=== PATIENT | female | born 1960 | race African-American/Black ===

== ENCOUNTER 2016-12-31 17:38 | Inpatient (IN) | payer MEDICAID ==
[~2016-12-31] VITALS: Ht 157.5 cm; Wt 85.3 kg
[~2016-12-31 17:38] MED LIST: CALC0.253 PO; CARV12.545 PO; CLON0.1T PO; ESTR0.3T3 PO; FERR-43 PO; FURO40TA5 PO; GABA-290 PO; HYDR100T26 PO; INSULIN LISPRO; LEVEMIR; LEVO25TA7 PO; LISI-604 PO; LOSA100T14 PO; NIFE60TA64 PO; OMEP20TA80 PO; SIMV40TA5 PO; [UNRECOGNIZED DRUG - OTHER]
[2016-12-31] MEDS ORDERED: IPRATROPIUM BROMIDE (0.02%) 0.5MG/2.5ML NEB HHN STA (18:18)
[2016-12-31] MEDS ORDERED: ALBUTEROL (0.083%) 2.5MG/3ML NEB HHN STA (18:18)
[2016-12-31] MEDS ORDERED: NITROGLYCERIN OINT 1GM/INCH UDPKT TD ONE (18:30)
[2016-12-31] MEDS ORDERED: ENALAPRIL 2.5MG/2ML VIAL 2ML IV ONE (18:30)
[2016-12-31] MEDS ORDERED: LEVOFLOXACIN 750MG PREMIX 150 ML IV ONE (18:30)
[2016-12-31] MEDS ORDERED: FUROSEMIDE 40MG/4ML VIAL IVP ONE (18:30)
[2016-12-31] MEDS ORDERED: MAGNESIUM/ALUMINUM HYDROXIDE/SIMETHICONE 30ML UDC PO PRN (19:00)
[2016-12-31] MEDS ORDERED: IPRATROPIUM/ALBUTEROL 0.5-3(2.5)MG/3ML NEB INH PRN (19:00)
[2016-12-31 19:07] LABS: PROTHROMBIN TIME 10.8 sec
[2016-12-31] MEDS ORDERED: HYDRALAZINE 20MG/ML VIAL IV ONE (21:00)
[2016-12-31 21:24] LABS: HEMATOCRIT. 31.7 % (36.0-48.0); HEMOGLOBIN. 10.6 g/dL (12.0-16.0); MEAN CORPUSCULAR HEMOGLOBIN 27.4 pg (28.0-32.0); MEAN CORPUSCULAR VOLUME 82.1 fL (81.0-99.0); MEAN PLATELET VOLUME 9.8 fl (7.4-10.4); PLATELET 266 x1000/uL (130-400); RED BLOOD CELL COUNT 3.87 mill/uL (4.2-5.4); RED CELL DISTRIBUTION WIDTH 13.3 % (11.6-14.6)
[2016-12-31 21:38] LABS: CARBON DIOXIDE 22 mEq/L (21-32); CHLORIDE 102 mEq/L (98-107)
[2016-12-31 21:40] LABS: CREATINE KINASE 235 IU/L (26-192); TROPONIN I 0.03 ng/mL (0.00-0.04)
[2016-12-31 21:41] LABS: CREATINE KINASE MB FRACTION 1.2 ng/mL (0.5-3.6)
[2016-12-31 22:01] LABS: ATYPICAL LYMPHOCYTES 1; PLATELET ESTIMATE NORMAL
[2016-12-31] MEDS ORDERED: MAGNESIUM 2 G PREMIX 50 ML IV ONE (22:30)
[2017-01-01] VITALS (9 sets, daily range): BP systolic 130–179; BP diastolic 69–95
[2017-01-01] MEDS: CLONIDINE 0.1MG TABLET PO PRN ×3 (03:48→23:42)
[2017-01-01] MEDS ORDERED: CEFTRIAXONE 1 G PREMIX 50 ML IV SCH (06:00)
[2017-01-01] MEDS ORDERED: DEXTROSE 50% WATER 50ML SYRINGE IV PRN (06:30)
[2017-01-01] MEDS: BLOOD SUGAR DIAGNOSTIC STRIP TEST SCH ×4 (06:40→21:23)
[2017-01-01] MEDS ORDERED: INSULIN LISPRO 100 UNITS/ML SUBCUT SCH (07:40)
[2017-01-01] MEDS ORDERED: IPRATROPIUM/ALBUTEROL 0.5-3(2.5)MG/3ML NEB HHN PRN (08:30)
[2017-01-01 08:47] LABS: HEMATOCRIT. 26.5 % (36.0-48.0); HEMOGLOBIN. 8.9 g/dL (12.0-16.0); MEAN CORPUSCULAR HEMOGLOBIN 27.6 pg (28.0-32.0); MEAN CORPUSCULAR VOLUME 81.9 fL (81.0-99.0); MEAN PLATELET VOLUME 10.3 fl (7.4-10.4); PLATELET 210 x1000/uL (130-400); RED BLOOD CELL COUNT 3.23 mill/uL (4.2-5.4); RED CELL DISTRIBUTION WIDTH 13.1 % (11.6-14.6)
[2017-01-01 08:56] LABS: CARBON DIOXIDE 23 mEq/L (21-32); CHLORIDE 103 mEq/L (98-107)
[2017-01-01] MEDS ORDERED: AZITHROMYCIN 500 MG TABLET PO SCH (09:00)
[2017-01-01] MEDS ORDERED: INSULIN DETEMIR UD 100 UNITS/ML SYR SUBCUT SCH (10:00)
[2017-01-01] MEDS ORDERED: ESTR0.3T3 PO (10:34)
[2017-01-01 10:42] LABS: PLATELET ESTIMATE NORMAL
[2017-01-01] MEDS: NIFEDIPINE XL 30MG TAB PO SCH (10:44)
[2017-01-01] MEDS: INSULIN DETEMIR UD 100 UNITS/ML SYR SUBCUT SCH ×2 (10:45→21:20)
[2017-01-01] MEDS: SODIUM CHLORIDE 0.9% 1,000 ML IV SCH (11:07)
[2017-01-01] MEDS: IPRATROPIUM/ALBUTEROL 0.5-3(2.5)MG/3ML NEB HHN SCH ×2 (11:53→21:07)
[2017-01-01] MEDS: INSULIN LISPRO 100 UNITS/ML SUBCUT SCH ×3 (12:27→21:20)
[2017-01-01] MEDS ORDERED: MAGNESIUM 2 G PREMIX 50 ML IV SCH (15:00)
[2017-01-01] MEDS ORDERED: INSULIN DETEMIR SCH (17:00)
[2017-01-02] VITALS (7 sets, daily range): BP systolic 158–197; BP diastolic 78–98
[2017-01-02] MEDS: SODIUM CHLORIDE 0.9% 1,000 ML IV SCH ×2 (02:13→14:39)
[2017-01-02] MEDS: IPRATROPIUM/ALBUTEROL 0.5-3(2.5)MG/3ML NEB HHN SCH ×4 (02:39→20:48)
[2017-01-02 06:34] LABS: HEMATOCRIT 26.4 % (36.0-48.0); HEMOGLOBIN 8.9 g/dL (12.0-16.0); MEAN CORPUSCULAR HEMOGLOBIN 27.5 pg (28.0-32.0); MEAN CORPUSCULAR VOLUME 81.9 fL (81.0-99.0); PLATELET 201 x1000/uL (130-400); RED BLOOD CELL COUNT 3.22 mill/uL (4.2-5.4); RED CELL DISTRIBUTION WIDTH 12.8 % (11.6-14.6)
[2017-01-02 07:08] LABS: CARBON DIOXIDE 23 mEq/L (21-32); CHLORIDE 109 mEq/L (98-107)
[2017-01-02] MEDS: BLOOD SUGAR DIAGNOSTIC STRIP TEST SCH ×4 (07:11→21:15)
[2017-01-02] MEDS: INSULIN LISPRO 100 UNITS/ML SUBCUT SCH ×4 (07:13→21:14)
[2017-01-02] MEDS: CEFTRIAXONE 1 G PREMIX 50 ML IV SCH (08:06)
[2017-01-02] MEDS: NIFEDIPINE XL 30MG TAB PO SCH (09:21)
[2017-01-02] MEDS: INSULIN DETEMIR UD 100 UNITS/ML SYR SUBCUT SCH ×2 (09:21→21:15)
[2017-01-02] MEDS: CLONIDINE 0.1MG TABLET PO PRN (14:45)
[2017-01-02] MEDS: NIFEDIPINE XL 60MG TAB PO SCH (17:07)
[2017-01-02] MEDS: HYDRALAZINE HCL 100MG TABLET PO SCH (21:13)
[2017-01-02] MEDS: CARVEDILOL 12.5MG TABLET PO SCH (21:14)
[2017-01-03] VITALS: BP_SYST 116; BP_SYST 146; BP_DIAS 64; BP_DIAS 73
[2017-01-03] MEDS: HYDROCODONE/ACETAMINOPHEN 5/325MG TABLET PO PRN ×2 (00:14→10:57)
[2017-01-03] MEDS: IPRATROPIUM/ALBUTEROL 0.5-3(2.5)MG/3ML NEB HHN SCH ×5 (00:41→20:22)
[2017-01-03] MEDS: SODIUM CHLORIDE 0.9% 1,000 ML IV SCH ×2 (03:46→16:28)
[2017-01-03 04:00] VITALS: BP 154/77
[2017-01-03] MEDS: BLOOD SUGAR DIAGNOSTIC STRIP TEST SCH ×4 (06:03→21:28)
[2017-01-03] MEDS: INSULIN LISPRO 100 UNITS/ML SUBCUT SCH ×4 (06:03→21:00)
[2017-01-03 06:16] LABS: BASOPHILS % 0.8 % (0.0-2.0); EOSINOPHILS % 0.7 % (0.0-5.0); HEMATOCRIT. 25.5 % (36.0-48.0); HEMOGLOBIN. 8.6 g/dL (12.0-16.0); LYMPHOCYTES % 14.3 % (20.0-50.0); MEAN CORPUSCULAR HEMOGLOBIN 27.6 pg (28.0-32.0); MEAN CORPUSCULAR VOLUME 82.2 fL (81.0-99.0); MEAN PLATELET VOLUME 9.7 fl (7.4-10.4); MONOCYTES % 13.5 % (2.0-8.0); NEUTROPHILS % 70.7 % (40.0-76.0); PLATELET 197 x1000/uL (130-400); RED BLOOD CELL COUNT 3.11 mill/uL (4.2-5.4); RED CELL DISTRIBUTION WIDTH 13.2 % (11.6-14.6)
[2017-01-03] MEDS: CEFTRIAXONE 1 G PREMIX 50 ML IV SCH (06:26)
[2017-01-03] MEDS: HYDRALAZINE HCL 100MG TABLET PO SCH ×3 (06:27→21:27)
[2017-01-03 07:12] LABS: CARBON DIOXIDE 21 mEq/L (21-32); CHLORIDE 110 mEq/L (98-107)
[2017-01-03 08:00] VITALS: BP 158/77
[2017-01-03] MEDS: NIFEDIPINE XL 60MG TAB PO SCH (08:48)
[2017-01-03] MEDS: CARVEDILOL 12.5MG TABLET PO SCH ×2 (08:48→21:28)
[2017-01-03] MEDS: INSULIN DETEMIR UD 100 UNITS/ML SYR SUBCUT SCH ×2 (10:12→22:05)
[2017-01-03 12:00] VITALS: BP 116/69
[2017-01-03 16:00] VITALS: BP 142/71
[2017-01-03 16:40] LABS: CLARITY URINE CLOUDY (CLEAR); COLOR URINE YELLOW (YELLOW); GLUCOSE URINE 1+ (NEGATIVE); KETONES URINE TRACE (NEGATIVE); LEUKOCYTE ESTERASE URINE NEGATIVE (NEGATIVE); NITRITE URINE NEGATIVE (NEGATIVE); OCCULT BLOOD URINE NEGATIVE (NEGATIVE); PH URINE 5.5 (4.5-8.0); PROTEIN URINE 4+ (NEGATIVE); SPECIFIC GRAVITY URINE 1.023 (1.005-1.030); UROBILINOGEN URINE 0.2 E.U./dL (0.2-1.0)
[2017-01-03 20:00] VITALS: BP 148/80
[2017-01-03] MEDS: ONDANSETRON HCL 4MG/2ML VIAL IV PRN (21:27)
[2017-01-04] VITALS (7 sets, daily range): BP systolic 111–151; BP diastolic 58–74
[2017-01-04] MEDS: IPRATROPIUM/ALBUTEROL 0.5-3(2.5)MG/3ML NEB HHN SCH ×4 (02:02→21:08)
[2017-01-04] MEDS: SODIUM CHLORIDE 0.9% 1,000 ML IV SCH ×2 (04:43→18:15)
[2017-01-04] MEDS: INSULIN LISPRO 100 UNITS/ML SUBCUT SCH ×4 (06:15→21:00)
[2017-01-04] MEDS: BLOOD SUGAR DIAGNOSTIC STRIP TEST SCH ×4 (06:15→21:26)
[2017-01-04] MEDS: CEFTRIAXONE 1 G PREMIX 50 ML IV SCH (06:15)
[2017-01-04] MEDS: HYDRALAZINE HCL 100MG TABLET PO SCH ×3 (06:15→21:28)
[2017-01-04 06:34] LABS: BASOPHILS % 0.5 % (0.0-2.0); EOSINOPHILS % 1.1 % (0.0-5.0); HEMATOCRIT. 24.8 % (36.0-48.0); HEMOGLOBIN. 8.2 g/dL (12.0-16.0); LYMPHOCYTES % 16.6 % (20.0-50.0); MEAN CORPUSCULAR HEMOGLOBIN 27.5 pg (28.0-32.0); MEAN CORPUSCULAR VOLUME 83.6 fL (81.0-99.0); MEAN PLATELET VOLUME 10.1 fl (7.4-10.4); MONOCYTES % 12.3 % (2.0-8.0); NEUTROPHILS % 69.5 % (40.0-76.0); PLATELET 188 x1000/uL (130-400); RED BLOOD CELL COUNT 2.97 mill/uL (4.2-5.4)
[2017-01-04] MEDS: ONDANSETRON HCL 4MG/2ML VIAL IV PRN (07:25)
[2017-01-04] MEDS: NIFEDIPINE XL 60MG TAB PO SCH (08:13)
[2017-01-04] MEDS: CARVEDILOL 12.5MG TABLET PO SCH ×3 (08:14→21:29)
[2017-01-04] MEDS: LEVOTHYROXINE SODIUM 25MCG TABLET PO SCH (10:16)
[2017-01-04] MEDS: CALCITRIOL 0.25MCG CAPSULE PO SCH (10:16)
[2017-01-04] MEDS: FERROUS SULFATE 325MG TABLET PO SCH ×2 (10:16→17:07)
[2017-01-04] MEDS: FOLIC ACID/VITAMIN B COMP W-C TABLET PO SCH (10:17)
[2017-01-04 10:20] LABS: TOTAL IRON BINDING CAPACITY 127 ug/dL (250-450)
[2017-01-04] MEDS: INSULIN DETEMIR UD 100 UNITS/ML SYR SUBCUT SCH ×2 (10:20→21:34)
[2017-01-04] MEDS ORDERED: MANNITOL 12.5G (25%) VIAL 50ML IV NR (11:30)
[2017-01-04 12:50] LABS: FERRITIN 772 ng/mL (10-291)
[2017-01-04 13:01] LABS: HEPATITIS B SURFACE ANTIGEN NEGATIVE
[2017-01-04] MEDS: HYDROCODONE/ACETAMINOPHEN 5/325MG TABLET PO PRN ×2 (16:03→20:03)
[2017-01-04] MEDS: GUAIFENESIN 600MG ER TABLET PO SCH (21:28)
[2017-01-04] MEDS: EPOETIN ALFA 4000UNITS/ML VIAL SUBCUT SCH (21:30)
[2017-01-05] VITALS: BP 139/68
[2017-01-05] MEDS: IPRATROPIUM/ALBUTEROL 0.5-3(2.5)MG/3ML NEB HHN SCH ×4 (02:46→20:21)
[2017-01-05 04:00] VITALS: BP 135/68
[2017-01-05] MEDS: BLOOD SUGAR DIAGNOSTIC STRIP TEST SCH ×4 (06:46→20:27)
[2017-01-05] MEDS: CEFTRIAXONE 1 G PREMIX 50 ML IV SCH (06:46)
[2017-01-05] MEDS: HYDRALAZINE HCL 100MG TABLET PO SCH ×3 (06:46→21:24)
[2017-01-05] MEDS: LEVOTHYROXINE SODIUM 25MCG TABLET PO SCH (06:46)
[2017-01-05 06:49] LABS: PROTHROMBIN TIME 10.5 sec
[2017-01-05] MEDS: INSULIN LISPRO 100 UNITS/ML SUBCUT SCH ×4 (06:52→20:34)
[2017-01-05 07:40] LABS: BASOPHILS % 0.5 % (0.0-2.0); EOSINOPHILS % 1.2 % (0.0-5.0); HEMATOCRIT. 23.6 % (36.0-48.0); HEMOGLOBIN. 7.9 g/dL (12.0-16.0); LYMPHOCYTES % 16.7 % (20.0-50.0); MEAN CORPUSCULAR HEMOGLOBIN 27.7 pg (28.0-32.0); MEAN CORPUSCULAR VOLUME 83.1 fL (81.0-99.0); MEAN PLATELET VOLUME 10.3 fl (7.4-10.4); MONOCYTES % 12.3 % (2.0-8.0); NEUTROPHILS % 69.3 % (40.0-76.0); PLATELET 162 x1000/uL (130-400); RED BLOOD CELL COUNT 2.84 mill/uL (4.2-5.4)
[2017-01-05 08:00] VITALS: BP 149/74
[2017-01-05] MEDS: FOLIC ACID/VITAMIN B COMP W-C TABLET PO SCH (08:39)
[2017-01-05] MEDS: NIFEDIPINE XL 60MG TAB PO SCH (08:39)
[2017-01-05] MEDS: GUAIFENESIN 600MG ER TABLET PO SCH ×2 (08:39→20:24)
[2017-01-05] MEDS: CALCITRIOL 0.25MCG CAPSULE PO SCH (08:39)
[2017-01-05] MEDS: CARVEDILOL 12.5MG TABLET PO SCH ×2 (08:39→20:24)
[2017-01-05] MEDS: DIPHENHYDRAMINE 25MG CAPSULE PO PRN (08:39)
[2017-01-05] MEDS: SODIUM CHLORIDE 0.9% 1,000 ML IV SCH (08:40)
[2017-01-05] MEDS: FERROUS SULFATE 325MG TABLET PO SCH ×2 (08:40→17:19)
[2017-01-05] MEDS: INSULIN DETEMIR UD 100 UNITS/ML SYR SUBCUT SCH ×2 (10:26→21:26)
[2017-01-05] MEDS: ONDANSETRON HCL 4MG/2ML VIAL IV PRN ×2 (10:27→19:46)
[2017-01-05 12:00] VITALS: BP 139/70
[2017-01-05 16:00] VITALS: BP 150/76
[2017-01-05] MEDS: AZITHROMYCIN 500 MG in DEXT 5% WATER 250 ML IV SCH (17:19)
[2017-01-05 20:00] VITALS: BP 149/89
[2017-01-06] VITALS: BP 142/73
[2017-01-06] MEDS: SODIUM CHLORIDE 0.9% 1,000 ML IV SCH (00:17)
[2017-01-06] MEDS: IPRATROPIUM/ALBUTEROL 0.5-3(2.5)MG/3ML NEB HHN SCH ×5 (01:44→20:30)
[2017-01-06 04:00] VITALS: BP 146/70
[2017-01-06] MEDS: HYDRALAZINE HCL 100MG TABLET PO SCH ×3 (05:32→21:48)
[2017-01-06 05:47] LABS: BASOPHILS % 0.7 % (0.0-2.0); EOSINOPHILS % 1.4 % (0.0-5.0); HEMATOCRIT. 25.2 % (36.0-48.0); HEMOGLOBIN. 8.3 g/dL (12.0-16.0); LYMPHOCYTES % 19.3 % (20.0-50.0); MEAN CORPUSCULAR HEMOGLOBIN 27.3 pg (28.0-32.0); MEAN CORPUSCULAR VOLUME 82.9 fL (81.0-99.0); MONOCYTES % 12.3 % (2.0-8.0); NEUTROPHILS % 66.3 % (40.0-76.0); PLATELET 198 x1000/uL (130-400); RED BLOOD CELL COUNT 3.04 mill/uL (4.2-5.4); RED CELL DISTRIBUTION WIDTH 13.1 % (11.6-14.6)
[2017-01-06] MEDS: BLOOD SUGAR DIAGNOSTIC STRIP TEST SCH ×4 (06:23→21:00)
[2017-01-06] MEDS: CEFTRIAXONE 1 G PREMIX 50 ML IV SCH (06:24)
[2017-01-06] MEDS: LEVOTHYROXINE SODIUM 25MCG TABLET PO SCH (06:24)
[2017-01-06] MEDS: INSULIN LISPRO 100 UNITS/ML SUBCUT SCH ×4 (06:27→21:47)
[2017-01-06 08:00] VITALS: BP 141/70
[2017-01-06] MEDS: ONDANSETRON HCL 4MG/2ML VIAL IV PRN (08:17)
[2017-01-06] MEDS: FERROUS SULFATE 325MG TABLET PO SCH (08:17)
[2017-01-06] MEDS: FOLIC ACID/VITAMIN B COMP W-C TABLET PO SCH (09:00)
[2017-01-06] MEDS: GUAIFENESIN 600MG ER TABLET PO SCH ×2 (09:00→21:48)
[2017-01-06] MEDS: NIFEDIPINE XL 60MG TAB PO SCH (09:00)
[2017-01-06] MEDS: CALCITRIOL 0.25MCG CAPSULE PO SCH (09:00)
[2017-01-06] MEDS: CARVEDILOL 12.5MG TABLET PO SCH ×2 (09:00→21:49)
[2017-01-06] MEDS: INSULIN DETEMIR UD 100 UNITS/ML SYR SUBCUT SCH ×2 (09:37→21:47)
[2017-01-06] MEDS: ACETAMINOPHEN 325MG TABLET PO PRN (11:54)
[2017-01-06 12:00] VITALS: BP 146/70
[2017-01-06 16:00] VITALS: BP 193/92
[2017-01-06] MEDS ORDERED: HEPARIN SODIUM 1,000 UNIT/1ML VIAL IV NR (17:30)
[2017-01-06] MEDS: AZITHROMYCIN 500 MG in DEXT 5% WATER 250 ML IV SCH (17:53)
[2017-01-06] MEDS: IRON SUCROSE COMPLEX 100 MG/5 ML ML IV SCH (17:53)
[2017-01-06] MEDS: CLONIDINE 0.1MG TABLET PO PRN (17:54)
[2017-01-06 20:00] VITALS: BP 143/76
[2017-01-06] MEDS: EPOETIN ALFA 4000UNITS/ML VIAL SUBCUT SCH (21:48)
[2017-01-07] VITALS (11 sets, daily range): BP systolic 127–198; BP diastolic 69–96
[2017-01-07] MEDS: SODIUM CHLORIDE 0.9% 1,000 ML IV SCH ×3 (00:22→22:00)
[2017-01-07] MEDS: IPRATROPIUM/ALBUTEROL 0.5-3(2.5)MG/3ML NEB HHN SCH ×4 (00:36→20:43)
[2017-01-07 06:00] LABS: BASOPHILS % 0.6 % (0.0-2.0); EOSINOPHILS % 2.9 % (0.0-5.0); HEMATOCRIT. 22.1 % (36.0-48.0); HEMOGLOBIN. 7.4 g/dL (12.0-16.0); LYMPHOCYTES % 20.3 % (20.0-50.0); MEAN CORPUSCULAR HEMOGLOBIN 27.3 pg (28.0-32.0); MEAN CORPUSCULAR VOLUME 81.1 fL (81.0-99.0); MEAN PLATELET VOLUME 9.6 fl (7.4-10.4); MONOCYTES % 12.8 % (2.0-8.0); NEUTROPHILS % 63.4 % (40.0-76.0); PLATELET 191 x1000/uL (130-400); RED BLOOD CELL COUNT 2.72 mill/uL (4.2-5.4); RED CELL DISTRIBUTION WIDTH 12.7 % (11.6-14.6)
[2017-01-07] MEDS: LEVOTHYROXINE SODIUM 25MCG TABLET PO SCH (06:13)
[2017-01-07] MEDS: CEFTRIAXONE 1 G PREMIX 50 ML IV SCH (06:13)
[2017-01-07] MEDS: HYDRALAZINE HCL 100MG TABLET PO SCH ×3 (06:13→21:09)
[2017-01-07] MEDS: INSULIN LISPRO 100 UNITS/ML SUBCUT SCH ×4 (07:40→21:00)
[2017-01-07] MEDS: BLOOD SUGAR DIAGNOSTIC STRIP TEST SCH ×4 (07:40→21:27)
[2017-01-07] MEDS: IRON SUCROSE COMPLEX 100 MG/5 ML ML IV SCH (09:33)
[2017-01-07] MEDS: GUAIFENESIN 600MG ER TABLET PO SCH ×2 (09:34→21:09)
[2017-01-07] MEDS: CALCITRIOL 0.25MCG CAPSULE PO SCH (09:34)
[2017-01-07] MEDS: FOLIC ACID/VITAMIN B COMP W-C TABLET PO SCH (09:34)
[2017-01-07] MEDS: NIFEDIPINE XL 60MG TAB PO SCH (09:34)
[2017-01-07] MEDS: CARVEDILOL 12.5MG TABLET PO SCH ×2 (09:35→21:09)
[2017-01-07] MEDS: INSULIN DETEMIR UD 100 UNITS/ML SYR SUBCUT SCH ×2 (11:57→21:28)
[2017-01-07] MEDS: ONDANSETRON HCL 4MG/2ML VIAL IV PRN (14:16)
[2017-01-07] MEDS: AZITHROMYCIN 500 MG in DEXT 5% WATER 250 ML IV SCH (15:07)
[2017-01-07] MEDS: CLONIDINE 0.1MG TABLET PO PRN (16:01)
[2017-01-08 00:07] VITALS: BP 159/72
[2017-01-08] MEDS: IPRATROPIUM/ALBUTEROL 0.5-3(2.5)MG/3ML NEB HHN SCH ×6 (00:27→19:58)
[2017-01-08] MEDS: SODIUM CHLORIDE 0.9% 1,000 ML IV SCH ×2 (02:45→17:14)
[2017-01-08 04:00] VITALS: BP 183/84
[2017-01-08] MEDS: ONDANSETRON HCL 4MG/2ML VIAL IV PRN ×3 (04:29→17:32)
[2017-01-08] MEDS: CLONIDINE 0.1MG TABLET PO PRN ×2 (04:48→17:13)
[2017-01-08] MEDS: LEVOTHYROXINE SODIUM 25MCG TABLET PO SCH (06:04)
[2017-01-08] MEDS: CEFTRIAXONE 1 G PREMIX 50 ML IV SCH (06:04)
[2017-01-08] MEDS: HYDRALAZINE HCL 100MG TABLET PO SCH ×3 (06:20→23:17)
[2017-01-08] MEDS: BLOOD SUGAR DIAGNOSTIC STRIP TEST SCH ×4 (06:22→20:58)
[2017-01-08] MEDS: INSULIN LISPRO 100 UNITS/ML SUBCUT SCH ×4 (06:22→21:03)
[2017-01-08 06:42] LABS: BASOPHILS % 0.7 % (0.0-2.0); EOSINOPHILS % 2.9 % (0.0-5.0); HEMATOCRIT. 27.2 % (36.0-48.0); HEMOGLOBIN. 9.1 g/dL (12.0-16.0); LYMPHOCYTES % 16.6 % (20.0-50.0); MEAN CORPUSCULAR HEMOGLOBIN 27.4 pg (28.0-32.0); MEAN CORPUSCULAR VOLUME 81.7 fL (81.0-99.0); MEAN PLATELET VOLUME 9.6 fl (7.4-10.4); NEUTROPHILS % 70.8 % (40.0-76.0); PLATELET 255 x1000/uL (130-400); RED BLOOD CELL COUNT 3.33 mill/uL (4.2-5.4); RED CELL DISTRIBUTION WIDTH 13.1 % (11.6-14.6)
[2017-01-08 08:00] VITALS: BP 198/90
[2017-01-08] MEDS: FOLIC ACID/VITAMIN B COMP W-C TABLET PO SCH (09:17)
[2017-01-08] MEDS: NIFEDIPINE XL 60MG TAB PO SCH (09:17)
[2017-01-08] MEDS: CALCITRIOL 0.25MCG CAPSULE PO SCH (09:18)
[2017-01-08] MEDS: CARVEDILOL 12.5MG TABLET PO SCH (09:18)
[2017-01-08] MEDS: INSULIN DETEMIR UD 100 UNITS/ML SYR SUBCUT SCH ×2 (09:19→23:12)
[2017-01-08] MEDS: GUAIFENESIN 600MG ER TABLET PO SCH ×2 (09:25→21:00)
[2017-01-08] MEDS ORDERED: NIFEDIPINE XL 30MG TAB PO NR (11:45)
[2017-01-08 12:00] VITALS: BP 185/89
[2017-01-08] MEDS ORDERED: KCL 20MEQ/100ML PREMIX 100 ML IV NR (14:00)
[2017-01-08 16:00] VITALS: BP 204/118
[2017-01-08] MEDS: AZITHROMYCIN 500 MG in DEXT 5% WATER 250 ML IV SCH (17:14)
[2017-01-08] MEDS: DIPHENHYDRAMINE 25MG CAPSULE PO PRN (17:32)
[2017-01-08 20:00] VITALS: BP 149/78
[2017-01-08] MEDS ORDERED: CARVEDILOL 12.5MG TABLET PO SCH (21:00)
[2017-01-09] VITALS (17 sets, daily range): BP systolic 138–191; BP diastolic 74–93
[2017-01-09] MEDS: IPRATROPIUM/ALBUTEROL 0.5-3(2.5)MG/3ML NEB HHN SCH ×6 (01:12→21:05)
[2017-01-09] MEDS: HYDRALAZINE HCL 100MG TABLET PO SCH ×4 (06:00→21:26)
[2017-01-09] MEDS: SODIUM CHLORIDE 0.9% 1,000 ML IV SCH (06:20)
[2017-01-09] MEDS: BLOOD SUGAR DIAGNOSTIC STRIP TEST SCH ×4 (06:21→21:28)
[2017-01-09] MEDS: CEFTRIAXONE 1 G PREMIX 50 ML IV SCH (06:21)
[2017-01-09] MEDS: LEVOTHYROXINE SODIUM 25MCG TABLET PO SCH (06:21)
[2017-01-09 07:03] LABS: INR 1.1; PARTIAL THROMBOPLASTIN TIME 29.2 sec (24.0-34.0); PROTHROMBIN TIME 11.2 sec
[2017-01-09 07:13] LABS: BASOPHILS % 0.5 % (0.0-2.0); EOSINOPHILS % 2.5 % (0.0-5.0); HEMATOCRIT. 26.7 % (36.0-48.0); HEMOGLOBIN. 9.1 g/dL (12.0-16.0); LYMPHOCYTES % 17.6 % (20.0-50.0); MEAN CORPUSCULAR HEMOGLOBIN 27.6 pg (28.0-32.0); MEAN CORPUSCULAR VOLUME 81.2 fL (81.0-99.0); MEAN PLATELET VOLUME 9.6 fl (7.4-10.4); MONOCYTES % 9.8 % (2.0-8.0); NEUTROPHILS % 69.6 % (40.0-76.0); PLATELET 279 x1000/uL (130-400); RED BLOOD CELL COUNT 3.29 mill/uL (4.2-5.4); RED CELL DISTRIBUTION WIDTH 12.9 % (11.6-14.6)
[2017-01-09 07:32] LABS: CARBON DIOXIDE 23 mEq/L (21-32); CHLORIDE 109 mEq/L (98-107)
[2017-01-09] MEDS: INSULIN LISPRO 100 UNITS/ML SUBCUT SCH ×4 (07:40→21:00)
[2017-01-09] MEDS ORDERED: CLONIDINE 0.2MG TABLET PO PRN (08:15)
[2017-01-09] MEDS: GUAIFENESIN 600MG ER TABLET PO SCH ×2 (09:00→21:26)
[2017-01-09] MEDS: NIFEDIPINE XL 90MG TAB PO SCH (09:00)
[2017-01-09] MEDS: FOLIC ACID/VITAMIN B COMP W-C TABLET PO SCH (09:00)
[2017-01-09] MEDS: CALCITRIOL 0.25MCG CAPSULE PO SCH (09:00)
[2017-01-09] MEDS: CARVEDILOL 25MG TABLET PO SCH ×2 (09:00→21:25)
[2017-01-09] MEDS ORDERED: SODIUM BICARBONATE 4% (2.4MEQ) 5ML VIAL IV ONE (09:34)
[2017-01-09] MEDS ORDERED: LIDOCAINE HCL 1% 20ML VIAL (Pyxis) INJ ONE (09:34)
[2017-01-09] MEDS: INSULIN DETEMIR UD 100 UNITS/ML SYR SUBCUT SCH ×2 (10:00→21:29)
[2017-01-09] MEDS ORDERED: DEXT 5% WATER 250 ML IV ONE (12:00)
[2017-01-09] MEDS ORDERED: FENTANYL CITRATE/PF 50MCG/ML 2ML VIAL ONE (14:01)
[2017-01-09] MEDS ORDERED: FENTANYL CITRATE/PF 50MCG/ML 2ML VIAL IV ONE (14:15)
[2017-01-09] MEDS ORDERED: FENTANYL CITRATE/PF 50MCG/ML 2ML VIAL IV NR (14:30)
[2017-01-09] MEDS: ACETAMINOPHEN 325MG TABLET PO PRN (15:18)
[2017-01-09] MEDS: AZITHROMYCIN 500 MG in DEXT 5% WATER 250 ML IV SCH (15:18)
[2017-01-09] MEDS: HYDROCODONE/ACETAMINOPHEN 5/325MG TABLET PO PRN ×2 (17:18→21:27)
[2017-01-09] MEDS ORDERED: HEPARIN SODIUM 1,000 UNIT/1ML VIAL IV ONE (22:45)
[2017-01-09] MEDS ORDERED: HYDROCODONE/ACETAMINOPHEN 5/325MG TABLET PO STA (22:55)
[2017-01-09] MEDS ORDERED: HYDROCODONE/APAP 7.5/325MG 1 TAB TABLET PO PRN (23:00)
[2017-01-09] MEDS ORDERED: HEPARIN SODIUM 1,000 UNIT/1ML VIAL IV NR (23:30)
[2017-01-10] MEDS: IPRATROPIUM/ALBUTEROL 0.5-3(2.5)MG/3ML NEB HHN SCH ×4 (01:01→11:58)
[2017-01-10 04:00] VITALS: BP 187/90
[2017-01-10] MEDS: HYDRALAZINE HCL 100MG TABLET PO SCH ×2 (04:28→12:29)
[2017-01-10] MEDS: EPOETIN ALFA 4000UNITS/ML VIAL SUBCUT SCH (04:31)
[2017-01-10] MEDS: BLOOD SUGAR DIAGNOSTIC STRIP TEST SCH ×2 (06:25→11:46)
[2017-01-10] MEDS: INSULIN LISPRO 100 UNITS/ML SUBCUT SCH ×2 (06:28→12:29)
[2017-01-10] MEDS: LEVOTHYROXINE SODIUM 25MCG TABLET PO SCH (06:28)
[2017-01-10 08:00] VITALS: BP 164/95
[2017-01-10] MEDS ORDERED: HYDROCODONE/APAP 7.5/325MG 1 TAB TABLET PO PRN (08:15)
[2017-01-10] MEDS: NIFEDIPINE XL 90MG TAB PO SCH (08:32)
[2017-01-10] MEDS: CARVEDILOL 25MG TABLET PO SCH (08:32)
[2017-01-10] MEDS: GUAIFENESIN 600MG ER TABLET PO SCH (08:32)
[2017-01-10] MEDS: FOLIC ACID/VITAMIN B COMP W-C TABLET PO SCH (08:32)
[2017-01-10] MEDS: INSULIN DETEMIR UD 100 UNITS/ML SYR SUBCUT SCH (08:38)
[2017-01-10] MEDS: CALCITRIOL 0.25MCG CAPSULE PO SCH (08:41)
[2017-01-10] MEDS: SODIUM CHLORIDE 0.9% 1,000 ML IV SCH (08:45)
[2017-01-10 12:00] VITALS: BP 142/77
[2017-01-10] MEDS: AZITHROMYCIN 500 MG in DEXT 5% WATER 250 ML IV SCH (12:30)
[2017-01-10 13:07] VITALS: BP 142/77
== END 2017-01-10 14:32 | disposition home or self-care (01) | DRG 720 ==
LOC: ER 18:04 → 8WST 18:36 → EDBEDREQ 18:39 → ENRESERV 21:32 → 8WST 01-01 03:56
PROVIDERS: ADMIT Internal Medicine; ATTEND Internal Medicine
PROC: 5A1D60Z (ICD-10-PCS; principal; 2017-01-04)
PROC: 02HV33Z Insertion of Infusion Device into Superior Vena Cava, Percutaneous Approach (ICD-10-PCS; 2017-01-04)
PROC: B5181ZA Fluoroscopy of Superior Vena Cava using Low Osmolar Contrast, Guidance (ICD-10-PCS; 2017-01-04)
PROC: B548ZZA Ultrasonography of Superior Vena Cava, Guidance (ICD-10-PCS; 2017-01-04)
PROC: 30233N1 Transfusion of Nonautologous Red Blood Cells into Peripheral Vein, Percutaneous Approach (ICD-10-PCS; 2017-01-07)
PROC: 02PYX3Z Removal of Infusion Device from Great Vessel, External Approach (ICD-10-PCS; 2017-01-09)
PROC: 02HV33Z Insertion of Infusion Device into Superior Vena Cava, Percutaneous Approach (ICD-10-PCS; 2017-01-09)
PROC: B5181ZA Fluoroscopy of Superior Vena Cava using Low Osmolar Contrast, Guidance (ICD-10-PCS; 2017-01-09)
DX: A41.9 Sepsis, unspecified organism (principal); N17.0 Acute kidney failure with tubular necrosis; J96.00 Acute respiratory failure, unspecified whether with hypoxia or hypercapnia; G93.5 Compression of brain; I50.23 Acute on chronic systolic (congestive) heart failure; J18.1 Lobar pneumonia, unspecified organism; N18.6 End stage renal disease; E11.22 Type 2 diabetes mellitus with diabetic chronic kidney disease; I13.2 Hypertensive heart and chronic kidney disease with heart failure and with stage 5 chronic kidney disease, or end stage renal disease; E11.40 Type 2 diabetes mellitus with diabetic neuropathy, unspecified; E44.0 Moderate protein-calorie malnutrition; E03.9 Hypothyroidism, unspecified; E11.319 Type 2 diabetes mellitus with unspecified diabetic retinopathy without macular edema; D63.1 Anemia in chronic kidney disease; D72.821 Monocytosis (symptomatic); E11.65 Type 2 diabetes mellitus with hyperglycemia; D50.9 Iron deficiency anemia, unspecified; E66.9 Obesity, unspecified; E78.00 Pure hypercholesterolemia, unspecified; E83.42 Hypomagnesemia; E87.6 Hypokalemia; J30.2 Other seasonal allergic rhinitis; K76.0 Fatty (change of) liver, not elsewhere classified; R59.0 Localized enlarged lymph nodes; E26.9 Hyperaldosteronism, unspecified; E78.5 Hyperlipidemia, unspecified; Z79.899 Other long term (current) drug therapy; Z82.49 Family history of ischemic heart disease and other diseases of the circulatory system; Z83.3 Family history of diabetes mellitus; Z87.891 Personal history of nicotine dependence; Z99.2 Dependence on renal dialysis; Z91.048 Other nonmedicinal substance allergy status; Z79.4 Long term (current) use of insulin; Z90.49 Acquired absence of other specified parts of digestive tract; Z90.710 Acquired absence of both cervix and uterus; Z84.1 Family history of disorders of kidney and ureter; Z68.34 Body mass index [BMI] 34.0-34.9, adult
CPT/HCPCS: 36415; 36558; 36569; 36589; 71010; 71250; 76700; 76770; 76937; 77001; 80048; 80053; 80061; 81001; 82088; 82270; 82550; 82553; 82668; 82728; 82962; 83540; 83550; 83605; 83690; 83735; 83880; 84244; 84484; 85025; 85027; 85610; 85730; 86803; 86850; 86900; 86920; 87040; 87070; 87086; 87340; 93005; 93306; 93970; 94640; 96365; 96366; 96375; 97116; 97162; 97530; 99291; C1750; C1752; C1769; C1893; J0360; J0456; J0696; J0885; J1642; J1644; J1815; J1940; J1956; J2150; J2405; J3010; J3475; J3480; J3490; J7030; J7040; J7050; J7060; J7611; J7620; P9016; Q0163

== ENCOUNTER 2017-08-17 07:27 | Emergency (ER) | payer MEDICAID ==
[~2017-08-17] VITALS: Ht 165.1 cm; Wt 85.0 kg
[~2017-08-17 07:27] MED LIST changes: -LEVEMIR; +LEVVL SQ; +OMEP20TA2 PO; -OMEP20TA80 PO
[2017-08-17] MEDS ORDERED: ONDANSETRON HCL 4MG/2ML VIAL IV STA (07:44)
[2017-08-17] MEDS ORDERED: MORPHINE SULFATE 4 MG/ML CPJ (NOT FOR IM USE) IV STA (07:44)
[2017-08-17 08:09] LABS: BASOPHILS % 1.2 % (0.0-2.0); EOSINOPHILS % 1.7 % (0.0-5.0); HEMATOCRIT. 40.6 % (36.0-48.0); HEMOGLOBIN. 13.1 g/dL (12.0-16.0); LYMPHOCYTES % 21.2 % (20.0-50.0); MEAN CORPUSCULAR VOLUME 86.7 fL (81.0-99.0); MEAN PLATELET VOLUME 10.6 fl (7.4-10.4); MONOCYTES % 11.1 % (2.0-8.0); NEUTROPHILS % 64.8 % (40.0-76.0); PLATELET 226 x1000/uL (130-400); RED BLOOD CELL COUNT 4.68 mill/uL (4.2-5.4); RED CELL DISTRIBUTION WIDTH 15.5 % (11.6-14.6)
[2017-08-17 08:12] LABS: PROTHROMBIN TIME 10.3 sec (9.4-11.6)
[2017-08-17 08:22] LABS: CHLORIDE 94 mEq/L (98-107); TROPONIN I < 0.02 ng/mL (0.00-0.04)
[2017-08-17] MEDS ORDERED: INSULIN REGULAR (HUMULIN R) 300UNITS/3ML IV NR (08:30)
[2017-08-17] MEDS ORDERED: IOHEXOL-300 100 ML BOTTLE ONE (09:53)
[2017-08-17] MEDS ORDERED: MORPHINE SULFATE 4 MG/ML CPJ (NOT FOR IM USE) IV SCH (11:30)
[2017-08-17] MEDS ORDERED: FAMOTIDINE 20MG/2ML VIAL IV SCH (11:30)
[2017-08-17 13:38] VITALS: BP 134/65
== END 2017-08-17 13:38 | disposition home or self-care (01) ==
LOC: ER 07:35
DX: R10.13 Epigastric pain (principal); R11.2 Nausea with vomiting, unspecified; I12.0 Hypertensive chronic kidney disease with stage 5 chronic kidney disease or end stage renal disease; E87.6 Hypokalemia; E11.65 Type 2 diabetes mellitus with hyperglycemia; E87.1 Hypo-osmolality and hyponatremia; E11.22 Type 2 diabetes mellitus with diabetic chronic kidney disease; N18.6 End stage renal disease; Z86.73 Personal history of transient ischemic attack (TIA), and cerebral infarction without residual deficits; Z90.49 Acquired absence of other specified parts of digestive tract; Z99.2 Dependence on renal dialysis; Z79.4 Long term (current) use of insulin; Z90.710 Acquired absence of both cervix and uterus; Z88.8 Allergy status to other drugs, medicaments and biological substances
CPT/HCPCS: 36415; 71045; 74177; 80053; 82962; 83690; 83880; 84484; 85025; 85610; 93005; 96374; 96375; 96376; 99285; J1815; J2270; J2405; J3490; Q9967

== ENCOUNTER 2018-04-03 21:17 | Inpatient (IN) | payer MEDICAID ==
[~2018-04-03] VITALS: Ht 152.4 cm; Wt 81.4 kg
[2018-04-03] MEDS ORDERED: KETOROLAC 30MG/ML VIAL IV STA (21:52)
[2018-04-03] MEDS ORDERED: ACETAMINOPHEN 325MG TABLET PO STA (21:52)
[2018-04-03] MEDS ORDERED: MORPHINE SULFATE 4 MG/ML CPJ (NOT FOR IM USE) IV STA (21:52)
[2018-04-03] MEDS ORDERED: ONDANSETRON HCL 4MG/2ML INJ IV STA (21:52)
[2018-04-04 01:54] LABS: BASOPHILS % 0.4 % (0.0-2.0); EOSINOPHILS % 1.2 % (0.0-5.0); HEMATOCRIT. 37.9 % (36.0-48.0); HEMOGLOBIN. 12.4 g/dL (12.0-16.0); LYMPHOCYTES % 19.8 % (20.0-50.0); MEAN CORPUSCULAR HEMOGLOBIN 31.3 pg (28.0-32.0); MEAN CORPUSCULAR VOLUME 95.4 fL (81.0-99.0); MEAN PLATELET VOLUME 9.5 fl (7.4-10.4); MONOCYTES % 8.1 % (2.0-8.0); NEUTROPHILS % 70.5 % (40.0-76.0); PLATELET 246 x1000/uL (130-400); RED BLOOD CELL COUNT 3.98 mill/uL (4.2-5.4); RED CELL DISTRIBUTION WIDTH 15.4 % (11.6-14.6)
[2018-04-04 01:55] LABS: CHLORIDE 102 mEq/L (98-107)
[2018-04-04 01:58] LABS: PROTHROMBIN TIME 9.9 sec (9.1-11.1)
[2018-04-04] MEDS ORDERED: CEFTRIAXONE 1 G PREMIX 50 ML IV ONE (02:00)
[2018-04-04 02:03] LABS: ETHANOL BLOOD < 10 mg/dL
[2018-04-04 02:08] LABS: CLARITY URINE CLOUDY (CLEAR); COLOR URINE ORANGE (YELLOW); KETONES URINE TRACE (NEGATIVE); LEUKOCYTE ESTERASE URINE 1+ (NEGATIVE); NITRITE URINE NEGATIVE (NEGATIVE); OCCULT BLOOD URINE 3+ (NEGATIVE); PH URINE 7.5 (4.5-8.0); PROTEIN URINE 3+ (NEGATIVE); SPECIFIC GRAVITY URINE 1.019 (1.005-1.030); UROBILINOGEN URINE 0.2 E.U./dL (0.2-1.0)
[2018-04-04 04:15] VITALS: BP 128/47
[2018-04-04 07:30] VITALS: BP 112/50
[2018-04-04] MEDS ORDERED: CLONIDINE 0.1MG TABLET PO PRN (08:30)
[2018-04-04] MEDS ORDERED: GUAIFENESIN 200MG/10ML SUGAR FREE UDC PO PRN (08:30)
[2018-04-04] MEDS ORDERED: MAGNESIUM/ALUMINUM HYDROXIDE/SIMETHICONE 30ML UDC PO PRN (08:30)
[2018-04-04] MEDS ORDERED: NA PHOS,M-B/NA PHOS,DI-BA ENEMA 118ML PR PRN (08:30)
[2018-04-04] MEDS ORDERED: ACETAMINOPHEN 325MG TABLET PO PRN (08:30)
[2018-04-04] MEDS ORDERED: LORAZEPAM 2MG/ML CPJ IV PRN (08:30)
[2018-04-04] MEDS ORDERED: HYDROCODONE/ACETAMINOPHEN 5/325MG TABLET PO PRN (08:30)
[2018-04-04] MEDS ORDERED: DOCUSATE SODIUM 100MG CAPSULE PO PRN (08:30)
[2018-04-04] MEDS ORDERED: ONDANSETRON HCL 4MG/2ML INJ IV PRN (08:30)
[2018-04-04] MEDS ORDERED: IPRATROPIUM/ALBUTEROL 0.5-3(2.5)MG/3ML NEB INH PRN (08:30)
[2018-04-04] MEDS ORDERED: DIPHENHYDRAMINE 50MG/ML VIAL IV PRN (08:30)
[2018-04-04] MEDS ORDERED: LEVOFLOXACIN 500MG PREMIX 100 ML IV NR (10:00)
[2018-04-04] MEDS ORDERED: DEXTROSE 50% WATER 50ML SYRINGE IV PRN (10:15)
[2018-04-04] MEDS: MORPHINE SULFATE 4 MG/ML CPJ (NOT FOR IM USE) IV PRN (10:34)
[2018-04-04] MEDS: ENOXAPARIN 40MG/0.4ML SYR SUBCUT SCH (10:34)
[2018-04-04 12:35] VITALS: BP 117/53
[2018-04-04] MEDS: SEVELAMER CARBONATE 800 MG TABLET PO SCH ×2 (12:40→18:03)
[2018-04-04] MEDS: INSULIN LISPRO 100 UNITS/ML SUBCUT SCH ×3 (13:05→22:07)
[2018-04-04] MEDS: BLOOD SUGAR DIAGNOSTIC STRIP TEST SCH ×3 (13:05→21:06)
[2018-04-04] MEDS: CLONIDINE 0.1MG TABLET PO SCH ×2 (14:00→22:05)
[2018-04-04] MEDS: HYDRALAZINE HCL 100MG TABLET PO SCH ×2 (14:00→22:04)
[2018-04-04 16:00] VITALS: BP 131/62
[2018-04-04 20:00] VITALS: BP 133/59
[2018-04-04] MEDS: ATORVASTATIN CALCIUM 40MG TABLET PO SCH (21:05)
[2018-04-04] MEDS: CARVEDILOL 12.5MG TABLET PO SCH (21:05)
[2018-04-04] MEDS: GABAPENTIN 300MG CAPSULE PO SCH (21:05)
[2018-04-05] VITALS: BP 125/63
[2018-04-05 04:00] VITALS: BP 120/52
[2018-04-05] MEDS: HYDRALAZINE HCL 100MG TABLET PO SCH ×3 (06:18→21:00)
[2018-04-05] MEDS: CLONIDINE 0.1MG TABLET PO SCH ×3 (06:18→21:00)
[2018-04-05] MEDS: BLOOD SUGAR DIAGNOSTIC STRIP TEST SCH ×4 (06:18→20:45)
[2018-04-05] MEDS: INSULIN LISPRO 100 UNITS/ML SUBCUT SCH ×4 (06:22→21:16)
[2018-04-05 06:32] LABS: BASOPHILS % 0.7 % (0.0-2.0); EOSINOPHILS % 2.9 % (0.0-5.0); HEMATOCRIT. 29.5 % (36.0-48.0); HEMOGLOBIN. 10.1 g/dL (12.0-16.0); LYMPHOCYTES % 23.2 % (20.0-50.0); MEAN CORPUSCULAR HEMOGLOBIN 32.5 pg (28.0-32.0); MEAN CORPUSCULAR VOLUME 94.5 fL (81.0-99.0); MEAN PLATELET VOLUME 9.2 fl (7.4-10.4); MONOCYTES % 10.6 % (2.0-8.0); NEUTROPHILS % 62.6 % (40.0-76.0); PLATELET 207 x1000/uL (130-400); RED BLOOD CELL COUNT 3.12 mill/uL (4.2-5.4)
[2018-04-05 06:52] LABS: CHLORIDE 96 mEq/L (98-107)
[2018-04-05 06:58] LABS: PHOSPHORUS 4.9 mg/dL (2.5-4.9)
[2018-04-05 06:59] LABS: LDL CHOLESTEROL 66 mg/dL (5-100)
[2018-04-05 07:00] LABS: HDL CHOLESTEROL 43 mg/dL (40-59)
[2018-04-05 08:00] VITALS: BP 121/54
[2018-04-05] MEDS: DOXERCALCIFEROL 0.5MCG CAPSULE PO SCH ×2 (09:00→10:07)
[2018-04-05] MEDS: CARVEDILOL 12.5MG TABLET PO SCH ×2 (09:00→20:58)
[2018-04-05] MEDS: ENOXAPARIN 40MG/0.4ML SYR SUBCUT SCH (10:06)
[2018-04-05] MEDS: SEVELAMER CARBONATE 800 MG TABLET PO SCH ×3 (10:06→17:18)
[2018-04-05] MEDS: GABAPENTIN 300MG CAPSULE PO SCH ×2 (10:07→20:57)
[2018-04-05] MEDS: FOLIC ACID/VITAMIN B COMP W-C TABLET PO SCH (10:07)
[2018-04-05 12:00] VITALS: BP 112/51
[2018-04-05] MEDS ORDERED: VANCOMYCIN 1500MG in DEXTROSE 5% WATER 250ML IV NR (13:00)
[2018-04-05] MEDS ORDERED: VANCOMYCIN 1 G PREMIX 200 ML IV SCH (14:00)
[2018-04-05 16:00] VITALS: BP 123/57
[2018-04-05 17:20] LABS: T4 FREE 1.05 ng/dL (0.76-1.46)
[2018-04-05 20:00] VITALS: BP 145/65
[2018-04-05] MEDS: ATORVASTATIN CALCIUM 40MG TABLET PO SCH (20:57)
[2018-04-05] MEDS: INSULIN GLARGINE UD 100 UNITS/ML SYR SUBCUT SCH (21:16)
[2018-04-06] VITALS: BP 122/64
[2018-04-06 04:00] VITALS: BP 120/52
[2018-04-06] MEDS: CLONIDINE 0.1MG TABLET PO SCH ×3 (06:00→21:14)
[2018-04-06] MEDS: HYDRALAZINE HCL 100MG TABLET PO SCH ×3 (06:00→21:14)
[2018-04-06] MEDS: BLOOD SUGAR DIAGNOSTIC STRIP TEST SCH ×4 (06:04→21:04)
[2018-04-06] MEDS: INSULIN LISPRO 100 UNITS/ML SUBCUT SCH ×4 (06:38→21:09)
[2018-04-06 08:00] VITALS: BP 116/76
[2018-04-06] MEDS: CARVEDILOL 12.5MG TABLET PO SCH ×2 (09:00→21:00)
[2018-04-06] MEDS: SEVELAMER CARBONATE 800 MG TABLET PO SCH ×3 (09:03→18:35)
[2018-04-06] MEDS: FOLIC ACID/VITAMIN B COMP W-C TABLET PO SCH (09:03)
[2018-04-06] MEDS: GABAPENTIN 300MG CAPSULE PO SCH ×2 (09:04→21:08)
[2018-04-06 09:33] LABS: HEMATOCRIT 30.7 % (36.0-48.0); HEMOGLOBIN 10.4 g/dL (12.0-16.0); MEAN CORPUSCULAR HEMOGLOBIN 31.6 pg (28.0-32.0); PLATELET 205 x1000/uL (130-400); RED CELL DISTRIBUTION WIDTH 14.5 % (11.6-14.6)
[2018-04-06] MEDS ORDERED: LEVOFLOXACIN 250MG PREMIX 50 ML IV SCH (10:00)
[2018-04-06] MEDS: INSULIN GLARGINE UD 100 UNITS/ML SYR SUBCUT SCH ×2 (10:26→21:13)
[2018-04-06 12:00] VITALS: BP 134/58
[2018-04-06] MEDS: ENOXAPARIN 40MG/0.4ML SYR SUBCUT SCH (13:35)
[2018-04-06] MEDS ORDERED: VANCOMYCIN 1 G PREMIX 200 ML IV SCH (14:00)
[2018-04-06 16:00] VITALS: BP 108/42
[2018-04-06 20:00] VITALS: BP 113/52
[2018-04-06] MEDS: MORPHINE SULFATE 4 MG/ML CPJ (NOT FOR IM USE) IV PRN (20:56)
[2018-04-06] MEDS ORDERED: EPOETIN ALFA 4000UNITS/ML VIAL SUBCUT SCH (21:00)
[2018-04-06] MEDS: ATORVASTATIN CALCIUM 40MG TABLET PO SCH (21:08)
[2018-04-07] VITALS: BP 120/50
[2018-04-07 04:00] VITALS: BP 110/56
[2018-04-07] MEDS: CLONIDINE 0.1MG TABLET PO SCH ×2 (06:00→12:55)
[2018-04-07] MEDS: HYDRALAZINE HCL 100MG TABLET PO SCH ×2 (06:00→14:00)
[2018-04-07] MEDS: BLOOD SUGAR DIAGNOSTIC STRIP TEST SCH ×2 (06:12→11:40)
[2018-04-07] MEDS: INSULIN LISPRO 100 UNITS/ML SUBCUT SCH ×2 (06:36→11:44)
[2018-04-07 08:00] VITALS: BP 119/54
[2018-04-07] MEDS: SEVELAMER CARBONATE 800 MG TABLET PO SCH ×2 (09:33→11:39)
[2018-04-07] MEDS: ENOXAPARIN 40MG/0.4ML SYR SUBCUT SCH (09:33)
[2018-04-07] MEDS: GABAPENTIN 300MG CAPSULE PO SCH (09:34)
[2018-04-07] MEDS: MORPHINE SULFATE 4 MG/ML CPJ (NOT FOR IM USE) IV PRN (09:34)
[2018-04-07] MEDS: FOLIC ACID/VITAMIN B COMP W-C TABLET PO SCH (09:34)
[2018-04-07] MEDS: CARVEDILOL 12.5MG TABLET PO SCH (09:34)
[2018-04-07] MEDS: INSULIN GLARGINE UD 100 UNITS/ML SYR SUBCUT SCH (09:39)
[2018-04-07] MEDS: DOXERCALCIFEROL 0.5MCG CAPSULE PO SCH ×2 (11:30→11:40)
[2018-04-07 12:00] VITALS: BP 121/77
[2018-04-07 12:26] VITALS: BP 121/77
== END 2018-04-07 15:23 | disposition home or self-care (01) | DRG 532 ==
LOC: ER 21:17 → 8WST 04-04 02:09 → EDBEDREQ 04-04 02:16 → EDBEDREQTM 04-04 02:16 → EDBEDREQSVC 04-04 02:16 → ENRESERV 04-04 03:26
PROVIDERS: ADMIT Internal Medicine; ATTEND Internal Medicine
PROC: 5A1D80Z Performance of Urinary Filtration, Prolonged Intermittent, 6-18 hours Per Day (ICD-10-PCS; 2018-04-04)
PROC: 5A1D70Z Performance of Urinary Filtration, Intermittent, Less than 6 Hours Per Day (ICD-10-PCS; principal; 2018-04-05)
DX: N83.9 Noninflammatory disorder of ovary, fallopian tube and broad ligament, unspecified (principal); E11.22 Type 2 diabetes mellitus with diabetic chronic kidney disease; E11.40 Type 2 diabetes mellitus with diabetic neuropathy, unspecified; E11.319 Type 2 diabetes mellitus with unspecified diabetic retinopathy without macular edema; I12.0 Hypertensive chronic kidney disease with stage 5 chronic kidney disease or end stage renal disease; N18.6 End stage renal disease; Z99.2 Dependence on renal dialysis; D64.9 Anemia, unspecified; E03.9 Hypothyroidism, unspecified; E78.00 Pure hypercholesterolemia, unspecified; I45.81 Long QT syndrome; K59.00 Constipation, unspecified; N25.81 Secondary hyperparathyroidism of renal origin; N83.201 Unspecified ovarian cyst, right side; Z79.4 Long term (current) use of insulin; Z82.49 Family history of ischemic heart disease and other diseases of the circulatory system; Z87.891 Personal history of nicotine dependence; Z90.49 Acquired absence of other specified parts of digestive tract; Z90.710 Acquired absence of both cervix and uterus
CPT/HCPCS: 36415; 71045; 74176; 76770; 76830; 76856; 80048; 80053; 80061; 80202; 81003; 82962; 83605; 83690; 83880; 84100; 84439; 84443; 84484; 85025; 85027; 85610; 87040; 87077; 87086; 87186; 87804; 93005; 96365; 96375; 99285; C1893; G0482; J0696; J1650; J1815; J1885; J1956; J2060; J2270; J2405; J3370; J7030; J7040; J7060

== ENCOUNTER 2018-07-07 09:05 | Inpatient (IN) | payer MEDICAID ==
[~2018-07-07] VITALS: Ht 165.1 cm; Wt 83.9 kg
[~2018-07-07 09:05] MED LIST changes: -CARV12.545 PO; -CLON0.1T PO; -HYDR100T26 PO; -LISI-604 PO; -LOSA100T14 PO; -NIFE60TA64 PO
[2018-07-07] MEDS ORDERED: INSULIN REGULAR (HUMULIN R) 300UNITS/3ML SUBCUT ONE ×2 (11:30→12:15)
[2018-07-07 12:24] LABS: BASOPHILS % 0.5 % (0.0-2.0); EOSINOPHILS % 2.1 % (0.0-5.0); HEMATOCRIT. 34.1 % (36.0-48.0); HEMOGLOBIN. 11.2 g/dL (12.0-16.0); LYMPHOCYTES % 22.4 % (20.0-50.0); MEAN CORPUSCULAR HEMOGLOBIN 30.1 pg (28.0-32.0); MEAN CORPUSCULAR VOLUME 91.3 fL (81.0-99.0); MEAN PLATELET VOLUME 9.8 fl (7.4-10.4); MONOCYTES % 13.1 % (2.0-8.0); NEUTROPHILS % 61.9 % (40.0-76.0); PLATELET 198 x1000/uL (130-400); RED BLOOD CELL COUNT 3.74 mill/uL (4.2-5.4); RED CELL DISTRIBUTION WIDTH 16.9 % (11.6-14.6)
[2018-07-07 12:32] LABS: PARTIAL THROMBOPLASTIN TIME 23.5 sec (23.4-31.0)
[2018-07-07 12:33] LABS: CHLORIDE 98 mEq/L (98-107)
[2018-07-07] MEDS ORDERED: CEFTRIAXONE 1 G PREMIX 50 ML IV ONE (14:30)
[2018-07-07 23:20] VITALS: BP 171/70
[2018-07-08] MEDS ORDERED: LEVE500T78 PO (00:06)
[2018-07-08] MEDS ORDERED: INSU100I24 SQ (00:06)
[2018-07-08] MEDS ORDERED: AMLO10TA80 MT (00:06)
[2018-07-08] MEDS ORDERED: DEXTROSE 50% WATER 50ML SYRINGE IV PRN (00:30)
[2018-07-08] MEDS ORDERED: CLONIDINE 0.1MG TABLET PO PRN (00:30)
[2018-07-08] MEDS: ONDANSETRON HCL 4MG/2ML INJ IV PRN ×2 (00:54→08:51)
[2018-07-08] MEDS: HYDROCODONE/ACETAMINOPHEN 5/325MG TABLET PO PRN ×2 (00:55→08:52)
[2018-07-08 03:03] VITALS: BP 106/58
[2018-07-08 04:00] VITALS: BP 120/53
[2018-07-08] MEDS: BLOOD SUGAR DIAGNOSTIC STRIP TEST SCH ×4 (06:03→21:00)
[2018-07-08] MEDS: INSULIN LISPRO 100 UNITS/ML SUBCUT SCH ×4 (06:11→22:26)
[2018-07-08 07:58] LABS: BASOPHILS % 0.8 % (0.0-2.0); EOSINOPHILS % 4.9 % (0.0-5.0); HEMATOCRIT. 31.3 % (36.0-48.0); HEMOGLOBIN. 10.5 g/dL (12.0-16.0); LYMPHOCYTES % 31.1 % (20.0-50.0); MEAN CORPUSCULAR HEMOGLOBIN 30.6 pg (28.0-32.0); MEAN CORPUSCULAR VOLUME 91.3 fL (81.0-99.0); MEAN PLATELET VOLUME 9.8 fl (7.4-10.4); MONOCYTES % 11.8 % (2.0-8.0); NEUTROPHILS % 51.4 % (40.0-76.0); PLATELET 183 x1000/uL (130-400); RED BLOOD CELL COUNT 3.43 mill/uL (4.2-5.4); RED CELL DISTRIBUTION WIDTH 16.4 % (11.6-14.6)
[2018-07-08 08:00] VITALS: BP 104/44
[2018-07-08] MEDS ORDERED: POTASSIUM CHLORIDE 20MEQ TABLET SR PO SCH (08:00)
[2018-07-08] MEDS: GABAPENTIN 300MG CAPSULE PO SCH ×3 (08:52→21:30)
[2018-07-08] MEDS: AMLODIPINE 10MG TABLET PO SCH (08:53)
[2018-07-08] MEDS: INSULIN GLARGINE UD 100 UNITS/ML SYR SUBCUT SCH ×2 (08:55→22:26)
[2018-07-08] MEDS: CALCITRIOL 0.25MCG CAPSULE PO SCH (09:00)
[2018-07-08] MEDS ORDERED: MEDICATION NOT ON FORMULARY EA (Levetiracetam 1 TAB) MT SCH (09:00)
[2018-07-08] MEDS: LEVETIRACETAM 500MG TABLET PO SCH ×2 (09:00→21:30)
[2018-07-08] MEDS ORDERED: MEDICATION NOT ON FORMULARY EA (Calcitriol 1 CAP) PO SCH (09:00)
[2018-07-08 11:53] VITALS: BP 95/40
[2018-07-08] MEDS: FOLIC ACID/VITAMIN B COMP W-C TABLET PO SCH (12:14)
[2018-07-08] MEDS: HYDROMORPHONE HCL/PF 2MG/ML CPJ IV PRN ×2 (12:14→21:32)
[2018-07-08 16:00] VITALS: BP 111/46
[2018-07-08] MEDS: CEFTRIAXONE 1 G PREMIX 50 ML IV SCH (16:42)
[2018-07-08 19:43] LABS: CLARITY URINE TURBID (CLEAR); COLOR URINE YELLOW (YELLOW); KETONES URINE TRACE (NEGATIVE); LEUKOCYTE ESTERASE URINE 3+ (NEGATIVE); NITRITE URINE NEGATIVE (NEGATIVE); OCCULT BLOOD URINE NEGATIVE (NEGATIVE); PROTEIN URINE 3+ (NEGATIVE); UROBILINOGEN URINE 0.2 E.U./dL (0.2-1.0)
[2018-07-08 20:00] VITALS: BP 132/55
[2018-07-08] MEDS ORDERED: MEDICATION NOT ON FORMULARY EA (Simvastatin 40 MG) PO SCH (21:00)
[2018-07-08] MEDS: ATORVASTATIN CALCIUM 20MG TABLET PO SCH (21:30)
[2018-07-09] VITALS: BP 135/56
[2018-07-09 04:00] VITALS: BP 151/67
[2018-07-09] MEDS: BLOOD SUGAR DIAGNOSTIC STRIP TEST SCH ×4 (05:44→20:58)
[2018-07-09] MEDS: HYDROMORPHONE HCL/PF 2MG/ML CPJ IV PRN ×3 (05:45→17:36)
[2018-07-09] MEDS: GABAPENTIN 300MG CAPSULE PO SCH ×3 (05:47→21:08)
[2018-07-09] MEDS: INSULIN LISPRO 100 UNITS/ML SUBCUT SCH ×4 (07:40→21:18)
[2018-07-09 08:00] VITALS: BP 140/60
[2018-07-09 08:01] LABS: BASOPHILS % 0.7 % (0.0-2.0); EOSINOPHILS % 5.6 % (0.0-5.0); HEMATOCRIT. 35.2 % (36.0-48.0); HEMOGLOBIN. 11.3 g/dL (12.0-16.0); LYMPHOCYTES % 23.8 % (20.0-50.0); MEAN CORPUSCULAR HEMOGLOBIN 29.8 pg (28.0-32.0); MEAN CORPUSCULAR VOLUME 92.9 fL (81.0-99.0); MEAN PLATELET VOLUME 9.9 fl (7.4-10.4); MONOCYTES % 9.7 % (2.0-8.0); NEUTROPHILS % 60.2 % (40.0-76.0); PLATELET 233 x1000/uL (130-400); RED BLOOD CELL COUNT 3.79 mill/uL (4.2-5.4); RED CELL DISTRIBUTION WIDTH 16.1 % (11.6-14.6)
[2018-07-09] MEDS: HYDROCODONE/ACETAMINOPHEN 5/325MG TABLET PO PRN ×2 (08:41→23:01)
[2018-07-09] MEDS: CALCITRIOL 0.25MCG CAPSULE PO SCH (08:41)
[2018-07-09] MEDS: LEVETIRACETAM 500MG TABLET PO SCH ×2 (08:41→21:07)
[2018-07-09] MEDS: AMLODIPINE 10MG TABLET PO SCH (08:41)
[2018-07-09] MEDS: FOLIC ACID/VITAMIN B COMP W-C TABLET PO SCH (08:43)
[2018-07-09] MEDS: INSULIN GLARGINE UD 100 UNITS/ML SYR SUBCUT SCH ×2 (09:31→21:18)
[2018-07-09 12:00] VITALS: BP 131/63
[2018-07-09] MEDS: MEGESTROL ACETATE 400 MG/10 ML UDC PO SCH (14:33)
[2018-07-09 16:00] VITALS: BP 151/58
[2018-07-09] MEDS: CEFTRIAXONE 1 G PREMIX 50 ML IV SCH (17:34)
[2018-07-09 20:00] VITALS: BP 150/68
[2018-07-09] MEDS ORDERED: EPOETIN ALFA 4000UNITS/ML VIAL SUBCUT SCH (21:00)
[2018-07-09] MEDS: ATORVASTATIN CALCIUM 20MG TABLET PO SCH (21:08)
[2018-07-10] VITALS: BP 155/70
[2018-07-10 04:00] VITALS: BP 130/51
[2018-07-10] MEDS: HYDROMORPHONE HCL/PF 2MG/ML CPJ IV PRN (04:15)
[2018-07-10] MEDS: BLOOD SUGAR DIAGNOSTIC STRIP TEST SCH ×4 (06:01→21:47)
[2018-07-10] MEDS: GABAPENTIN 300MG CAPSULE PO SCH ×3 (06:09→21:43)
[2018-07-10] MEDS: INSULIN LISPRO 100 UNITS/ML SUBCUT SCH ×4 (06:11→21:54)
[2018-07-10 08:00] VITALS: BP 105/43
[2018-07-10] MEDS: AMLODIPINE 10MG TABLET PO SCH (09:00)
[2018-07-10] MEDS: MEGESTROL ACETATE 400 MG/10 ML UDC PO SCH (09:39)
[2018-07-10] MEDS: LEVETIRACETAM 500MG TABLET PO SCH ×2 (09:39→21:43)
[2018-07-10] MEDS: CALCITRIOL 0.25MCG CAPSULE PO SCH (09:39)
[2018-07-10] MEDS: FOLIC ACID/VITAMIN B COMP W-C TABLET PO SCH (09:39)
[2018-07-10] MEDS: ONDANSETRON HCL 4MG/2ML INJ IV PRN (09:48)
[2018-07-10] MEDS: INSULIN GLARGINE UD 100 UNITS/ML SYR SUBCUT SCH ×2 (09:48→21:47)
[2018-07-10 12:00] VITALS: BP 131/61
[2018-07-10 13:50] LABS: BG BASE EXCESS 0.3 mmol/L (-2.0-2.0); BG CARBOXYHEMOGLOBIN 0.8 % (0.5-1.5); BG DEOXYHEMOGLOBIN 9.1 % (0.0-5.0); BG FRACTION INSPIRED OXYGEN 21; BG HCO3 ACT 26.4 mmol/L (22.0-26.0); BG METHEMOGLOBIN 0.2 % (0.0-1.5); BG OXYGEN SATURATION 90.8 % (92.0-98.5); BG OXYHEMOGLOBIN 89.9 % (94.0-97.0); BG PCO2 48.4 mmHg (35.0-45.0); BG PH 7.354 (7.350-7.450); BG PO2 60.5 mmHg (75.0-100.0); BG SAMPLE SITE LEFT RADIAL; BG TOTAL HEMOGLOBIN 12.4 g/dL (12.0-18.0); BG VENT MODE ROOM AIR
[2018-07-10] MEDS: CEFTRIAXONE 1 G PREMIX 50 ML IV SCH (15:51)
[2018-07-10 16:00] VITALS: BP 110/47
[2018-07-10 20:00] VITALS: BP 118/53
[2018-07-10] MEDS: ATORVASTATIN CALCIUM 20MG TABLET PO SCH (21:43)
[2018-07-11] VITALS (7 sets, daily range): BP systolic 118–155; BP diastolic 54–70
[2018-07-11] MEDS: BLOOD SUGAR DIAGNOSTIC STRIP TEST SCH ×3 (06:20→17:10)
[2018-07-11] MEDS: HYDROCODONE/ACETAMINOPHEN 5/325MG TABLET PO PRN (06:20)
[2018-07-11] MEDS: GABAPENTIN 300MG CAPSULE PO SCH ×2 (06:20→13:24)
[2018-07-11] MEDS: INSULIN LISPRO 100 UNITS/ML SUBCUT SCH ×3 (06:30→18:41)
[2018-07-11] MEDS: LEVETIRACETAM 500MG TABLET PO SCH (09:13)
[2018-07-11] MEDS: FOLIC ACID/VITAMIN B COMP W-C TABLET PO SCH (09:13)
[2018-07-11] MEDS: CALCITRIOL 0.25MCG CAPSULE PO SCH (09:14)
[2018-07-11] MEDS: MEGESTROL ACETATE 400 MG/10 ML UDC PO SCH (09:14)
[2018-07-11] MEDS: INSULIN GLARGINE UD 100 UNITS/ML SYR SUBCUT SCH (09:16)
[2018-07-11 12:38] LABS: BASOPHILS % 0.6 % (0.0-2.0); EOSINOPHILS % 4.7 % (0.0-5.0); HEMATOCRIT. 29.5 % (36.0-48.0); LYMPHOCYTES % 21.1 % (20.0-50.0); MEAN CORPUSCULAR HEMOGLOBIN 30.4 pg (28.0-32.0); MEAN CORPUSCULAR VOLUME 89.4 fL (81.0-99.0); MEAN PLATELET VOLUME 9.9 fl (7.4-10.4); MONOCYTES % 11.9 % (2.0-8.0); NEUTROPHILS % 61.7 % (40.0-76.0); PLATELET 215 x1000/uL (130-400); RED CELL DISTRIBUTION WIDTH 16.5 % (11.6-14.6)
[2018-07-11] MEDS: AMLODIPINE 10MG TABLET PO SCH (16:00)
[2018-07-11] MEDS: CEFTRIAXONE 1 G PREMIX 50 ML IV SCH (16:00)
[2018-07-11 19:10] LABS: T4 FREE 0.95 ng/dL (0.76-1.46)
[2018-07-11 19:12] LABS: FOLIC ACID (FOLATE) SERUM 12.4 ng/mL (>5.38)
== END 2018-07-11 20:30 | disposition home or self-care (01) | DRG 720 ==
LOC: ER 09:15 → 8WST 14:44 → EDBEDREQTM 14:51 → EDBEDREQ 14:51 → SUPCPDRO 17:56 → ENRESERV 21:52
PROVIDERS: ADMIT Internal Medicine; ATTEND Internal Medicine
PROC: 5A1D70Z Performance of Urinary Filtration, Intermittent, Less than 6 Hours Per Day (ICD-10-PCS; principal; 2018-07-08)
PROC: 5A1D70Z Performance of Urinary Filtration, Intermittent, Less than 6 Hours Per Day (ICD-10-PCS; 2018-07-10)
DX: A41.9 Sepsis, unspecified organism (principal); G93.41 Metabolic encephalopathy; E46 Unspecified protein-calorie malnutrition; E11.22 Type 2 diabetes mellitus with diabetic chronic kidney disease; E11.40 Type 2 diabetes mellitus with diabetic neuropathy, unspecified; E11.319 Type 2 diabetes mellitus with unspecified diabetic retinopathy without macular edema; E11.65 Type 2 diabetes mellitus with hyperglycemia; N39.0 Urinary tract infection, site not specified; N18.6 End stage renal disease; Z99.2 Dependence on renal dialysis; E87.6 Hypokalemia; E03.9 Hypothyroidism, unspecified; I12.0 Hypertensive chronic kidney disease with stage 5 chronic kidney disease or end stage renal disease; D63.1 Anemia in chronic kidney disease; B96.20 Unspecified Escherichia coli [E. coli] as the cause of diseases classified elsewhere; E78.00 Pure hypercholesterolemia, unspecified; E78.5 Hyperlipidemia, unspecified; E87.1 Hypo-osmolality and hyponatremia; B34.9 Viral infection, unspecified; I45.81 Long QT syndrome; G40.909 Epilepsy, unspecified, not intractable, without status epilepticus; Z82.49 Family history of ischemic heart disease and other diseases of the circulatory system; Z84.1 Family history of disorders of kidney and ureter; Z87.01 Personal history of pneumonia (recurrent); Z87.891 Personal history of nicotine dependence; Z90.710 Acquired absence of both cervix and uterus; Z68.30 Body mass index [BMI] 30.0-30.9, adult; Z91.048 Other nonmedicinal substance allergy status; Z87.442 Personal history of urinary calculi; Z79.899 Other long term (current) drug therapy
CPT/HCPCS: 36415; 36600; 71045; 76770; 80048; 82140; 82375; 82607; 82746; 82805; 82962; 83036; 83605; 83880; 84439; 84443; 84481; 84484; 87077; 87186; 93005; 93970; 96365; 96372; 96375; 97112; 97162; 97166; 99285; J0696; J0885; J1170; J1815; J2405; J7040; J7050

== ENCOUNTER 2018-09-07 18:58 | Inpatient (IN) | payer MEDICAID ==
[~2018-09-07] VITALS: Ht 154.9 cm; Wt 80.9 kg
[~2018-09-07 18:58] MED LIST changes: +AMLO10TA80 MT; -ESTR0.3T3 PO; -FERR-43 PO; -FURO40TA5 PO; +INSU100I24 SQ; -INSULIN LISPRO; +LEVE500T78 PO; -LEVO25TA7 PO; -LEVVL SQ; -OMEP20TA2 PO; -[UNRECOGNIZED DRUG - OTHER]
[2018-09-07] MEDS ORDERED: SODIUM CHLORIDE 0.9% 1,000 ML IV ONE (21:29)
[2018-09-07] MEDS ORDERED: METOCLOPRAMIDE HCL 10MG/2ML VIAL IV ONE (21:30)
[2018-09-07] MEDS ORDERED: DIPHENHYDRAMINE 50MG/ML VIAL IV ONE (21:30)
[2018-09-08] MEDS ORDERED: HYDROMORPHONE HCL/PF 2MG/ML CPJ IV ONE
[2018-09-08 00:05] LABS: BASOPHILS % 0.8 % (0.0-2.0); EOSINOPHILS % 1.8 % (0.0-5.0); HEMATOCRIT. 35.7 % (36.0-48.0); HEMOGLOBIN. 11.8 g/dL (12.0-16.0); MEAN CORPUSCULAR HEMOGLOBIN 29.4 pg (28.0-32.0); MEAN CORPUSCULAR VOLUME 88.6 fL (81.0-99.0); MEAN PLATELET VOLUME 9.3 fl (7.4-10.4); MONOCYTES % 10.6 % (2.0-8.0); NEUTROPHILS % 65.8 % (40.0-76.0); PLATELET 228 x1000/uL (130-400); RED BLOOD CELL COUNT 4.02 mill/uL (4.2-5.4); RED CELL DISTRIBUTION WIDTH 15.8 % (11.6-14.6)
[2018-09-08 00:08] LABS: CHLORIDE 99 mEq/L (98-107)
[2018-09-08] MEDS ORDERED: FENTANYL CITRATE/PF 50MCG/ML 2ML VIAL IV ONE (03:00)
[2018-09-08] MEDS ORDERED: HYDRALAZINE 20MG/ML VIAL IV NR (03:00)
[2018-09-08 08:00] VITALS: BP 182/70
[2018-09-08] MEDS ORDERED: DEXTROSE 50% WATER 50ML SYRINGE IV PRN (08:00)
[2018-09-08] MEDS ORDERED: ACETAMINOPHEN 325MG TABLET PO PRN (08:00)
[2018-09-08] MEDS ORDERED: DOCUSATE SODIUM 100MG CAPSULE PO PRN (08:00)
[2018-09-08] MEDS ORDERED: ACETAMINOPHEN 650MG/20.3ML UDC GT PRN (08:00)
[2018-09-08] MEDS ORDERED: HYDROCODONE/ACETAMINOPHEN 5/325MG TABLET PO PRN (08:00)
[2018-09-08] MEDS ORDERED: MAGNESIUM/ALUMINUM HYDROXIDE/SIMETHICONE 30ML UDC PO PRN (08:00)
[2018-09-08] MEDS ORDERED: IPRATROPIUM/ALBUTEROL 0.5-3(2.5)MG/3ML NEB INH PRN (08:00)
[2018-09-08] MEDS ORDERED: ACETAMINOPHEN 650MG SUPP PR PRN (08:00)
[2018-09-08] MEDS ORDERED: ONDANSETRON HCL 4MG/2ML INJ IV PRN ×2 (08:00→13:30)
[2018-09-08] MEDS ORDERED: GUAIFENESIN 200MG/10ML SUGAR FREE UDC PO PRN (08:00)
[2018-09-08] MEDS ORDERED: NA PHOS,M-B/NA PHOS,DI-BA ENEMA 118ML PR PRN (08:00)
[2018-09-08 08:15] VITALS: BP 182/70
[2018-09-08] MEDS: BLOOD SUGAR DIAGNOSTIC STRIP TEST SCH ×4 (08:53→20:41)
[2018-09-08] MEDS ORDERED: MORPHINE SULFATE 4 MG/ML CPJ (NOT FOR IM USE) IV SCH (09:15)
[2018-09-08] MEDS ORDERED: MORPHINE SULFATE 4 MG/ML CPJ (NOT FOR IM USE) IV PRN (09:44)
[2018-09-08] MEDS: OXYCODONE HCL/ACETAMINOPHEN 5/325MG TABLET PO PRN (10:28)
[2018-09-08] MEDS: MORPHINE SULFATE 15MG TABLET SR PO SCH ×2 (10:30→20:40)
[2018-09-08 12:09] VITALS: BP 187/67
[2018-09-08] MEDS: CLONIDINE 0.1MG TABLET PO PRN (13:48)
[2018-09-08] MEDS: SODIUM CHLORIDE 0.9% INJ 3ML FLUSH IVF SCH ×2 (13:49→21:08)
[2018-09-08] MEDS ORDERED: GABAPENTIN 300MG CAPSULE PO SCH ×2 (14:00→21:00)
[2018-09-08] MEDS: INSULIN LISPRO 100 UNITS/ML SUBCUT SCH ×3 (14:19→21:07)
[2018-09-08 16:00] VITALS: BP 155/53
[2018-09-08] MEDS ORDERED: LABETALOL 5MG/ML SYR 20 MG/4 ML SYRINGE IV NR (16:00)
[2018-09-08 16:39] VITALS: BP 155/53
[2018-09-08] MEDS: SEVELAMER CARBONATE 800 MG TABLET PO SCH (17:23)
[2018-09-08] MEDS: POLYETHYLENE GLYCOL 3350 (17GM) 1 DOSE PACK PO SCH (17:23)
[2018-09-08] MEDS: AMLODIPINE 10MG TABLET PO SCH (17:24)
[2018-09-08 17:30] LABS: FOLIC ACID (FOLATE) SERUM 6.4 ng/mL (>5.38)
[2018-09-08 20:00] VITALS: BP 150/56
[2018-09-08] MEDS: ATORVASTATIN CALCIUM 40MG TABLET PO SCH (20:40)
[2018-09-08] MEDS: LEVETIRACETAM 500MG TABLET PO SCH (20:40)
[2018-09-08] MEDS: LABETALOL HCL 100MG TABLET PO SCH (20:41)
[2018-09-08] MEDS ORDERED: INSULIN GLARGINE UD 100 UNITS/ML SYR SUBCUT SCH (22:00)
[2018-09-09] VITALS: BP 132/50
[2018-09-09 04:00] VITALS: BP 131/58
[2018-09-09] MEDS: SODIUM CHLORIDE 0.9% INJ 3ML FLUSH IVF SCH ×3 (06:18→21:10)
[2018-09-09] MEDS: BLOOD SUGAR DIAGNOSTIC STRIP TEST SCH ×4 (06:18→21:10)
[2018-09-09] MEDS: DIPHENHYDRAMINE 50MG/ML VIAL IV PRN ×2 (06:56→13:06)
[2018-09-09 07:19] LABS: BASOPHILS % 0.6 % (0.0-2.0); EOSINOPHILS % 2.4 % (0.0-5.0); HEMATOCRIT. 33.7 % (36.0-48.0); HEMOGLOBIN. 11.1 g/dL (12.0-16.0); LYMPHOCYTES % 27.7 % (20.0-50.0); MEAN CORPUSCULAR HEMOGLOBIN 29.1 pg (28.0-32.0); MEAN CORPUSCULAR VOLUME 88.7 fL (81.0-99.0); MEAN PLATELET VOLUME 9.4 fl (7.4-10.4); MONOCYTES % 12.2 % (2.0-8.0); NEUTROPHILS % 57.1 % (40.0-76.0); PLATELET 210 x1000/uL (130-400); RED CELL DISTRIBUTION WIDTH 15.3 % (11.6-14.6)
[2018-09-09] MEDS: LABETALOL HCL 100MG TABLET PO SCH ×2 (08:42→21:10)
[2018-09-09] MEDS: LEVETIRACETAM 500MG TABLET PO SCH ×2 (08:43→21:10)
[2018-09-09] MEDS: AMLODIPINE 10MG TABLET PO SCH (08:43)
[2018-09-09] MEDS: SEVELAMER CARBONATE 800 MG TABLET PO SCH ×3 (08:43→17:59)
[2018-09-09] MEDS: MORPHINE SULFATE 15MG TABLET SR PO SCH ×2 (08:44→21:09)
[2018-09-09 08:45] LABS: CHLORIDE 102 mEq/L (98-107)
[2018-09-09] MEDS: INSULIN LISPRO 100 UNITS/ML SUBCUT SCH ×4 (08:52→21:40)
[2018-09-09 08:53] LABS: PHOSPHORUS 4.6 mg/dL (2.5-4.9)
[2018-09-09 08:54] LABS: LDL CHOLESTEROL 106 mg/dL (5-100)
[2018-09-09 08:55] LABS: HDL CHOLESTEROL 44 mg/dL (40-59)
[2018-09-09] MEDS: POLYETHYLENE GLYCOL 3350 (17GM) 1 DOSE PACK PO SCH (09:49)
[2018-09-09] MEDS: FOLIC ACID/VITAMIN B COMP W-C TABLET PO SCH (09:50)
[2018-09-09 12:00] VITALS: BP 114/66
[2018-09-09] MEDS ORDERED: POTASSIUM CHLORIDE 10MEQ TABLET SR PO NR (13:30)
[2018-09-09] MEDS: OXYCODONE HCL/ACETAMINOPHEN 5/325MG TABLET PO PRN (14:16)
[2018-09-09 14:57] LABS: T4 FREE 1.5 ng/dL (0.76-1.46)
[2018-09-09 16:00] VITALS: BP 118/54
[2018-09-09] MEDS ORDERED: HYDROMORPHONE HCL 2MG TABLET PO PRN (19:45)
[2018-09-09 20:23] VITALS: BP 111/47
[2018-09-09] MEDS ORDERED: GABAPENTIN 300MG CAPSULE PO SCH (21:00)
[2018-09-09] MEDS: ATORVASTATIN CALCIUM 40MG TABLET PO SCH (21:10)
[2018-09-09] MEDS: GABAPENTIN 100MG CAPSULE PO SCH (21:39)
[2018-09-09] MEDS: INSULIN GLARGINE UD 100 UNITS/ML SYR SUBCUT SCH (21:58)
[2018-09-10] VITALS (7 sets, daily range): BP systolic 110–182; BP diastolic 48–77
[2018-09-10] MEDS: SODIUM CHLORIDE 0.9% INJ 3ML FLUSH IVF SCH ×3 (06:21→20:56)
[2018-09-10] MEDS: BLOOD SUGAR DIAGNOSTIC STRIP TEST SCH ×4 (06:21→21:54)
[2018-09-10 06:59] LABS: BASOPHILS % 0.6 % (0.0-2.0); EOSINOPHILS % 2.5 % (0.0-5.0); HEMATOCRIT. 35.5 % (36.0-48.0); HEMOGLOBIN. 11.4 g/dL (12.0-16.0); LYMPHOCYTES % 18.6 % (20.0-50.0); MEAN CORPUSCULAR HEMOGLOBIN 29.1 pg (28.0-32.0); MEAN CORPUSCULAR VOLUME 90.9 fL (81.0-99.0); MEAN PLATELET VOLUME 9.3 fl (7.4-10.4); MONOCYTES % 10.8 % (2.0-8.0); NEUTROPHILS % 67.5 % (40.0-76.0); PLATELET 233 x1000/uL (130-400); RED BLOOD CELL COUNT 3.91 mill/uL (4.2-5.4); RED CELL DISTRIBUTION WIDTH 15.7 % (11.6-14.6)
[2018-09-10] MEDS: SEVELAMER CARBONATE 800 MG TABLET PO SCH ×3 (08:29→17:38)
[2018-09-10] MEDS: INSULIN LISPRO 100 UNITS/ML SUBCUT SCH ×4 (08:35→22:27)
[2018-09-10] MEDS: POLYETHYLENE GLYCOL 3350 (17GM) 1 DOSE PACK PO SCH (09:00)
[2018-09-10] MEDS: MORPHINE SULFATE 15MG TABLET SR PO SCH (09:00)
[2018-09-10] MEDS: GABAPENTIN 100MG CAPSULE PO SCH ×3 (10:00→20:56)
[2018-09-10] MEDS: LABETALOL HCL 100MG TABLET PO SCH ×2 (10:00→20:55)
[2018-09-10] MEDS: LEVETIRACETAM 500MG TABLET PO SCH ×2 (10:01→20:55)
[2018-09-10] MEDS: AMLODIPINE 10MG TABLET PO SCH (10:01)
[2018-09-10] MEDS: FOLIC ACID/VITAMIN B COMP W-C TABLET PO SCH (10:01)
[2018-09-10] MEDS ORDERED: NALOXONE HCL 0.4 MG/ML 1ML VIAL IV NR (10:15)
[2018-09-10] MEDS: ATORVASTATIN CALCIUM 40MG TABLET PO SCH (20:55)
[2018-09-10] MEDS: INSULIN GLARGINE UD 100 UNITS/ML SYR SUBCUT SCH (22:27)
[2018-09-11] MEDS: CLONIDINE 0.1MG TABLET PO PRN ×2 (00:08→06:23)
[2018-09-11 04:02] VITALS: BP 175/72
[2018-09-11] MEDS: SODIUM CHLORIDE 0.9% INJ 3ML FLUSH IVF SCH ×3 (06:23→21:49)
[2018-09-11] MEDS: BLOOD SUGAR DIAGNOSTIC STRIP TEST SCH ×4 (06:26→21:57)
[2018-09-11 08:21] LABS: BASOPHILS % 0.2 % (0.0-2.0); EOSINOPHILS % 0.5 % (0.0-5.0); HEMATOCRIT. 36.4 % (36.0-48.0); HEMOGLOBIN. 11.7 g/dL (12.0-16.0); LYMPHOCYTES % 11.3 % (20.0-50.0); MEAN CORPUSCULAR HEMOGLOBIN 29.3 pg (28.0-32.0); MEAN CORPUSCULAR VOLUME 90.6 fL (81.0-99.0); MEAN PLATELET VOLUME 9.5 fl (7.4-10.4); PLATELET 218 x1000/uL (130-400); RED BLOOD CELL COUNT 4.01 mill/uL (4.2-5.4); RED CELL DISTRIBUTION WIDTH 15.1 % (11.6-14.6)
[2018-09-11] MEDS: POLYETHYLENE GLYCOL 3350 (17GM) 1 DOSE PACK PO SCH (08:22)
[2018-09-11] MEDS: LABETALOL HCL 100MG TABLET PO SCH ×2 (08:23→21:46)
[2018-09-11] MEDS: AMLODIPINE 10MG TABLET PO SCH (08:23)
[2018-09-11] MEDS: LEVETIRACETAM 500MG TABLET PO SCH ×2 (08:23→21:46)
[2018-09-11] MEDS: GABAPENTIN 100MG CAPSULE PO SCH ×3 (08:23→21:00)
[2018-09-11] MEDS: FOLIC ACID/VITAMIN B COMP W-C TABLET PO SCH (08:23)
[2018-09-11] MEDS: SEVELAMER CARBONATE 800 MG TABLET PO SCH ×3 (08:23→18:25)
[2018-09-11] MEDS: INSULIN LISPRO 100 UNITS/ML SUBCUT SCH ×4 (08:34→22:08)
[2018-09-11 12:16] VITALS: BP 164/104
[2018-09-11] MEDS: LOSARTAN POTASSIUM 50 MG TABLET PO SCH (14:03)
[2018-09-11] MEDS: CLONIDINE 0.1MG TABLET PO SCH ×2 (14:04→21:46)
[2018-09-11 18:35] VITALS: BP 140/86
[2018-09-11 20:00] VITALS: BP 171/65
[2018-09-11] MEDS: ATORVASTATIN CALCIUM 40MG TABLET PO SCH (21:45)
[2018-09-11] MEDS ORDERED: LAMOTRIGINE 25MG TABLET PO SCH (22:00)
[2018-09-11] MEDS: INSULIN GLARGINE UD 100 UNITS/ML SYR SUBCUT SCH (22:08)
[2018-09-12 00:09] VITALS: BP 100/45
[2018-09-12 04:00] VITALS: BP 115/55
[2018-09-12] MEDS: CLONIDINE 0.1MG TABLET PO SCH ×3 (05:06→21:22)
[2018-09-12] MEDS: SODIUM CHLORIDE 0.9% INJ 3ML FLUSH IVF SCH ×3 (06:36→21:43)
[2018-09-12] MEDS: BLOOD SUGAR DIAGNOSTIC STRIP TEST SCH ×4 (06:38→21:21)
[2018-09-12 06:44] LABS: BASOPHILS % 0.3 % (0.0-2.0); EOSINOPHILS % 1.4 % (0.0-5.0); HEMATOCRIT. 33.5 % (36.0-48.0); HEMOGLOBIN. 10.9 g/dL (12.0-16.0); MEAN CORPUSCULAR HEMOGLOBIN 29.3 pg (28.0-32.0); MEAN CORPUSCULAR VOLUME 90.3 fL (81.0-99.0); MEAN PLATELET VOLUME 9.5 fl (7.4-10.4); MONOCYTES % 11.1 % (2.0-8.0); NEUTROPHILS % 76.2 % (40.0-76.0); PLATELET 210 x1000/uL (130-400); RED BLOOD CELL COUNT 3.71 mill/uL (4.2-5.4); RED CELL DISTRIBUTION WIDTH 14.8 % (11.6-14.6)
[2018-09-12] MEDS: GABAPENTIN 100MG CAPSULE PO SCH ×3 (08:58→21:41)
[2018-09-12] MEDS: SEVELAMER CARBONATE 800 MG TABLET PO SCH ×3 (08:58→18:02)
[2018-09-12] MEDS: FOLIC ACID/VITAMIN B COMP W-C TABLET PO SCH (08:58)
[2018-09-12] MEDS: LOSARTAN POTASSIUM 50 MG TABLET PO SCH (08:58)
[2018-09-12] MEDS: LEVETIRACETAM 500MG TABLET PO SCH ×2 (08:58→21:41)
[2018-09-12] MEDS: POLYETHYLENE GLYCOL 3350 (17GM) 1 DOSE PACK PO SCH (08:58)
[2018-09-12] MEDS: AMLODIPINE 10MG TABLET PO SCH (08:59)
[2018-09-12] MEDS: LABETALOL HCL 100MG TABLET PO SCH ×2 (08:59→21:00)
[2018-09-12] MEDS: INSULIN LISPRO 100 UNITS/ML SUBCUT SCH ×4 (09:01→21:42)
[2018-09-12 11:10] VITALS: BP 109/46
[2018-09-12 15:40] VITALS: BP 110/48
[2018-09-12 20:00] VITALS: BP 102/41
[2018-09-12] MEDS: ATORVASTATIN CALCIUM 40MG TABLET PO SCH (21:41)
[2018-09-12] MEDS: INSULIN GLARGINE UD 100 UNITS/ML SYR SUBCUT SCH (21:45)
[2018-09-13] VITALS: BP 137/55
[2018-09-13 04:00] VITALS: BP 146/57
[2018-09-13] MEDS: CLONIDINE 0.1MG TABLET PO SCH ×3 (05:13→23:24)
[2018-09-13] MEDS: SODIUM CHLORIDE 0.9% INJ 3ML FLUSH IVF SCH ×3 (05:14→22:00)
[2018-09-13] MEDS: BLOOD SUGAR DIAGNOSTIC STRIP TEST SCH ×4 (06:35→21:00)
[2018-09-13] MEDS: INSULIN LISPRO 100 UNITS/ML SUBCUT SCH ×4 (07:50→23:30)
[2018-09-13] MEDS: SEVELAMER CARBONATE 800 MG TABLET PO SCH ×3 (07:50→19:09)
[2018-09-13 07:54] LABS: BASOPHILS % 0.9 % (0.0-2.0); HEMATOCRIT. 31.4 % (36.0-48.0); HEMOGLOBIN. 10.2 g/dL (12.0-16.0); LYMPHOCYTES % 15.6 % (20.0-50.0); MEAN CORPUSCULAR HEMOGLOBIN 29.3 pg (28.0-32.0); MEAN CORPUSCULAR VOLUME 90.4 fL (81.0-99.0); MEAN PLATELET VOLUME 9.7 fl (7.4-10.4); MONOCYTES % 11.9 % (2.0-8.0); NEUTROPHILS % 66.6 % (40.0-76.0); PLATELET 180 x1000/uL (130-400); RED BLOOD CELL COUNT 3.47 mill/uL (4.2-5.4); RED CELL DISTRIBUTION WIDTH 15.4 % (11.6-14.6)
[2018-09-13 08:00] VITALS: BP 121/42
[2018-09-13] MEDS: LABETALOL HCL 100MG TABLET PO SCH ×2 (09:00→23:23)
[2018-09-13] MEDS: POLYETHYLENE GLYCOL 3350 (17GM) 1 DOSE PACK PO SCH (09:00)
[2018-09-13] MEDS: LEVETIRACETAM 500MG TABLET PO SCH ×3 (09:00→23:22)
[2018-09-13] MEDS: AMLODIPINE 10MG TABLET PO SCH (11:44)
[2018-09-13] MEDS: GABAPENTIN 100MG CAPSULE PO SCH ×3 (11:52→23:28)
[2018-09-13] MEDS: LOSARTAN POTASSIUM 50 MG TABLET PO SCH (11:55)
[2018-09-13 12:30] VITALS: BP 119/43
[2018-09-13 17:14] VITALS: BP 105/53
[2018-09-13] MEDS: FOLIC ACID/VITAMIN B COMP W-C TABLET PO SCH (19:09)
[2018-09-13 20:00] VITALS: BP 167/72
[2018-09-13] MEDS ORDERED: LAMOTRIGINE 25MG TABLET PO SCH (21:00)
[2018-09-13] MEDS: ATORVASTATIN CALCIUM 40MG TABLET PO SCH (23:22)
[2018-09-13] MEDS: LACTULOSE 20G/30ML UDC PO SCH (23:24)
[2018-09-13] MEDS: INSULIN GLARGINE UD 100 UNITS/ML SYR SUBCUT SCH (23:32)
[2018-09-14] VITALS (8 sets, daily range): BP systolic 108–179; BP diastolic 42–86
[2018-09-14] MEDS: SODIUM CHLORIDE 0.9% INJ 3ML FLUSH IVF SCH ×3 (06:14→23:53)
[2018-09-14] MEDS: LACTULOSE 20G/30ML UDC PO SCH ×3 (06:53→23:51)
[2018-09-14] MEDS: CLONIDINE 0.1MG TABLET PO SCH ×3 (06:53→23:53)
[2018-09-14 07:33] LABS: BASOPHILS % 0.6 % (0.0-2.0); EOSINOPHILS % 4.7 % (0.0-5.0); HEMATOCRIT. 32.7 % (36.0-48.0); HEMOGLOBIN. 10.6 g/dL (12.0-16.0); MEAN CORPUSCULAR VOLUME 89.9 fL (81.0-99.0); MEAN PLATELET VOLUME 9.8 fl (7.4-10.4); MONOCYTES % 10.2 % (2.0-8.0); NEUTROPHILS % 67.5 % (40.0-76.0); PLATELET 212 x1000/uL (130-400); RED BLOOD CELL COUNT 3.64 mill/uL (4.2-5.4); RED CELL DISTRIBUTION WIDTH 14.9 % (11.6-14.6)
[2018-09-14] MEDS: INSULIN LISPRO 100 UNITS/ML SUBCUT SCH ×4 (07:50→23:55)
[2018-09-14] MEDS: BLOOD SUGAR DIAGNOSTIC STRIP TEST SCH ×4 (08:29→21:48)
[2018-09-14] MEDS: SEVELAMER CARBONATE 800 MG TABLET PO SCH ×3 (08:49→19:09)
[2018-09-14] MEDS: POLYETHYLENE GLYCOL 3350 (17GM) 1 DOSE PACK PO SCH (09:00)
[2018-09-14] MEDS: LABETALOL HCL 100MG TABLET PO SCH ×2 (09:00→23:52)
[2018-09-14] MEDS: AMLODIPINE 10MG TABLET PO SCH (10:22)
[2018-09-14] MEDS: LEVETIRACETAM 500MG TABLET PO SCH ×2 (10:23→23:53)
[2018-09-14] MEDS: FOLIC ACID/VITAMIN B COMP W-C TABLET PO SCH (10:23)
[2018-09-14] MEDS: GABAPENTIN 100MG CAPSULE PO SCH ×3 (10:23→23:52)
[2018-09-14] MEDS: LOSARTAN POTASSIUM 50 MG TABLET PO SCH (10:23)
[2018-09-14] MEDS: ATORVASTATIN CALCIUM 40MG TABLET PO SCH (23:52)
[2018-09-14] MEDS: INSULIN GLARGINE UD 100 UNITS/ML SYR SUBCUT SCH (23:55)
[2018-09-15] VITALS: BP 128/61
[2018-09-15 04:00] VITALS: BP 137/50
[2018-09-15] MEDS: SODIUM CHLORIDE 0.9% INJ 3ML FLUSH IVF SCH ×2 (05:32→13:46)
[2018-09-15] MEDS: CLONIDINE 0.1MG TABLET PO SCH ×2 (05:32→13:46)
[2018-09-15] MEDS: LACTULOSE 20G/30ML UDC PO SCH ×3 (05:32→13:57)
[2018-09-15] MEDS: BLOOD SUGAR DIAGNOSTIC STRIP TEST SCH ×2 (06:15→12:53)
[2018-09-15 08:00] VITALS: BP 110/48
[2018-09-15] MEDS: POLYETHYLENE GLYCOL 3350 (17GM) 1 DOSE PACK PO SCH ×2 (08:56→09:00)
[2018-09-15] MEDS: FOLIC ACID/VITAMIN B COMP W-C TABLET PO SCH (08:56)
[2018-09-15] MEDS: GABAPENTIN 100MG CAPSULE PO SCH ×2 (08:56→14:00)
[2018-09-15] MEDS: SEVELAMER CARBONATE 800 MG TABLET PO SCH ×2 (08:56→13:46)
[2018-09-15] MEDS: LEVETIRACETAM 500MG TABLET PO SCH (08:57)
[2018-09-15] MEDS: LOSARTAN POTASSIUM 50 MG TABLET PO SCH (08:57)
[2018-09-15] MEDS: LABETALOL HCL 100MG TABLET PO SCH (08:57)
[2018-09-15] MEDS: AMLODIPINE 10MG TABLET PO SCH (08:57)
[2018-09-15] MEDS: INSULIN LISPRO 100 UNITS/ML SUBCUT SCH ×2 (09:05→12:50)
[2018-09-15 09:33] LABS: BASOPHILS % 0.8 % (0.0-2.0); EOSINOPHILS % 4.3 % (0.0-5.0); HEMATOCRIT. 31.5 % (36.0-48.0); HEMOGLOBIN. 10.2 g/dL (12.0-16.0); LYMPHOCYTES % 15.7 % (20.0-50.0); MEAN CORPUSCULAR HEMOGLOBIN 28.8 pg (28.0-32.0); MEAN CORPUSCULAR VOLUME 89.1 fL (81.0-99.0); MEAN PLATELET VOLUME 10.2 fl (7.4-10.4); MONOCYTES % 10.5 % (2.0-8.0); NEUTROPHILS % 68.7 % (40.0-76.0); PLATELET 200 x1000/uL (130-400); RED BLOOD CELL COUNT 3.53 mill/uL (4.2-5.4); RED CELL DISTRIBUTION WIDTH 15.1 % (11.6-14.6)
[2018-09-15 12:00] VITALS: BP 116/52
[2018-09-15] MEDS ORDERED: HYDROCODONE/ACETAMINOPHEN 5/325MG TABLET PO PRN (13:30)
[2018-09-15] MEDS ORDERED: NA PHOS,M-B/NA PHOS,DI-BA ENEMA 118ML PR NR (13:30)
[2018-09-15 15:03] VITALS: BP 116/52
[2018-09-15 16:00] VITALS: BP 109/86
== END 2018-09-15 16:38 | disposition home or self-care (01) | DRG 199 ==
LOC: ER 20:35 → 6WST 09-08 02:51 → EDBEDREQTM 09-08 03:02 → EDBEDREQ 09-08 03:02 → ENRESERV 09-08 07:06
PROVIDERS: ADMIT Internal Medicine; ATTEND Internal Medicine
PROC: 5A1D70Z Performance of Urinary Filtration, Intermittent, Less than 6 Hours Per Day (ICD-10-PCS; principal; 2018-09-10)
PROC: 4A00X4Z Measurement of Central Nervous Electrical Activity, External Approach (ICD-10-PCS; 2018-09-10)
PROC: 5A1D70Z Performance of Urinary Filtration, Intermittent, Less than 6 Hours Per Day (ICD-10-PCS; 2018-09-12)
PROC: 5A1D70Z Performance of Urinary Filtration, Intermittent, Less than 6 Hours Per Day (ICD-10-PCS; 2018-09-14)
DX: I16.1 Hypertensive emergency (principal); G92 Toxic encephalopathy; E46 Unspecified protein-calorie malnutrition; E11.22 Type 2 diabetes mellitus with diabetic chronic kidney disease; E11.40 Type 2 diabetes mellitus with diabetic neuropathy, unspecified; N18.6 End stage renal disease; E11.65 Type 2 diabetes mellitus with hyperglycemia; E03.9 Hypothyroidism, unspecified; H54.7 Unspecified visual loss; N25.81 Secondary hyperparathyroidism of renal origin; E78.5 Hyperlipidemia, unspecified; E87.6 Hypokalemia; D63.8 Anemia in other chronic diseases classified elsewhere; G40.909 Epilepsy, unspecified, not intractable, without status epilepticus; R01.1 Cardiac murmur, unspecified; I12.0 Hypertensive chronic kidney disease with stage 5 chronic kidney disease or end stage renal disease; E11.319 Type 2 diabetes mellitus with unspecified diabetic retinopathy without macular edema; Z99.2 Dependence on renal dialysis; Z87.01 Personal history of pneumonia (recurrent); Z87.891 Personal history of nicotine dependence; Z87.440 Personal history of urinary (tract) infections; Z90.710 Acquired absence of both cervix and uterus; Z91.048 Other nonmedicinal substance allergy status; Z98.42 Cataract extraction status, left eye; Z98.41 Cataract extraction status, right eye; Z68.33 Body mass index [BMI] 33.0-33.9, adult; Z79.4 Long term (current) use of insulin; Z79.899 Other long term (current) drug therapy; Z84.1 Family history of disorders of kidney and ureter
CPT/HCPCS: 36415; 70551; 71045; 80048; 80061; 82140; 82542; 82607; 82728; 82746; 82962; 83036; 83540; 83550; 83735; 84100; 84145; 84439; 84443; 84481; 93306; 93970; 96374; 97163; 99285; C1893; J0360; J1170; J1200; J1815; J2270; J2310; J2765; J3010; J3490; J7030

== ENCOUNTER 2018-09-23 11:01 | Inpatient (IN) | payer MEDICAID ==
[~2018-09-23] VITALS: Ht 154.9 cm; Wt 85.3 kg
[2018-09-23] MEDS ORDERED: ASPIRIN 81MG TABLET PO ONE (11:30)
[2018-09-23 12:10] LABS: BASOPHILS % 0.7 % (0.0-2.0); EOSINOPHILS % 4.6 % (0.0-5.0); HEMATOCRIT. 35.8 % (36.0-48.0); HEMOGLOBIN. 11.7 g/dL (12.0-16.0); LYMPHOCYTES % 20.5 % (20.0-50.0); MEAN CORPUSCULAR HEMOGLOBIN 28.8 pg (28.0-32.0); MEAN CORPUSCULAR VOLUME 88.4 fL (81.0-99.0); MEAN PLATELET VOLUME 8.6 fl (7.4-10.4); MONOCYTES % 9.7 % (2.0-8.0); NEUTROPHILS % 64.5 % (40.0-76.0); PLATELET 355 x1000/uL (130-400); RED BLOOD CELL COUNT 4.05 mill/uL (4.2-5.4); RED CELL DISTRIBUTION WIDTH 15.4 % (11.6-14.6)
[2018-09-23 12:15] LABS: CHLORIDE 102 mEq/L (98-107)
[2018-09-23] MEDS ORDERED: ONDANSETRON HCL 4MG/2ML INJ IV ONE (12:15)
[2018-09-23] MEDS ORDERED: KETOROLAC 15MG/ML VIAL IV ONE (12:15)
[2018-09-23] MEDS: NITROGLYCERIN 0.4MG TABLET SL SL PRN ×2 (12:15→19:59)
[2018-09-23] MEDS ORDERED: HYDRALAZINE 20MG/ML VIAL IV ONE (13:45)
[2018-09-23] MEDS ORDERED: HYDROCODONE/ACETAMINOPHEN 5/325MG TABLET PO PRN (14:30)
[2018-09-23] MEDS ORDERED: LOSARTAN POTASSIUM 100 MG TABLET PO SCH ×2 (14:30→20:00)
[2018-09-23] MEDS ORDERED: DEXTROSE 50% WATER 50ML SYRINGE IV PRN (14:30)
[2018-09-23] MEDS ORDERED: MORPHINE SULFATE 4 MG/ML CPJ (NOT FOR IM USE) IV PRN (14:30)
[2018-09-23] MEDS ORDERED: ONDANSETRON HCL 4MG/2ML INJ IV PRN (14:30)
[2018-09-23] MEDS ORDERED: ACETAMINOPHEN 325MG TABLET PO PRN (14:30)
[2018-09-23] MEDS ORDERED: HYDRALAZINE 20MG/ML VIAL IV PRN ×2 (14:30→19:59)
[2018-09-23] MEDS ORDERED: BLOOD SUGAR DIAGNOSTIC STRIP TEST SCH (17:00)
[2018-09-23] MEDS ORDERED: NIFEDIPINE XL 60MG TAB PO SCH ×2 (17:00→20:00)
[2018-09-23] MEDS ORDERED: CLONIDINE 0.1MG TABLET PO PRN (19:00)
[2018-09-23] MEDS ORDERED: HYDRALAZINE HCL 100MG TABLET PO NR (19:59)
[2018-09-24 01:47] VITALS: BP 105/60
[2018-09-24 01:58] VITALS: BP 105/60
[2018-09-24 04:00] VITALS: BP 117/56
[2018-09-24] MEDS: HYDRALAZINE HCL 100MG TABLET PO SCH ×3 (06:00→22:00)
[2018-09-24] MEDS: BLOOD SUGAR DIAGNOSTIC STRIP TEST SCH ×4 (06:29→21:00)
[2018-09-24] MEDS: INSULIN LISPRO 100 UNITS/ML SUBCUT SCH ×4 (06:36→21:00)
[2018-09-24] MEDS: GABAPENTIN 300MG CAPSULE PO SCH ×3 (06:43→22:00)
[2018-09-24 08:00] VITALS: BP 134/59
[2018-09-24 09:05] LABS: BASOPHILS % 0.4 % (0.0-2.0); EOSINOPHILS % 4.5 % (0.0-5.0); HEMATOCRIT. 35.7 % (36.0-48.0); HEMOGLOBIN. 11.5 g/dL (12.0-16.0); LYMPHOCYTES % 26.1 % (20.0-50.0); MEAN CORPUSCULAR HEMOGLOBIN 28.9 pg (28.0-32.0); MEAN CORPUSCULAR VOLUME 89.6 fL (81.0-99.0); MEAN PLATELET VOLUME 8.6 fl (7.4-10.4); MONOCYTES % 9.7 % (2.0-8.0); NEUTROPHILS % 59.3 % (40.0-76.0); PLATELET 334 x1000/uL (130-400); RED BLOOD CELL COUNT 3.98 mill/uL (4.2-5.4); RED CELL DISTRIBUTION WIDTH 15.3 % (11.6-14.6)
[2018-09-24 09:08] LABS: CHLORIDE 103 mEq/L (98-107)
[2018-09-24] MEDS: NIFEDIPINE XL 60MG TAB PO SCH ×2 (09:14→21:00)
[2018-09-24] MEDS: ASPIRIN 81MG TABLET PO SCH (09:14)
[2018-09-24] MEDS: LEVETIRACETAM 500MG TABLET PO SCH ×3 (09:14→21:00)
[2018-09-24] MEDS: LOSARTAN POTASSIUM 100 MG TABLET PO SCH (09:14)
[2018-09-24] MEDS: ENOXAPARIN 30MG/0.3ML SYR SUBCUT SCH (09:15)
[2018-09-24 12:00] VITALS: BP 112/70
[2018-09-24 20:00] VITALS: BP 105/46
[2018-09-24] MEDS: ATORVASTATIN CALCIUM 40MG TABLET PO SCH (21:00)
[2018-09-25] VITALS: BP 129/51
[2018-09-25 04:00] VITALS: BP 148/63
[2018-09-25] MEDS: GABAPENTIN 300MG CAPSULE PO SCH ×3 (06:15→21:56)
[2018-09-25] MEDS: HYDRALAZINE HCL 100MG TABLET PO SCH ×3 (06:16→21:56)
[2018-09-25] MEDS: BLOOD SUGAR DIAGNOSTIC STRIP TEST SCH ×4 (06:16→21:56)
[2018-09-25 06:17] LABS: BASOPHILS % 0.4 % (0.0-2.0); HEMATOCRIT. 30.9 % (36.0-48.0); LYMPHOCYTES % 19.9 % (20.0-50.0); MEAN CORPUSCULAR VOLUME 89.3 fL (81.0-99.0); MEAN PLATELET VOLUME 8.6 fl (7.4-10.4); MONOCYTES % 8.7 % (2.0-8.0); PLATELET 323 x1000/uL (130-400); RED BLOOD CELL COUNT 3.46 mill/uL (4.2-5.4); RED CELL DISTRIBUTION WIDTH 15.7 % (11.6-14.6)
[2018-09-25 06:34] LABS: PHOSPHORUS 4.3 mg/dL (2.5-4.9)
[2018-09-25] MEDS: INSULIN LISPRO 100 UNITS/ML SUBCUT SCH ×4 (07:43→22:11)
[2018-09-25 08:00] VITALS: BP 142/58
[2018-09-25] MEDS ORDERED: FOLIC ACID/VITAMIN B COMP W-C TABLET PO SCH (09:00)
[2018-09-25] MEDS: LOSARTAN POTASSIUM 100 MG TABLET PO SCH (09:00)
[2018-09-25] MEDS: LEVETIRACETAM 500MG TABLET PO SCH ×3 (10:31→21:55)
[2018-09-25] MEDS: ENOXAPARIN 30MG/0.3ML SYR SUBCUT SCH (10:31)
[2018-09-25] MEDS: ASPIRIN 81MG TABLET PO SCH (10:36)
[2018-09-25 12:00] VITALS: BP 159/78
[2018-09-25] MEDS ORDERED: ACETAMINOPHEN 325MG TABLET PO PRN (13:15)
[2018-09-25] MEDS ORDERED: LACTULOSE 20G/30ML UDC PO NR (14:00)
[2018-09-25] MEDS ORDERED: ACETAMINOPHEN 325MG TABLET PO NR (15:15)
[2018-09-25] MEDS: NIFEDIPINE XL 60MG TAB PO SCH ×2 (15:18→21:57)
[2018-09-25] MEDS: OMEPRAZOLE 20MG CAPSULE EXTENDED RELEASE PO SCH (15:18)
[2018-09-25] MEDS ORDERED: ACETAMINOPHEN 500MG TABLET PO PRN (15:30)
[2018-09-25 16:00] VITALS: BP_SYST 119; BP_SYST 139; BP_DIAS 41; BP_DIAS 51
[2018-09-25 20:00] VITALS: BP 118/46
[2018-09-25] MEDS: ATORVASTATIN CALCIUM 40MG TABLET PO SCH (21:55)
[2018-09-25] MEDS ORDERED: POTASSIUM CHLORIDE 20MEQ TABLET SR PO NR (23:02)
[2018-09-26] VITALS: BP 116/52
[2018-09-26 04:00] VITALS: BP 146/68
[2018-09-26] MEDS: HYDRALAZINE HCL 100MG TABLET PO SCH (06:00)
[2018-09-26] MEDS: GABAPENTIN 300MG CAPSULE PO SCH (07:09)
[2018-09-26] MEDS: OMEPRAZOLE 20MG CAPSULE EXTENDED RELEASE PO SCH (07:09)
[2018-09-26] MEDS: BLOOD SUGAR DIAGNOSTIC STRIP TEST SCH (07:09)
[2018-09-26] MEDS: LEVETIRACETAM 500MG TABLET PO SCH ×2 (07:44→08:22)
[2018-09-26 08:00] VITALS: BP 156/63
[2018-09-26] MEDS: ENOXAPARIN 30MG/0.3ML SYR SUBCUT SCH (08:22)
[2018-09-26] MEDS: NIFEDIPINE XL 60MG TAB PO SCH (08:22)
[2018-09-26] MEDS: ASPIRIN 81MG TABLET PO SCH (08:23)
[2018-09-26] MEDS: LOSARTAN POTASSIUM 100 MG TABLET PO SCH (08:23)
[2018-09-26] MEDS: INSULIN LISPRO 100 UNITS/ML SUBCUT SCH (08:24)
== END 2018-09-26 11:23 | disposition home or self-care (01) | DRG 199 ==
LOC: ER 11:01 → 8WST 14:11 → EDBEDREQSVC 14:36 → EDBEDREQ 14:36 → EDBEDREQSVC 17:36 → ENRESERV 09-24 00:16
PROVIDERS: ADMIT Internal Medicine; ATTEND Internal Medicine
PROC: 5A1D70Z Performance of Urinary Filtration, Intermittent, Less than 6 Hours Per Day (ICD-10-PCS; principal; 2018-09-25)
DX: I16.0 Hypertensive urgency (principal); E11.22 Type 2 diabetes mellitus with diabetic chronic kidney disease; I24.8 Other forms of acute ischemic heart disease; E11.319 Type 2 diabetes mellitus with unspecified diabetic retinopathy without macular edema; E11.40 Type 2 diabetes mellitus with diabetic neuropathy, unspecified; N18.6 End stage renal disease; I12.0 Hypertensive chronic kidney disease with stage 5 chronic kidney disease or end stage renal disease; I27.20 Pulmonary hypertension, unspecified; G40.909 Epilepsy, unspecified, not intractable, without status epilepticus; E78.5 Hyperlipidemia, unspecified; D63.8 Anemia in other chronic diseases classified elsewhere; E66.9 Obesity, unspecified; E03.9 Hypothyroidism, unspecified; Z86.73 Personal history of transient ischemic attack (TIA), and cerebral infarction without residual deficits; Z87.01 Personal history of pneumonia (recurrent); Z99.2 Dependence on renal dialysis; Z68.35 Body mass index [BMI] 35.0-35.9, adult; Z87.891 Personal history of nicotine dependence; Z90.710 Acquired absence of both cervix and uterus; Z91.19 Patient's noncompliance with other medical treatment and regimen; Z91.048 Other nonmedicinal substance allergy status; Z79.899 Other long term (current) drug therapy; Z71.3 Dietary counseling and surveillance; Z87.798 Personal history of other (corrected) congenital malformations
CPT/HCPCS: 36415; 71045; 80048; 82962; 83735; 83880; 84100; 84484; 93005; 96374; 97116; 97162; 99291; J0360; J1650; J1815; J1885; J2405

== ENCOUNTER 2018-10-22 15:11 | Inpatient (IN) | payer MEDICAID ==
[~2018-10-22] VITALS: Ht 162.6 cm; Wt 73.5 kg
[~2018-10-22 15:11] MED LIST changes: -AMLO10TA80 MT
[2018-10-22] MEDS ORDERED: MORPHINE SULFATE 4 MG/ML CPJ (NOT FOR IM USE) IV STA (17:15)
[2018-10-22] MEDS ORDERED: SODIUM CHLORIDE 0.9% 1,000 ML IV ONE (17:15)
[2018-10-22] MEDS ORDERED: ONDANSETRON HCL 4MG/2ML INJ IV STA (17:15)
[2018-10-22] MEDS ORDERED: METRONIDAZOLE 500 MG PREMIX 100 ML IV ONE (17:15)
[2018-10-22] MEDS ORDERED: PIPERACILLIN/TAZ 3.375G PREMIX 50 ML IV ONE (17:15)
[2018-10-22] MEDS ORDERED: HYDRALAZINE 20MG/ML VIAL IV ONE (17:45)
[2018-10-22] MEDS ORDERED: KETOROLAC 30MG/ML VIAL IV ONE (18:00)
[2018-10-22 18:04] LABS: BASOPHILS % 0.9 % (0.0-2.0); EOSINOPHILS % 2.4 % (0.0-5.0); HEMATOCRIT. 38.6 % (36.0-48.0); HEMOGLOBIN. 12.5 g/dL (12.0-16.0); LYMPHOCYTES % 16.1 % (20.0-50.0); MEAN CORPUSCULAR VOLUME 89.3 fL (81.0-99.0); MEAN PLATELET VOLUME 9.7 fl (7.4-10.4); MONOCYTES % 7.9 % (2.0-8.0); NEUTROPHILS % 72.7 % (40.0-76.0); PLATELET 298 x1000/uL (130-400); RED BLOOD CELL COUNT 4.32 mill/uL (4.2-5.4); RED CELL DISTRIBUTION WIDTH 15.5 % (11.6-14.6)
[2018-10-22 18:07] LABS: CHLORIDE 104 mEq/L (98-107); PROTHROMBIN TIME 10.7 sec (9.6-11.0)
[2018-10-22 18:16] LABS: CREATINE KINASE 100 IU/L (26-192)
[2018-10-22 18:31] LABS: CREATINE KINASE MB FRACTION < 1.0 ng/mL (0.5-3.6)
[2018-10-22] MEDS ORDERED: MORPHINE SULFATE 4 MG/ML CPJ (NOT FOR IM USE) IV ONE (20:30)
[2018-10-22] MEDS ORDERED: SODIUM POLYSTYRENE SULFONATE 15 G/60 ML BOT PO ONE (20:30)
[2018-10-23 02:00] VITALS: BP 180/91
[2018-10-23] MEDS ORDERED: DEXTROSE 50% WATER 50ML SYRINGE IV PRN (02:45)
[2018-10-23] MEDS ORDERED: MORPHINE SULFATE 4 MG/ML CPJ (NOT FOR IM USE) IV PRN (02:45)
[2018-10-23] MEDS ORDERED: ONDANSETRON HCL 4MG/2ML INJ IV PRN (02:45)
[2018-10-23] MEDS: CLONIDINE 0.1MG TABLET PO PRN (03:35)
[2018-10-23] MEDS ORDERED: DIPHENHYDRAMINE 25MG CAPSULE PO PRN (03:45)
[2018-10-23] MEDS: ACETAMINOPHEN 325MG TABLET PO PRN ×3 (03:56→21:25)
[2018-10-23 04:00] VITALS: BP 142/62
[2018-10-23] MEDS: BLOOD SUGAR DIAGNOSTIC STRIP TEST SCH ×4 (05:57→21:23)
[2018-10-23 08:00] VITALS: BP 124/41
[2018-10-23] MEDS: INSULIN LISPRO 100 UNITS/ML SUBCUT SCH ×4 (08:10→21:00)
[2018-10-23] MEDS: GABAPENTIN 100MG CAPSULE PO SCH ×3 (08:56→18:24)
[2018-10-23 10:06] LABS: BASOPHILS % 1.2 % (0.0-2.0); EOSINOPHILS % 3.2 % (0.0-5.0); HEMATOCRIT. 36.6 % (36.0-48.0); LYMPHOCYTES % 20.9 % (20.0-50.0); MEAN CORPUSCULAR HEMOGLOBIN 28.9 pg (28.0-32.0); MEAN CORPUSCULAR VOLUME 87.8 fL (81.0-99.0); MEAN PLATELET VOLUME 8.8 fl (7.4-10.4); MONOCYTES % 9.8 % (2.0-8.0); NEUTROPHILS % 64.9 % (40.0-76.0); PLATELET 320 x1000/uL (130-400); RED BLOOD CELL COUNT 4.17 mill/uL (4.2-5.4); RED CELL DISTRIBUTION WIDTH 15.5 % (11.6-14.6)
[2018-10-23 12:00] VITALS: BP 127/51
[2018-10-23 15:04] LABS: CLARITY URINE CLOUDY (CLEAR); COLOR URINE YELLOW (YELLOW); KETONES URINE 1+ (NEGATIVE); LEUKOCYTE ESTERASE URINE NEGATIVE (NEGATIVE); NITRITE URINE NEGATIVE (NEGATIVE); OCCULT BLOOD URINE NEGATIVE (NEGATIVE); PROTEIN URINE 3+ (NEGATIVE); SPECIFIC GRAVITY URINE 1.027 (1.005-1.030); UROBILINOGEN URINE 0.2 E.U./dL (0.2-1.0)
[2018-10-23 16:00] VITALS: BP 100/68
[2018-10-23 20:00] VITALS: BP 174/84
[2018-10-23] MEDS ORDERED: ATORVASTATIN CALCIUM 40MG TABLET PO SCH (21:00)
[2018-10-23] MEDS: LEVETIRACETAM 500MG TABLET PO SCH (21:25)
[2018-10-23] MEDS ORDERED: INSULIN GLARGINE UD 100 UNITS/ML SYR SUBCUT SCH ×2 (22:00)
[2018-10-24] VITALS: BP 165/69
[2018-10-24] MEDS: CLONIDINE 0.1MG TABLET PO PRN (00:42)
[2018-10-24 04:00] VITALS: BP 150/63
[2018-10-24] MEDS: BLOOD SUGAR DIAGNOSTIC STRIP TEST SCH ×3 (06:06→17:40)
[2018-10-24 07:21] LABS: BASOPHILS % 0.9 % (0.0-2.0); EOSINOPHILS % 5.8 % (0.0-5.0); HEMATOCRIT. 35.7 % (36.0-48.0); HEMOGLOBIN. 11.9 g/dL (12.0-16.0); LYMPHOCYTES % 25.6 % (20.0-50.0); MEAN CORPUSCULAR HEMOGLOBIN 29.1 pg (28.0-32.0); MEAN CORPUSCULAR VOLUME 87.2 fL (81.0-99.0); MEAN PLATELET VOLUME 9.3 fl (7.4-10.4); MONOCYTES % 10.1 % (2.0-8.0); NEUTROPHILS % 57.6 % (40.0-76.0); PLATELET 228 x1000/uL (130-400); RED CELL DISTRIBUTION WIDTH 15.4 % (11.6-14.6)
[2018-10-24 08:00] VITALS: BP 155/55
[2018-10-24] MEDS: INSULIN LISPRO 100 UNITS/ML SUBCUT SCH ×3 (08:10→17:57)
[2018-10-24] MEDS: LEVETIRACETAM 500MG TABLET PO SCH (08:30)
[2018-10-24] MEDS: GABAPENTIN 100MG CAPSULE PO SCH ×3 (08:30→17:00)
[2018-10-24] MEDS: HYDROCODONE/ACETAMINOPHEN 5/325MG TABLET PO PRN ×2 (08:31→13:09)
[2018-10-24] MEDS ORDERED: ONDANSETRON HCL 4MG/2ML INJ IV PRN (11:15)
[2018-10-24] MEDS ORDERED: NIFEDIPINE XL 60MG TAB PO SCH (11:30)
[2018-10-24 12:00] VITALS: BP 143/67
[2018-10-24] MEDS ORDERED: CEFAZOLIN 1000MG PREMIX 50 ML IV SCH (14:00)
[2018-10-24] MEDS ORDERED: FAMOTIDINE 20MG TABLET PO SCH (21:00)
[2018-10-25] MEDS ORDERED: CEFAZOLIN SODIUM 1000MG/VIAL IV SCH (09:00)
== END 2018-10-24 18:15 | disposition home or self-care (01) | DRG 463 ==
LOC: ER 16:38 → 7WST 20:21 → EDBEDREQ 20:24 → EDBEDREQTM 20:24 → EDBEDREQSVC 20:24 → ENRESERV 23:33
PROVIDERS: ADMIT Internal Medicine; ATTEND Internal Medicine
PROC: 5A1D70Z Performance of Urinary Filtration, Intermittent, Less than 6 Hours Per Day (ICD-10-PCS; 2018-10-23)
PROC: 5A1D70Z Performance of Urinary Filtration, Intermittent, Less than 6 Hours Per Day (ICD-10-PCS; principal; 2018-10-24)
DX: N39.0 Urinary tract infection, site not specified (principal); E11.22 Type 2 diabetes mellitus with diabetic chronic kidney disease; E11.40 Type 2 diabetes mellitus with diabetic neuropathy, unspecified; N18.6 End stage renal disease; I27.20 Pulmonary hypertension, unspecified; E87.5 Hyperkalemia; N25.81 Secondary hyperparathyroidism of renal origin; E78.5 Hyperlipidemia, unspecified; E03.9 Hypothyroidism, unspecified; D63.8 Anemia in other chronic diseases classified elsewhere; E66.9 Obesity, unspecified; E78.00 Pure hypercholesterolemia, unspecified; G40.909 Epilepsy, unspecified, not intractable, without status epilepticus; Q07.00 Arnold-Chiari syndrome without spina bifida or hydrocephalus; Z99.2 Dependence on renal dialysis; Z87.01 Personal history of pneumonia (recurrent); Z82.49 Family history of ischemic heart disease and other diseases of the circulatory system; Z86.73 Personal history of transient ischemic attack (TIA), and cerebral infarction without residual deficits; Z87.891 Personal history of nicotine dependence; Z90.710 Acquired absence of both cervix and uterus; Z91.048 Other nonmedicinal substance allergy status; Z79.4 Long term (current) use of insulin; Z79.899 Other long term (current) drug therapy; Z84.1 Family history of disorders of kidney and ureter; Z68.27 Body mass index [BMI] 27.0-27.9, adult; Z91.15 Patient's noncompliance with renal dialysis
CPT/HCPCS: 36415; 71045; 74176; 80048; 82550; 82553; 82962; 83605; 83880; 84145; 84443; 84484; 87015; 87045; 87427; 87449; 87493; 93005; 96365; 96375; 99285; J0360; J0690; J1815; J2270; J2405; J2543; J3490; J7030; J7050

== ENCOUNTER 2018-11-02 04:24 | Inpatient (IN) | payer MEDICAID ==
[~2018-11-02] VITALS: Ht 152.4 cm; Wt 77.6 kg
[2018-11-02] MEDS ORDERED: MORPHINE SULFATE 4 MG/ML CPJ (NOT FOR IM USE) IV STA (06:20)
[2018-11-02] MEDS ORDERED: ONDANSETRON HCL 4MG/2ML INJ IV STA (06:20)
[2018-11-02] MEDS ORDERED: IPRATROPIUM BROMIDE (0.02%) 0.5MG/2.5ML NEB HHN STA (06:22)
[2018-11-02] MEDS ORDERED: ALBUTEROL (0.083%) 2.5MG/3ML NEB HHN STA (06:22)
[2018-11-02] MEDS ORDERED: MAGNESIUM 2 G PREMIX 50 ML IV ONE (06:30)
[2018-11-02] MEDS ORDERED: HYDRALAZINE 20MG/ML VIAL IV ONE (06:30)
[2018-11-02] MEDS ORDERED: ASPIRIN 81MG TABLET PO ONE (06:30)
[2018-11-02] MEDS ORDERED: NITROGLYCERIN OINT 1GM/INCH UDPKT TD ONE (06:30)
[2018-11-02 06:39] LABS: EOSINOPHILS % 2.7 % (0.0-5.0); HEMATOCRIT. 35.3 % (36.0-48.0); HEMOGLOBIN. 11.7 g/dL (12.0-16.0); MEAN CORPUSCULAR HEMOGLOBIN 28.6 pg (28.0-32.0); MEAN PLATELET VOLUME 9.7 fl (7.4-10.4); NEUTROPHILS % 74.3 % (40.0-76.0); PLATELET 288 x1000/uL (130-400); RED BLOOD CELL COUNT 4.11 mill/uL (4.2-5.4); RED CELL DISTRIBUTION WIDTH 15.4 % (11.6-14.6)
[2018-11-02 06:41] LABS: CHLORIDE 106 mEq/L (98-107)
[2018-11-02 06:45] LABS: PARTIAL THROMBOPLASTIN TIME 28.5 sec (23.4-31.0); PROTHROMBIN TIME 10.4 sec (9.6-11.0)
[2018-11-02] MEDS ORDERED: SODIUM BICARBONATE 8.4% 1 MEQ/ML 50ML SYR IV ONE (08:30)
[2018-11-02] MEDS ORDERED: IOPAMIDOL 20 ML VIAL IT ONE (08:56)
[2018-11-02] MEDS ORDERED: IOHEXOL-300 50 ML BOTTLE IV ONE (09:16)
[2018-11-02 10:25] VITALS: BP 171/64
[2018-11-02] MEDS ORDERED: LORAZEPAM 0.5MG TABLET PO PRN (14:30)
[2018-11-02] MEDS ORDERED: IPRATROPIUM/ALBUTEROL 0.5-3(2.5)MG/3ML NEB INH PRN (14:30)
[2018-11-02] MEDS ORDERED: HYDROCODONE/ACETAMINOPHEN 5/325MG TABLET PO PRN (14:30)
[2018-11-02] MEDS ORDERED: CLONIDINE 0.1MG TABLET PO PRN (14:30)
[2018-11-02] MEDS ORDERED: ACETAMINOPHEN 325MG TABLET PO PRN (14:30)
[2018-11-02 16:00] VITALS: BP 141/51
[2018-11-02] MEDS ORDERED: DEXTROSE 50% WATER 50ML SYRINGE IV PRN (16:00)
[2018-11-02] MEDS ORDERED: AMLODIPINE 5MG TABLET PO NR (16:30)
[2018-11-02] MEDS: INSULIN LISPRO 100 UNITS/ML SUBCUT SCH ×2 (17:21→21:13)
[2018-11-02] MEDS: BLOOD SUGAR DIAGNOSTIC STRIP TEST SCH ×2 (17:21→20:34)
[2018-11-02 20:00] VITALS: BP 146/47
[2018-11-02] MEDS: AMLODIPINE 5MG TABLET PO SCH (20:34)
[2018-11-02] MEDS: ATORVASTATIN CALCIUM 40MG TABLET PO SCH (21:11)
[2018-11-02] MEDS: LEVETIRACETAM 500MG/5ML CUP PO SCH (21:11)
[2018-11-02] MEDS: INSULIN GLARGINE UD 100 UNITS/ML SYR SUBCUT SCH (21:12)
[2018-11-02 21:26] LABS: CLARITY URINE CLOUDY (CLEAR); COLOR URINE YELLOW (YELLOW); KETONES URINE TRACE (NEGATIVE); LEUKOCYTE ESTERASE URINE 2+ (NEGATIVE); NITRITE URINE NEGATIVE (NEGATIVE); OCCULT BLOOD URINE NEGATIVE (NEGATIVE); PROTEIN URINE 3+ (NEGATIVE); SPECIFIC GRAVITY URINE 1.019 (1.005-1.030); UROBILINOGEN URINE 0.2 E.U./dL (0.2-1.0)
[2018-11-02 21:38] LABS: *AMPHETAMINES SCREEN URINE NEGATIVE (NEGATIVE); *BARBITURATES SCREEN URINE NEGATIVE (NEGATIVE); *BENZODIAZEPINES SCREEN URINE NEGATIVE (NEGATIVE); *COCAINE SCREEN URINE NEGATIVE (NEGATIVE)
[2018-11-02 21:39] LABS: CANNABINOID URINE SCREEN NEGATIVE (NEGATIVE); METHADONE URINE SCREEN NEGATIVE (NEGATIVE); OPIATES URINE SCREEN PRESUMTIVE POSITIVE (NEGATIVE); PHENCYCLIDINE URINE SCREEN NEGATIVE (NEGATIVE)
[2018-11-03] VITALS (7 sets, daily range): BP systolic 111–156; BP diastolic 42–85
[2018-11-03 05:58] LABS: BASOPHILS % 1.1 % (0.0-2.0); EOSINOPHILS % 3.5 % (0.0-5.0); HEMATOCRIT. 31.5 % (36.0-48.0); HEMOGLOBIN. 10.5 g/dL (12.0-16.0); MEAN CORPUSCULAR HEMOGLOBIN 28.6 pg (28.0-32.0); MEAN CORPUSCULAR VOLUME 85.5 fL (81.0-99.0); MEAN PLATELET VOLUME 9.8 fl (7.4-10.4); MONOCYTES % 12.4 % (2.0-8.0); PLATELET 270 x1000/uL (130-400); RED BLOOD CELL COUNT 3.68 mill/uL (4.2-5.4); RED CELL DISTRIBUTION WIDTH 15.7 % (11.6-14.6)
[2018-11-03] MEDS: BLOOD SUGAR DIAGNOSTIC STRIP TEST SCH ×4 (06:52→21:23)
[2018-11-03 07:23] LABS: CHLORIDE 107 mEq/L (98-107)
[2018-11-03] MEDS: INSULIN LISPRO 100 UNITS/ML SUBCUT SCH ×4 (07:50→21:24)
[2018-11-03] MEDS: LEVETIRACETAM 500MG/5ML CUP PO SCH ×2 (09:36→21:23)
[2018-11-03] MEDS: AMLODIPINE 5MG TABLET PO SCH ×2 (09:37→21:23)
[2018-11-03] MEDS: INSULIN GLARGINE UD 100 UNITS/ML SYR SUBCUT SCH ×2 (10:08→21:24)
[2018-11-03] MEDS: HYDROMORPHONE HCL/PF 2MG/ML CPJ IV PRN (10:12)
[2018-11-03] MEDS ORDERED: SUMATRIPTAN SUCCINATE 6MG/0.5ML VIAL SUBCUT SCH (15:00)
[2018-11-03] MEDS: ONDANSETRON HCL 4MG/2ML INJ IV PRN (17:29)
[2018-11-03] MEDS: DOCUSATE SODIUM 100MG CAPSULE PO PRN (17:36)
[2018-11-03] MEDS: ATORVASTATIN CALCIUM 40MG TABLET PO SCH (21:23)
[2018-11-04] MEDS: ONDANSETRON HCL 4MG/2ML INJ IV PRN (00:27)
[2018-11-04] MEDS: DOCUSATE SODIUM 100MG CAPSULE PO PRN ×2 (00:27→09:59)
[2018-11-04 04:00] VITALS: BP 132/50
[2018-11-04 06:25] LABS: BASOPHILS % 1.4 % (0.0-2.0); HEMATOCRIT. 34.5 % (36.0-48.0); HEMOGLOBIN. 11.3 g/dL (12.0-16.0); LYMPHOCYTES % 29.4 % (20.0-50.0); MEAN CORPUSCULAR HEMOGLOBIN 28.5 pg (28.0-32.0); MEAN CORPUSCULAR VOLUME 87.4 fL (81.0-99.0); MEAN PLATELET VOLUME 10.1 fl (7.4-10.4); MONOCYTES % 12.6 % (2.0-8.0); NEUTROPHILS % 51.6 % (40.0-76.0); PLATELET 254 x1000/uL (130-400); RED BLOOD CELL COUNT 3.95 mill/uL (4.2-5.4); RED CELL DISTRIBUTION WIDTH 15.9 % (11.6-14.6)
[2018-11-04] MEDS: BLOOD SUGAR DIAGNOSTIC STRIP TEST SCH ×4 (06:41→21:37)
[2018-11-04 06:45] LABS: CHLORIDE 106 mEq/L (98-107)
[2018-11-04] MEDS: INSULIN LISPRO 100 UNITS/ML SUBCUT SCH ×4 (07:50→21:00)
[2018-11-04 07:56] VITALS: BP 130/49
[2018-11-04] MEDS: AMLODIPINE 5MG TABLET PO SCH ×2 (09:59→21:37)
[2018-11-04] MEDS: LEVETIRACETAM 500MG/5ML CUP PO SCH ×2 (09:59→21:36)
[2018-11-04] MEDS: INSULIN GLARGINE UD 100 UNITS/ML SYR SUBCUT SCH ×2 (10:02→21:46)
[2018-11-04 12:00] VITALS: BP 151/57
[2018-11-04] MEDS ORDERED: LACTULOSE 20G/30ML UDC PO NR (15:30)
[2018-11-04 16:00] VITALS: BP 148/59
[2018-11-04 20:00] VITALS: BP 136/45
[2018-11-04] MEDS: ATORVASTATIN CALCIUM 40MG TABLET PO SCH (21:36)
[2018-11-05] VITALS (7 sets, daily range): BP systolic 124–151; BP diastolic 46–66
[2018-11-05] MEDS: HYDROMORPHONE HCL/PF 2MG/ML CPJ IV PRN (02:58)
[2018-11-05 06:41] LABS: EOSINOPHILS % 4.9 % (0.0-5.0); HEMATOCRIT. 34.8 % (36.0-48.0); HEMOGLOBIN. 11.5 g/dL (12.0-16.0); LYMPHOCYTES % 27.6 % (20.0-50.0); MEAN CORPUSCULAR HEMOGLOBIN 28.8 pg (28.0-32.0); MEAN CORPUSCULAR VOLUME 86.9 fL (81.0-99.0); MEAN PLATELET VOLUME 10.2 fl (7.4-10.4); MONOCYTES % 12.3 % (2.0-8.0); NEUTROPHILS % 54.2 % (40.0-76.0); PLATELET 251 x1000/uL (130-400); RED CELL DISTRIBUTION WIDTH 15.2 % (11.6-14.6)
[2018-11-05] MEDS: BLOOD SUGAR DIAGNOSTIC STRIP TEST SCH ×4 (07:20→20:55)
[2018-11-05 07:22] LABS: CHLORIDE 106 mEq/L (98-107)
[2018-11-05] MEDS: INSULIN LISPRO 100 UNITS/ML SUBCUT SCH ×4 (07:50→20:55)
[2018-11-05] MEDS: AMLODIPINE 5MG TABLET PO SCH ×2 (09:15→20:55)
[2018-11-05] MEDS: LEVETIRACETAM 500MG/5ML CUP PO SCH ×2 (09:15→20:55)
[2018-11-05] MEDS: INSULIN GLARGINE UD 100 UNITS/ML SYR SUBCUT SCH (10:18)
[2018-11-05] MEDS ORDERED: TEMAZEPAM 15MG CAPSULE PO PRN (11:45)
[2018-11-05] MEDS: ATORVASTATIN CALCIUM 40MG TABLET PO SCH (20:55)
[2018-11-05] MEDS ORDERED: TRAZODONE HCL 50MG TABLET PO SCH (21:00)
== END 2018-11-05 20:52 | disposition home or self-care (01) | DRG 199 ==
LOC: ER 04:24 → 6WST 06:40 → EDBEDREQTM 06:45 → EDBEDREQ 06:45 → ENRESERV 07:08
PROVIDERS: ADMIT Internal Medicine; ATTEND Internal Medicine
PROC: 5A1D70Z Performance of Urinary Filtration, Intermittent, Less than 6 Hours Per Day (ICD-10-PCS; principal; 2018-11-02)
PROC: 05JY3ZZ Inspection of Upper Vein, Percutaneous Approach (ICD-10-PCS; 2018-11-02)
PROC: B51M1ZZ Fluoroscopy of Right Upper Extremity Veins using Low Osmolar Contrast (ICD-10-PCS; 2018-11-02)
PROC: 5A1D70Z Performance of Urinary Filtration, Intermittent, Less than 6 Hours Per Day (ICD-10-PCS; 2018-11-05)
DX: I16.1 Hypertensive emergency (principal); I24.8 Other forms of acute ischemic heart disease; E11.22 Type 2 diabetes mellitus with diabetic chronic kidney disease; N18.6 End stage renal disease; E87.5 Hyperkalemia; I13.2 Hypertensive heart and chronic kidney disease with heart failure and with stage 5 chronic kidney disease, or end stage renal disease; E03.9 Hypothyroidism, unspecified; D64.9 Anemia, unspecified; E78.5 Hyperlipidemia, unspecified; F41.1 Generalized anxiety disorder; G40.909 Epilepsy, unspecified, not intractable, without status epilepticus; F32.9 Major depressive disorder, single episode, unspecified; R63.5 Abnormal weight gain; I50.9 Heart failure, unspecified; Z79.899 Other long term (current) drug therapy; Z82.49 Family history of ischemic heart disease and other diseases of the circulatory system; Z79.4 Long term (current) use of insulin; Z90.710 Acquired absence of both cervix and uterus; Z91.15 Patient's noncompliance with renal dialysis; Z91.19 Patient's noncompliance with other medical treatment and regimen; Z99.2 Dependence on renal dialysis; Q07.00 Arnold-Chiari syndrome without spina bifida or hydrocephalus; Z88.8 Allergy status to other drugs, medicaments and biological substances; Z68.33 Body mass index [BMI] 33.0-33.9, adult
CPT/HCPCS: 36415; 36569; 36573; 71045; 80048; 80305; 82962; 83880; 84484; 93005; 93306; 93970; 94003; 94640; 94660; 99291; C1725; C1887; C1893; J0360; J1170; J1815; J2270; J2405; J3030; J3475; J7611; Q9966; Q9967

== ENCOUNTER 2018-11-13 02:50 | Emergency (ER) | payer MEDICAID ==
[~2018-11-13] VITALS: Ht 170.2 cm; Wt 77.0 kg
[2018-11-13 04:48] LABS: BASOPHILS % 1.2 % (0.0-2.0); EOSINOPHILS % 1.7 % (0.0-5.0); HEMATOCRIT. 36.2 % (36.0-48.0); HEMOGLOBIN. 12.2 g/dL (12.0-16.0); LYMPHOCYTES % 19.1 % (20.0-50.0); MEAN CORPUSCULAR HEMOGLOBIN 29.1 pg (28.0-32.0); MEAN CORPUSCULAR VOLUME 86.4 fL (81.0-99.0); MEAN PLATELET VOLUME 10.5 fl (7.4-10.4); MONOCYTES % 8.8 % (2.0-8.0); NEUTROPHILS % 69.2 % (40.0-76.0); PLATELET 278 x1000/uL (130-400); RED BLOOD CELL COUNT 4.19 mill/uL (4.2-5.4); RED CELL DISTRIBUTION WIDTH 14.9 % (11.6-14.6)
[2018-11-13 04:51] LABS: CHLORIDE 98 mEq/L (98-107)
[2018-11-13 06:06] VITALS: BP 172/69
== END 2018-11-13 06:16 | disposition home or self-care (01) ==
LOC: ER 02:50
DX: I12.0 Hypertensive chronic kidney disease with stage 5 chronic kidney disease or end stage renal disease (principal); E11.22 Type 2 diabetes mellitus with diabetic chronic kidney disease; N18.6 End stage renal disease; R07.89 Other chest pain; Z99.2 Dependence on renal dialysis; E78.00 Pure hypercholesterolemia, unspecified; Z98.890 Other specified postprocedural states; Z79.4 Long term (current) use of insulin; Z79.899 Other long term (current) drug therapy; Z91.048 Other nonmedicinal substance allergy status
CPT/HCPCS: 36415; 71045; 80053; 83880; 84484; 85025; 85379; 93005; 99284; Z7610

== ENCOUNTER 2019-01-11 12:46 | Emergency (ER) | payer MEDICAID ==
[~2019-01-11] VITALS: Ht 165.1 cm; Wt 82.0 kg
[~2019-01-11 12:46] MED LIST changes: -LEVE500T78 PO; +LEVE500T98 PO
[2019-01-11] MEDS ORDERED: HYDROCODONE/ACETAMINOPHEN 5/325MG TABLET PO ONE (13:30)
[2019-01-11] MEDS ORDERED: ENALAPRIL 2.5MG/2ML VIAL 2ML IV ONE (14:15)
[2019-01-11] MEDS ORDERED: ENALAPRIL 1.25MG/ML VIAL 1ML IV NR (16:00)
[2019-01-11 16:38] LABS: CHLORIDE 107 mEq/L (98-107)
[2019-01-11 16:39] LABS: BASOPHILS % 0.7 % (0.0-2.0); EOSINOPHILS % 2.2 % (0.0-5.0); HEMATOCRIT. 26.5 % (36.0-48.0); LYMPHOCYTES % 18.9 % (20.0-50.0); MEAN CORPUSCULAR HEMOGLOBIN 30.2 pg (28.0-32.0); MEAN CORPUSCULAR VOLUME 89.4 fL (81.0-99.0); MONOCYTES % 8.9 % (2.0-8.0); NEUTROPHILS % 69.3 % (40.0-76.0); PLATELET 190 x1000/uL (130-400); RED BLOOD CELL COUNT 2.97 mill/uL (4.2-5.4)
[2019-01-11 16:40] LABS: PARTIAL THROMBOPLASTIN TIME 26.1 sec (23.4-31.0); PROTHROMBIN TIME 10.7 sec (9.6-11.0)
[2019-01-11 17:30] VITALS: BP 134/62
[2019-01-14] MEDS ORDERED: HYDR100T26 MT (14:38)
[2019-01-14] MEDS ORDERED: OMEP10CA5 MT (14:38)
[2019-01-14] MEDS ORDERED: CLON-457 MT (14:39)
[2019-01-14] MEDS ORDERED: LORA1TAB MT (14:39)
[2019-01-14] MEDS ORDERED: DOCU-272 MT (14:40)
[2019-01-14] MEDS ORDERED: LOSA100T32 MT (14:40)
[2019-01-14] MEDS ORDERED: ESTR0.3T3 MT (14:41)
[2019-01-14] MEDS ORDERED: CARV12.545 MT (14:41)
[2019-01-14] MEDS ORDERED: LEVO25TA7 MT (14:41)
== END 2019-01-11 18:00 | disposition home or self-care (01) ==
LOC: ER 12:46
DX: S16.1XXA Strain of muscle, fascia and tendon at neck level, initial encounter (principal); S46.812A Strain of other muscles, fascia and tendons at shoulder and upper arm level, left arm, initial encounter; S00.83XA Contusion of other part of head, initial encounter; E11.22 Type 2 diabetes mellitus with diabetic chronic kidney disease; I12.0 Hypertensive chronic kidney disease with stage 5 chronic kidney disease or end stage renal disease; N18.6 End stage renal disease; Z99.2 Dependence on renal dialysis; Z91.14 Patient's other noncompliance with medication regimen; Z98.890 Other specified postprocedural states; Z79.4 Long term (current) use of insulin; Z79.899 Other long term (current) drug therapy; Z88.8 Allergy status to other drugs, medicaments and biological substances; W01.0XXA Fall on same level from slipping, tripping and stumbling without subsequent striking against object, initial encounter; Y93.89 Activity, other specified; Y92.89 Other specified places as the place of occurrence of the external cause; Y99.8 Other external cause status
CPT/HCPCS: 36415; 70450; 71045; 72125; 73030; 73060; 80048; 84484; 85025; 85610; 85730; 93005; 93971; 99284; J3490

== ENCOUNTER 2019-01-23 14:27 | Emergency (ER) | payer MEDICAID ==
[~2019-01-23] VITALS: Ht 170.2 cm; Wt 86.0 kg
[~2019-01-23 14:27] MED LIST changes: +CARV12.545 MT; +CLON-457 MT; +DOCU-272 MT; +ESTR0.3T3 MT; +HYDR100T26 MT; +LEVO25TA7 MT; +LORA1TAB MT; +LOSA100T32 MT; +OMEP10CA5 MT
[2019-01-23 15:02] LABS: BASOPHILS % 0.5 % (0.0-2.0); EOSINOPHILS % 3.5 % (0.0-5.0); HEMATOCRIT. 25.5 % (36.0-48.0); HEMOGLOBIN. 8.7 g/dL (12.0-16.0); LYMPHOCYTES % 15.6 % (20.0-50.0); MEAN CORPUSCULAR HEMOGLOBIN 29.9 pg (28.0-32.0); MEAN CORPUSCULAR VOLUME 87.6 fL (81.0-99.0); MEAN PLATELET VOLUME 9.2 fl (7.4-10.4); MONOCYTES % 10.5 % (2.0-8.0); NEUTROPHILS % 69.9 % (40.0-76.0); PLATELET 227 x1000/uL (130-400); RED BLOOD CELL COUNT 2.91 mill/uL (4.2-5.4); RED CELL DISTRIBUTION WIDTH 14.1 % (11.6-14.6)
[2019-01-23] MEDS ORDERED: DIPHENHYDRAMINE 25MG CAPSULE PO ONE (17:30)
[2019-01-23] MEDS ORDERED: OXYCODONE HCL/ACETAMINOPHEN 5/325MG TABLET PO ONE (17:30)
[2019-01-23] MEDS ORDERED: METOCLOPRAMIDE HCL 10MG TABLET PO ONE (17:30)
[2019-01-23 19:00] VITALS: BP 190/81
== END 2019-01-23 19:30 | disposition home or self-care (01) ==
LOC: ER 14:27
DX: S09.8XXA Other specified injuries of head, initial encounter (principal); S16.1XXA Strain of muscle, fascia and tendon at neck level, initial encounter; D64.9 Anemia, unspecified; I12.9 Hypertensive chronic kidney disease with stage 1 through stage 4 chronic kidney disease, or unspecified chronic kidney disease; E11.22 Type 2 diabetes mellitus with diabetic chronic kidney disease; N18.9 Chronic kidney disease, unspecified; Z79.4 Long term (current) use of insulin; Z86.73 Personal history of transient ischemic attack (TIA), and cerebral infarction without residual deficits; W06.XXXA Fall from bed, initial encounter; Y93.89 Activity, other specified; Y92.9 Unspecified place or not applicable
CPT/HCPCS: 36415; 70450; 72125; 80048; 85025; 99284; J8597; Q0163

== ENCOUNTER 2019-02-22 10:12 | Emergency (ER) | payer MEDICAID ==
[~2019-02-22] VITALS: Ht 162.6 cm; Wt 113.0 kg
[~2019-02-22 10:12] MED LIST changes: +FAMO20TA8 PO; +P20 MT
[2019-02-22 11:56] LABS: BASOPHILS % 0.6 % (0.0-2.0); EOSINOPHILS % 3.3 % (0.0-5.0); HEMOGLOBIN. 9.3 g/dL (12.0-16.0); LYMPHOCYTES % 24.8 % (20.0-50.0); MEAN CORPUSCULAR HEMOGLOBIN 29.7 pg (28.0-32.0); MEAN CORPUSCULAR VOLUME 89.3 fL (81.0-99.0); MEAN PLATELET VOLUME 9.4 fl (7.4-10.4); MONOCYTES % 12.4 % (2.0-8.0); NEUTROPHILS % 58.9 % (40.0-76.0); PLATELET 217 x1000/uL (130-400); RED BLOOD CELL COUNT 3.14 mill/uL (4.2-5.4); RED CELL DISTRIBUTION WIDTH 14.5 % (11.6-14.6)
[2019-02-22] MEDS ORDERED: ACETAMINOPHEN WITH CODEINE 300/30MG TABLET PO ONE (12:00)
[2019-02-22 12:04] LABS: CHLORIDE 108 mEq/L (98-107)
[2019-02-22 13:20] VITALS: BP 168/79
== END 2019-02-22 13:45 | disposition home or self-care (01) ==
LOC: ER 10:12
DX: R53.1 Weakness (principal); I12.0 Hypertensive chronic kidney disease with stage 5 chronic kidney disease or end stage renal disease; E11.22 Type 2 diabetes mellitus with diabetic chronic kidney disease; N18.6 End stage renal disease; Z99.2 Dependence on renal dialysis; Z98.890 Other specified postprocedural states; Z79.4 Long term (current) use of insulin; Z79.899 Other long term (current) drug therapy; Z91.048 Other nonmedicinal substance allergy status
CPT/HCPCS: 36415; 71045; 82962; 93005; 99284

== ENCOUNTER 2019-03-21 05:11 | Inpatient (IN) | payer MEDICAID ==
[~2019-03-21] VITALS: Ht 152.4 cm; Wt 74.8 kg
[~2019-03-21 05:11] MED LIST changes: -LOSA100T32 MT
[2019-03-21] MEDS ORDERED: ONDANSETRON HCL 4MG/2ML INJ IV STA (05:22)
[2019-03-21] MEDS ORDERED: ASPIRIN 81MG TABLET PO ONE (05:30)
[2019-03-21 05:54] LABS: BASOPHILS % 0.6 % (0.0-2.0); EOSINOPHILS % 2.8 % (0.0-5.0); HEMATOCRIT. 29.5 % (36.0-48.0); HEMOGLOBIN. 9.8 g/dL (12.0-16.0); LYMPHOCYTES % 11.4 % (20.0-50.0); MEAN CORPUSCULAR HEMOGLOBIN 29.6 pg (28.0-32.0); MEAN CORPUSCULAR VOLUME 89.2 fL (81.0-99.0); MEAN PLATELET VOLUME 9.1 fl (7.4-10.4); MONOCYTES % 6.2 % (2.0-8.0); PLATELET 305 x1000/uL (130-400); RED BLOOD CELL COUNT 3.31 mill/uL (4.2-5.4); RED CELL DISTRIBUTION WIDTH 14.8 % (11.6-14.6)
[2019-03-21 06:00] LABS: CHLORIDE 106 mEq/L (98-107)
[2019-03-21] MEDS ORDERED: FUROSEMIDE 40MG/4ML VIAL IVP ONE (06:15)
[2019-03-21 08:42] LABS: BG BASE EXCESS -5.5 mmol/L (-2.0-2.0); BG CARBOXYHEMOGLOBIN 0.3 % (0.5-1.5); BG DEOXYHEMOGLOBIN 1.9 % (0.0-5.0); BG FRACTION INSPIRED OXYGEN 32; BG HCO3 ACT 20.6 mmol/L (22.0-26.0); BG METHEMOGLOBIN 0.3 % (0.0-1.5); BG OXYGEN SATURATION 98.1 % (92.0-98.5); BG OXYHEMOGLOBIN 97.5 % (94.0-97.0); BG PH 7.299 (7.350-7.450); BG SAMPLE SITE RIGHT RADIAL; BG TOTAL HEMOGLOBIN 9.8 g/dL (12.0-18.0); BG VENT MODE NASAL CANNULA
[2019-03-21] MEDS ORDERED: HYDRALAZINE 20MG/ML VIAL IV PRN (08:45)
[2019-03-21 11:05] VITALS: BP 163/66
[2019-03-21 12:00] VITALS: BP_SYST 163; BP_SYST 171; BP_DIAS 66; BP_DIAS 68
[2019-03-21] MEDS: MORPHINE SULFATE 4 MG/ML CPJ (NOT FOR IM USE) IV PRN (12:46)
[2019-03-21 16:00] VITALS: BP 111/44
[2019-03-21] MEDS ORDERED: DEXTROSE 50% WATER 50ML SYRINGE IV PRN (16:45)
[2019-03-21] MEDS: DOCUSATE SODIUM 100MG CAPSULE PO SCH (17:02)
[2019-03-21] MEDS: CARVEDILOL 12.5MG TABLET PO SCH (17:02)
[2019-03-21] MEDS: FAMOTIDINE 20MG TABLET PO SCH ×2 (17:03→17:07)
[2019-03-21] MEDS: BLOOD SUGAR DIAGNOSTIC STRIP TEST SCH ×2 (17:11→21:00)
[2019-03-21] MEDS: INSULIN LISPRO 100 UNITS/ML SUBCUT SCH ×2 (17:15→21:00)
[2019-03-21 20:00] VITALS: BP 133/58
[2019-03-21] MEDS: LEVETIRACETAM 500MG TABLET PO SCH (21:00)
[2019-03-21] MEDS: ATORVASTATIN CALCIUM 40MG TABLET PO SCH (21:00)
[2019-03-21] MEDS: HEPARIN 5000 UNITS/ML VIAL SUBCUT SCH (21:00)
[2019-03-21] MEDS: HYDRALAZINE HCL 100MG TABLET PO SCH (22:00)
[2019-03-21] MEDS: CLONIDINE 0.1MG TABLET PO SCH (22:00)
[2019-03-21] MEDS: GABAPENTIN 300MG CAPSULE PO SCH (22:00)
[2019-03-21] MEDS: INSULIN GLARGINE UD 100 UNITS/ML SYR SUBCUT SCH (22:00)
[2019-03-22] VITALS: BP 118/61
[2019-03-22 04:00] VITALS: BP 154/59
[2019-03-22] MEDS: CLONIDINE 0.1MG TABLET PO SCH ×3 (05:35→20:53)
[2019-03-22] MEDS: HYDRALAZINE HCL 100MG TABLET PO SCH ×3 (05:35→20:52)
[2019-03-22] MEDS: GABAPENTIN 300MG CAPSULE PO SCH ×3 (05:35→20:51)
[2019-03-22 06:47] LABS: BASOPHILS % 0.6 % (0.0-2.0); EOSINOPHILS % 3.1 % (0.0-5.0); HEMATOCRIT. 26.3 % (36.0-48.0); HEMOGLOBIN. 8.7 g/dL (12.0-16.0); LYMPHOCYTES % 16.6 % (20.0-50.0); MEAN CORPUSCULAR HEMOGLOBIN 29.4 pg (28.0-32.0); MEAN CORPUSCULAR VOLUME 88.1 fL (81.0-99.0); MEAN PLATELET VOLUME 8.8 fl (7.4-10.4); MONOCYTES % 10.5 % (2.0-8.0); NEUTROPHILS % 69.2 % (40.0-76.0); PLATELET 212 x1000/uL (130-400); RED BLOOD CELL COUNT 2.98 mill/uL (4.2-5.4); RED CELL DISTRIBUTION WIDTH 14.5 % (11.6-14.6)
[2019-03-22] MEDS: BLOOD SUGAR DIAGNOSTIC STRIP TEST SCH ×4 (07:43→21:05)
[2019-03-22] MEDS: INSULIN LISPRO 100 UNITS/ML SUBCUT SCH ×4 (07:45→21:00)
[2019-03-22 07:55] VITALS: BP 122/47
[2019-03-22] MEDS: CARVEDILOL 12.5MG TABLET PO SCH ×2 (08:42→17:19)
[2019-03-22] MEDS: LEVOTHYROXINE SODIUM 25MCG TABLET PO SCH (08:42)
[2019-03-22] MEDS: ESTROGENS CONJUGATED 0.3 MG PO SCH (08:42)
[2019-03-22] MEDS: CALCITRIOL 0.25MCG CAPSULE PO SCH (08:42)
[2019-03-22] MEDS: LEVETIRACETAM 500MG TABLET PO SCH ×2 (08:42→20:51)
[2019-03-22] MEDS: HEPARIN 5000 UNITS/ML VIAL SUBCUT SCH ×2 (08:42→20:53)
[2019-03-22] MEDS: DOCUSATE SODIUM 100MG CAPSULE PO SCH ×2 (08:42→17:18)
[2019-03-22] MEDS: INSULIN GLARGINE UD 100 UNITS/ML SYR SUBCUT SCH ×2 (09:24→21:58)
[2019-03-22 12:00] VITALS: BP 114/66
[2019-03-22 16:13] VITALS: BP 127/59
[2019-03-22] MEDS: FAMOTIDINE 20MG TABLET PO SCH (17:20)
[2019-03-22 20:35] VITALS: BP 111/50
[2019-03-22] MEDS: ATORVASTATIN CALCIUM 40MG TABLET PO SCH (20:52)
[2019-03-22] MEDS: MORPHINE SULFATE 4 MG/ML CPJ (NOT FOR IM USE) IV PRN (23:03)
[2019-03-23] VITALS: BP 113/53
[2019-03-23 04:00] VITALS: BP 143/68
[2019-03-23] MEDS: GABAPENTIN 300MG CAPSULE PO SCH ×3 (04:56→22:06)
[2019-03-23] MEDS: CLONIDINE 0.1MG TABLET PO SCH ×3 (04:56→22:06)
[2019-03-23] MEDS: HYDRALAZINE HCL 100MG TABLET PO SCH ×3 (04:56→22:06)
[2019-03-23] MEDS: MORPHINE SULFATE 4 MG/ML CPJ (NOT FOR IM USE) IV PRN ×2 (05:45→21:18)
[2019-03-23] MEDS: BLOOD SUGAR DIAGNOSTIC STRIP TEST SCH ×4 (07:40→21:16)
[2019-03-23 08:00] VITALS: BP 133/48
[2019-03-23] MEDS: INSULIN LISPRO 100 UNITS/ML SUBCUT SCH ×4 (08:10→21:16)
[2019-03-23 09:03] LABS: BASOPHILS % 0.6 % (0.0-2.0); EOSINOPHILS % 2.8 % (0.0-5.0); HEMATOCRIT. 27.6 % (36.0-48.0); MEAN CORPUSCULAR HEMOGLOBIN 29.3 pg (28.0-32.0); MEAN CORPUSCULAR VOLUME 89.4 fL (81.0-99.0); MONOCYTES % 11.8 % (2.0-8.0); NEUTROPHILS % 58.8 % (40.0-76.0); PLATELET 218 x1000/uL (130-400); RED BLOOD CELL COUNT 3.09 mill/uL (4.2-5.4); RED CELL DISTRIBUTION WIDTH 14.7 % (11.6-14.6)
[2019-03-23 09:20] LABS: PHOSPHORUS 6.6 mg/dL (2.5-4.9)
[2019-03-23] MEDS: ESTROGENS CONJUGATED 0.3 MG PO SCH (09:22)
[2019-03-23] MEDS: CARVEDILOL 12.5MG TABLET PO SCH ×2 (09:22→17:00)
[2019-03-23] MEDS: CALCITRIOL 0.25MCG CAPSULE PO SCH (09:22)
[2019-03-23] MEDS: LEVOTHYROXINE SODIUM 25MCG TABLET PO SCH (09:22)
[2019-03-23] MEDS: DOCUSATE SODIUM 100MG CAPSULE PO SCH ×2 (09:23→17:24)
[2019-03-23] MEDS: LEVETIRACETAM 500MG TABLET PO SCH ×2 (09:23→21:15)
[2019-03-23] MEDS: HEPARIN 5000 UNITS/ML VIAL SUBCUT SCH ×2 (09:31→21:16)
[2019-03-23] MEDS: INSULIN GLARGINE UD 100 UNITS/ML SYR SUBCUT SCH ×2 (12:52→22:18)
[2019-03-23 13:04] LABS: TOTAL IRON BINDING CAPACITY 191 ug/dL (250-450)
[2019-03-23] MEDS ORDERED: EPOETIN ALFA 10000UNITS/ML VIAL SUBCUT NR (14:00)
[2019-03-23 15:35] VITALS: BP 121/54
[2019-03-23] MEDS: FAMOTIDINE 20MG TABLET PO SCH (17:24)
[2019-03-23 20:00] VITALS: BP 137/49
[2019-03-23] MEDS: ATORVASTATIN CALCIUM 40MG TABLET PO SCH (21:15)
[2019-03-24] VITALS: BP 135/50
[2019-03-24 04:00] VITALS: BP 122/52
[2019-03-24] MEDS: GABAPENTIN 300MG CAPSULE PO SCH ×3 (06:12→21:38)
[2019-03-24] MEDS: HYDRALAZINE HCL 100MG TABLET PO SCH ×3 (06:12→21:38)
[2019-03-24] MEDS: CLONIDINE 0.1MG TABLET PO SCH ×3 (06:12→21:49)
[2019-03-24 06:37] LABS: BASOPHILS % 0.7 % (0.0-2.0); EOSINOPHILS % 3.9 % (0.0-5.0); HEMATOCRIT. 25.2 % (36.0-48.0); HEMOGLOBIN. 8.5 g/dL (12.0-16.0); LYMPHOCYTES % 31.4 % (20.0-50.0); MEAN CORPUSCULAR HEMOGLOBIN 29.4 pg (28.0-32.0); MEAN CORPUSCULAR VOLUME 87.6 fL (81.0-99.0); MONOCYTES % 13.4 % (2.0-8.0); NEUTROPHILS % 50.6 % (40.0-76.0); PLATELET 186 x1000/uL (130-400); RED BLOOD CELL COUNT 2.88 mill/uL (4.2-5.4); RED CELL DISTRIBUTION WIDTH 14.5 % (11.6-14.6)
[2019-03-24 07:55] VITALS: BP 103/40
[2019-03-24] MEDS: LEVOTHYROXINE SODIUM 25MCG TABLET PO SCH (08:09)
[2019-03-24] MEDS: INSULIN LISPRO 100 UNITS/ML SUBCUT SCH ×4 (08:10→21:00)
[2019-03-24] MEDS: CALCITRIOL 0.25MCG CAPSULE PO SCH (08:10)
[2019-03-24] MEDS: LEVETIRACETAM 500MG TABLET PO SCH ×2 (08:10→21:38)
[2019-03-24] MEDS: DOCUSATE SODIUM 100MG CAPSULE PO SCH ×3 (08:10→21:38)
[2019-03-24] MEDS: ESTROGENS CONJUGATED 0.3 MG PO SCH (08:11)
[2019-03-24] MEDS: CARVEDILOL 12.5MG TABLET PO SCH ×2 (08:12→17:42)
[2019-03-24] MEDS: HEPARIN 5000 UNITS/ML VIAL SUBCUT SCH ×2 (08:13→21:39)
[2019-03-24] MEDS: BLOOD SUGAR DIAGNOSTIC STRIP TEST SCH ×4 (08:13→21:00)
[2019-03-24] MEDS: MORPHINE SULFATE 4 MG/ML CPJ (NOT FOR IM USE) IV PRN (08:59)
[2019-03-24] MEDS ORDERED: LACTULOSE 20G/30ML UDC PO PRN (10:15)
[2019-03-24] MEDS ORDERED: ONDANSETRON HCL 4MG/2ML INJ IV PRN (10:15)
[2019-03-24] MEDS: INSULIN GLARGINE UD 100 UNITS/ML SYR SUBCUT SCH ×2 (10:21→22:53)
[2019-03-24 11:43] VITALS: BP 138/53
[2019-03-24 16:04] VITALS: BP 117/49
[2019-03-24] MEDS ORDERED: MORPHINE SULFATE 2 MG/ML CPJ (NOT FOR IM USE) IV PRN (17:45)
[2019-03-24] MEDS: FAMOTIDINE 20MG TABLET PO SCH (17:50)
[2019-03-24] MEDS ORDERED: MINERAL OIL ENEMA 133ML PR NR (18:30)
[2019-03-24 20:20] VITALS: BP 107/52
[2019-03-24] MEDS: ATORVASTATIN CALCIUM 40MG TABLET PO SCH (21:38)
[2019-03-25 00:05] VITALS: BP 125/56
[2019-03-25 04:00] VITALS: BP 141/58
[2019-03-25] MEDS: GABAPENTIN 300MG CAPSULE PO SCH ×2 (05:46→13:00)
[2019-03-25] MEDS: CLONIDINE 0.1MG TABLET PO SCH ×2 (05:46→13:00)
[2019-03-25] MEDS: HYDRALAZINE HCL 100MG TABLET PO SCH ×2 (05:47→13:00)
[2019-03-25] MEDS: BLOOD SUGAR DIAGNOSTIC STRIP TEST SCH ×4 (05:53→20:22)
[2019-03-25 06:32] LABS: BASOPHILS % 0.7 % (0.0-2.0); EOSINOPHILS % 4.6 % (0.0-5.0); HEMATOCRIT. 25.8 % (36.0-48.0); HEMOGLOBIN. 8.6 g/dL (12.0-16.0); LYMPHOCYTES % 21.6 % (20.0-50.0); MEAN CORPUSCULAR HEMOGLOBIN 29.2 pg (28.0-32.0); MEAN CORPUSCULAR VOLUME 87.9 fL (81.0-99.0); MEAN PLATELET VOLUME 9.4 fl (7.4-10.4); MONOCYTES % 12.4 % (2.0-8.0); NEUTROPHILS % 60.7 % (40.0-76.0); PLATELET 173 x1000/uL (130-400); RED BLOOD CELL COUNT 2.94 mill/uL (4.2-5.4); RED CELL DISTRIBUTION WIDTH 14.1 % (11.6-14.6)
[2019-03-25 08:00] VITALS: BP 127/45
[2019-03-25] MEDS: INSULIN LISPRO 100 UNITS/ML SUBCUT SCH ×3 (08:06→17:14)
[2019-03-25] MEDS: DOCUSATE SODIUM 100MG CAPSULE PO SCH ×4 (09:00→20:22)
[2019-03-25] MEDS: CARVEDILOL 12.5MG TABLET PO SCH ×2 (10:09→17:00)
[2019-03-25] MEDS: HEPARIN 5000 UNITS/ML VIAL SUBCUT SCH (10:10)
[2019-03-25] MEDS: LEVOTHYROXINE SODIUM 25MCG TABLET PO SCH (10:10)
[2019-03-25] MEDS: LEVETIRACETAM 500MG TABLET PO SCH ×2 (10:10→20:21)
[2019-03-25] MEDS: CALCITRIOL 0.25MCG CAPSULE PO SCH (10:10)
[2019-03-25] MEDS: ESTROGENS CONJUGATED 0.3 MG PO SCH (10:15)
[2019-03-25] MEDS: INSULIN GLARGINE UD 100 UNITS/ML SYR SUBCUT SCH (10:17)
[2019-03-25 11:52] VITALS: BP 132/54
[2019-03-25 14:43] VITALS: BP 132/54
[2019-03-25 16:06] VITALS: BP 106/42
[2019-03-25] MEDS: FAMOTIDINE 20MG TABLET PO SCH (17:00)
[2019-03-25] MEDS: ATORVASTATIN CALCIUM 40MG TABLET PO SCH (20:21)
[2019-03-25] MEDS ORDERED: EPOETIN ALFA 10000UNITS/ML VIAL SUBCUT SCH (21:00)
== END 2019-03-25 20:50 | disposition home or self-care (01) | DRG 133 ==
LOC: ER 05:26 → EDBEDREQSVC 06:36 → EDBEDREQTM 06:36 → EDBEDREQ 06:36 → EDBEDREQSVC 08:27 → 7WST 08:30 → EDBEDREQSVC 08:34 → ENRESERV 08:36
PROVIDERS: ADMIT Internal Medicine; ATTEND Internal Medicine
PROC: 5A1D70Z Performance of Urinary Filtration, Intermittent, Less than 6 Hours Per Day (ICD-10-PCS; principal; 2019-03-21)
PROC: 5A09357 Assistance with Respiratory Ventilation, Less than 24 Consecutive Hours, Continuous Positive Airway Pressure (ICD-10-PCS; 2019-03-21)
PROC: 5A1D70Z Performance of Urinary Filtration, Intermittent, Less than 6 Hours Per Day (ICD-10-PCS; 2019-03-22)
PROC: 5A1D70Z Performance of Urinary Filtration, Intermittent, Less than 6 Hours Per Day (ICD-10-PCS; 2019-03-24)
DX: J96.01 Acute respiratory failure with hypoxia (principal); I13.2 Hypertensive heart and chronic kidney disease with heart failure and with stage 5 chronic kidney disease, or end stage renal disease; N18.6 End stage renal disease; E11.22 Type 2 diabetes mellitus with diabetic chronic kidney disease; E78.5 Hyperlipidemia, unspecified; E03.9 Hypothyroidism, unspecified; G40.909 Epilepsy, unspecified, not intractable, without status epilepticus; I50.9 Heart failure, unspecified; Z86.73 Personal history of transient ischemic attack (TIA), and cerebral infarction without residual deficits; Z99.2 Dependence on renal dialysis; F41.8 Other specified anxiety disorders; K59.00 Constipation, unspecified; Z90.710 Acquired absence of both cervix and uterus; Z91.15 Patient's noncompliance with renal dialysis; Z88.9 Allergy status to unspecified drugs, medicaments and biological substances; Z79.84 Long term (current) use of oral hypoglycemic drugs
CPT/HCPCS: 36415; 36600; 71045; 74018; 80048; 82375; 82805; 82962; 83540; 83550; 83605; 83735; 83880; 84100; 84484; 93005; 94660; 96374; 97162; 99285; J0360; J0885; J1644; J1815; J1940; J2270; J2405

== ENCOUNTER 2019-05-11 09:44 | Inpatient (IN) | payer MEDICAID ==
[~2019-05-11] VITALS: Ht 152.4 cm; Wt 75.3 kg
[2019-05-11] MEDS ORDERED: ONDANSETRON HCL 4MG/2ML INJ IV STA (10:44)
[2019-05-11] MEDS ORDERED: MORPHINE SULFATE 4 MG/ML CPJ (NOT FOR IM USE) IV STA (10:44)
[2019-05-11 11:16] LABS: CHLORIDE 104 mEq/L (98-107)
[2019-05-11 11:18] LABS: BASOPHILS % 0.8 % (0.0-2.0); EOSINOPHILS % 1.7 % (0.0-5.0); HEMATOCRIT. 36.4 % (36.0-48.0); HEMOGLOBIN. 12.1 g/dL (12.0-16.0); MEAN CORPUSCULAR HEMOGLOBIN 29.1 pg (28.0-32.0); MEAN CORPUSCULAR VOLUME 87.3 fL (81.0-99.0); MONOCYTES % 8.5 % (2.0-8.0); RED BLOOD CELL COUNT 4.17 mill/uL (4.2-5.4); RED CELL DISTRIBUTION WIDTH 14.6 % (11.6-14.6)
[2019-05-11 11:48] LABS: PLATELET 136 x1000/uL (130-400)
[2019-05-11 11:49] LABS: PLATELET ESTIMATE NORMAL
[2019-05-11 14:39] LABS: CLARITY URINE TURBID (CLEAR); COLOR URINE YELLOW (YELLOW); KETONES URINE TRACE (NEGATIVE); LEUKOCYTE ESTERASE URINE NEGATIVE (NEGATIVE); NITRITE URINE NEGATIVE (NEGATIVE); OCCULT BLOOD URINE NEGATIVE (NEGATIVE); PH URINE 6.5 (4.5-8.0); PROTEIN URINE 3+ (NEGATIVE); SPECIFIC GRAVITY URINE 1.021 (1.005-1.030)
[2019-05-11 15:45] VITALS: BP 173/75
[2019-05-11 15:54] VITALS: BP 173/75
[2019-05-11] MEDS ORDERED: DEXTROSE 50% WATER 50ML SYRINGE IV PRN (17:30)
[2019-05-11] MEDS ORDERED: CLONIDINE 0.2MG TABLET PO PRN (17:30)
[2019-05-11] MEDS ORDERED: INFLUENZA VIRUS VACCINE(AFLURIA) 0.5ML SYR IM ONE (18:00)
[2019-05-11] MEDS: INSULIN LISPRO 100 UNITS/ML SUBCUT SCH ×2 (18:44→21:32)
[2019-05-11] MEDS: ENOXAPARIN 30MG/0.3ML SYR SUBCUT SCH (18:45)
[2019-05-11] MEDS: HYDROCODONE/ACETAMINOPHEN 5/325MG TABLET PO PRN (19:35)
[2019-05-11 20:00] VITALS: BP 110/48
[2019-05-11] MEDS ORDERED: MEDICATION NOT ON FORMULARY EA (Simvastatin 40 MG) PO SCH (21:00)
[2019-05-11] MEDS: GABAPENTIN 300MG CAPSULE PO SCH (21:25)
[2019-05-11] MEDS: LEVETIRACETAM 500MG TABLET PO SCH (21:25)
[2019-05-11] MEDS: HYDRALAZINE HCL 100MG TABLET PO SCH (21:26)
[2019-05-11] MEDS: CARVEDILOL 12.5MG TABLET PO SCH (21:26)
[2019-05-11] MEDS: BLOOD SUGAR DIAGNOSTIC STRIP TEST SCH (21:26)
[2019-05-11] MEDS: ATORVASTATIN CALCIUM 20MG TABLET PO SCH (21:26)
[2019-05-12] VITALS: BP 105/44
[2019-05-12] MEDS: HYDROCODONE/ACETAMINOPHEN 5/325MG TABLET PO PRN ×4 (00:36→20:23)
[2019-05-12] MEDS: LORAZEPAM 1MG TABLET PO PRN (01:33)
[2019-05-12 04:00] VITALS: BP 111/48
[2019-05-12] MEDS: HYDRALAZINE HCL 100MG TABLET PO SCH ×3 (05:52→21:17)
[2019-05-12] MEDS: GABAPENTIN 300MG CAPSULE PO SCH ×3 (05:56→21:16)
[2019-05-12] MEDS: OMEPRAZOLE 20MG CAPSULE EXTENDED RELEASE PO SCH (05:58)
[2019-05-12] MEDS: BLOOD SUGAR DIAGNOSTIC STRIP TEST SCH ×4 (06:25→20:55)
[2019-05-12] MEDS: INSULIN LISPRO 100 UNITS/ML SUBCUT SCH ×4 (06:26→21:09)
[2019-05-12 06:45] LABS: EOSINOPHILS % 2.7 % (0.0-5.0); HEMATOCRIT. 35.1 % (36.0-48.0); HEMOGLOBIN. 11.5 g/dL (12.0-16.0); LYMPHOCYTES % 32.8 % (20.0-50.0); MEAN CORPUSCULAR HEMOGLOBIN 28.5 pg (28.0-32.0); MEAN CORPUSCULAR VOLUME 86.8 fL (81.0-99.0); MEAN PLATELET VOLUME 9.5 fl (7.4-10.4); MONOCYTES % 11.7 % (2.0-8.0); NEUTROPHILS % 51.8 % (40.0-76.0); PLATELET 240 x1000/uL (130-400); RED BLOOD CELL COUNT 4.05 mill/uL (4.2-5.4); RED CELL DISTRIBUTION WIDTH 14.8 % (11.6-14.6)
[2019-05-12 06:57] LABS: CHLORIDE 102 mEq/L (98-107)
[2019-05-12] MEDS ORDERED: DIPHENHYDRAMINE 50MG/ML VIAL IV PRN (07:15)
[2019-05-12] MEDS ORDERED: ONDANSETRON HCL 4MG/2ML INJ IV PRN (07:15)
[2019-05-12 08:00] VITALS: BP 121/48
[2019-05-12] MEDS: LEVETIRACETAM 500MG TABLET PO SCH ×2 (09:00→21:04)
[2019-05-12] MEDS: CARVEDILOL 12.5MG TABLET PO SCH ×2 (09:00→21:00)
[2019-05-12] MEDS ORDERED: ENOXAPARIN 40MG/0.4ML SYR SUBCUT SCH (09:00)
[2019-05-12 09:19] LABS: T4 FREE 1.35 ng/dL (0.76-1.46)
[2019-05-12 11:57] VITALS: BP 107/44
[2019-05-12 15:37] LABS: CREATINE KINASE 34 IU/L (26-192)
[2019-05-12 15:38] LABS: CREATINE KINASE MB FRACTION < 1.0 ng/mL (0.5-3.6)
[2019-05-12 16:00] VITALS: BP 128/50
[2019-05-12] MEDS: ENOXAPARIN 30MG/0.3ML SYR SUBCUT SCH (17:57)
[2019-05-12 20:00] VITALS: BP 119/49
[2019-05-12] MEDS: ATORVASTATIN CALCIUM 20MG TABLET PO SCH (21:04)
[2019-05-13] VITALS: BP 121/72
[2019-05-13 00:42] LABS: CREATINE KINASE 31 IU/L (26-192)
[2019-05-13 00:43] LABS: CREATINE KINASE MB FRACTION < 1.0 ng/mL (0.5-3.6)
[2019-05-13 04:00] VITALS: BP 158/61
[2019-05-13] MEDS: HYDROCODONE/ACETAMINOPHEN 5/325MG TABLET PO PRN ×2 (04:29→08:40)
[2019-05-13] MEDS: HYDRALAZINE HCL 100MG TABLET PO SCH ×3 (06:18→21:13)
[2019-05-13] MEDS: GABAPENTIN 300MG CAPSULE PO SCH ×3 (06:18→21:13)
[2019-05-13] MEDS: OMEPRAZOLE 20MG CAPSULE EXTENDED RELEASE PO SCH (06:18)
[2019-05-13] MEDS: BLOOD SUGAR DIAGNOSTIC STRIP TEST SCH ×4 (06:26→20:20)
[2019-05-13] MEDS: INSULIN LISPRO 100 UNITS/ML SUBCUT SCH ×4 (06:26→21:24)
[2019-05-13 07:58] LABS: CREATINE KINASE 33 IU/L (26-192); CREATINE KINASE MB FRACTION < 1.0 ng/mL (0.5-3.6)
[2019-05-13 08:00] VITALS: BP 135/53
[2019-05-13] MEDS: LEVETIRACETAM 500MG TABLET PO SCH ×2 (08:38→21:13)
[2019-05-13] MEDS: CARVEDILOL 12.5MG TABLET PO SCH ×2 (09:00→21:13)
[2019-05-13 12:00] VITALS: BP 137/52
[2019-05-13 16:00] VITALS: BP 132/60
[2019-05-13] MEDS: ENOXAPARIN 30MG/0.3ML SYR SUBCUT SCH (18:17)
[2019-05-13 20:16] VITALS: BP 120/60
[2019-05-13] MEDS: LORAZEPAM 1MG TABLET PO PRN (21:12)
[2019-05-13] MEDS: ATORVASTATIN CALCIUM 20MG TABLET PO SCH (21:14)
[2019-05-14] VITALS: BP 107/59
[2019-05-14 04:00] VITALS: BP 126/60
[2019-05-14] MEDS: BLOOD SUGAR DIAGNOSTIC STRIP TEST SCH ×3 (05:40→17:17)
[2019-05-14] MEDS: HYDRALAZINE HCL 100MG TABLET PO SCH ×2 (05:41→13:21)
[2019-05-14] MEDS: OMEPRAZOLE 20MG CAPSULE EXTENDED RELEASE PO SCH (05:41)
[2019-05-14] MEDS: GABAPENTIN 300MG CAPSULE PO SCH ×2 (05:41→13:21)
[2019-05-14] MEDS: INSULIN LISPRO 100 UNITS/ML SUBCUT SCH ×3 (05:48→17:21)
[2019-05-14 08:00] VITALS: BP 134/50
[2019-05-14] MEDS: CARVEDILOL 12.5MG TABLET PO SCH ×2 (09:20→20:46)
[2019-05-14] MEDS: LEVETIRACETAM 500MG TABLET PO SCH ×2 (09:20→20:45)
[2019-05-14] MEDS ORDERED: BISACODYL 10MG SUPP PR SCH (11:30)
[2019-05-14 12:00] VITALS: BP 154/61
[2019-05-14 15:42] VITALS: BP 154/61
[2019-05-14 16:00] VITALS: BP 109/44
[2019-05-14] MEDS ORDERED: NA PHOS,M-B/NA PHOS,DI-BA ENEMA 118ML PR NR (16:30)
[2019-05-14] MEDS: ENOXAPARIN 30MG/0.3ML SYR SUBCUT SCH (17:17)
[2019-05-14] MEDS: ATORVASTATIN CALCIUM 20MG TABLET PO SCH (20:45)
[2019-05-15] MEDS ORDERED: FAMOTIDINE 20MG TABLET PO SCH (07:10)
== END 2019-05-14 20:50 | disposition home or self-care (01) | DRG 194 ==
LOC: ER 09:44 → ENRESERV 13:49 → 8WST 15:03
PROVIDERS: ADMIT Internal Medicine; ATTEND Internal Medicine
PROC: 5A1D70Z Performance of Urinary Filtration, Intermittent, Less than 6 Hours Per Day (ICD-10-PCS; 2019-05-11)
PROC: 5A1D70Z Performance of Urinary Filtration, Intermittent, Less than 6 Hours Per Day (ICD-10-PCS; principal; 2019-05-12)
DX: I13.2 Hypertensive heart and chronic kidney disease with heart failure and with stage 5 chronic kidney disease, or end stage renal disease (principal); N18.6 End stage renal disease; E11.22 Type 2 diabetes mellitus with diabetic chronic kidney disease; E46 Unspecified protein-calorie malnutrition; I50.9 Heart failure, unspecified; G89.29 Other chronic pain; E78.5 Hyperlipidemia, unspecified; E03.9 Hypothyroidism, unspecified; I25.10 Atherosclerotic heart disease of native coronary artery without angina pectoris; G43.909 Migraine, unspecified, not intractable, without status migrainosus; F41.8 Other specified anxiety disorders; G40.909 Epilepsy, unspecified, not intractable, without status epilepticus; K59.00 Constipation, unspecified; Z79.899 Other long term (current) drug therapy; Z82.49 Family history of ischemic heart disease and other diseases of the circulatory system; Z83.3 Family history of diabetes mellitus; I25.2 Old myocardial infarction; Z99.2 Dependence on renal dialysis; Z91.15 Patient's noncompliance with renal dialysis; Z86.73 Personal history of transient ischemic attack (TIA), and cerebral infarction without residual deficits; Z90.710 Acquired absence of both cervix and uterus
CPT/HCPCS: 36415; 71045; 80048; 80061; 81003; 82550; 82553; 82962; 83036; 83880; 84439; 84443; 84484; 85379; 93005; 93306; 93970; 99285; J1650; J1815; J2270; J2405; A4315

== ENCOUNTER 2019-05-20 07:06 | Inpatient (IN) | payer MEDICAID ==
[~2019-05-20] VITALS: Ht 154.9 cm; Wt 79.4 kg
[2019-05-20] MEDS ORDERED: MORPHINE SULFATE 4 MG/ML CPJ (NOT FOR IM USE) IV STA (07:33)
[2019-05-20 08:24] LABS: BASOPHILS % 0.7 % (0.0-2.0); EOSINOPHILS % 1.7 % (0.0-5.0); HEMOGLOBIN. 13.1 g/dL (12.0-16.0); LYMPHOCYTES % 20.7 % (20.0-50.0); MEAN CORPUSCULAR HEMOGLOBIN 28.2 pg (28.0-32.0); MEAN CORPUSCULAR VOLUME 90.4 fL (81.0-99.0); MEAN PLATELET VOLUME 10.4 fl (7.4-10.4); MONOCYTES % 10.4 % (2.0-8.0); NEUTROPHILS % 66.5 % (40.0-76.0); PLATELET 147 x1000/uL (130-400); RED BLOOD CELL COUNT 4.64 mill/uL (4.2-5.4); RED CELL DISTRIBUTION WIDTH 14.9 % (11.6-14.6)
[2019-05-20] MEDS ORDERED: LIDOCAINE HCL 1% 20ML VIAL (Pyxis) INJ ONE (11:26)
[2019-05-20] MEDS ORDERED: SODIUM BICARBONATE 4% (2.4MEQ) 5ML VIAL IV ONE (11:26)
[2019-05-20] MEDS ORDERED: IOHEXOL-300 50 ML BOTTLE IV ONE (11:53)
[2019-05-20] MEDS ORDERED: HYDRALAZINE 20MG/ML VIAL IV ONE (12:45)
[2019-05-20 14:00] VITALS: BP 221/88
[2019-05-20] MEDS: HYDROCODONE/ACETAMINOPHEN 5/325MG TABLET PO PRN ×2 (14:30→21:56)
[2019-05-20] MEDS ORDERED: DEXTROSE 50% WATER 50ML SYRINGE IV PRN (15:30)
[2019-05-20 16:00] VITALS: BP 190/71
[2019-05-20] MEDS: BLOOD SUGAR DIAGNOSTIC STRIP TEST SCH ×2 (16:48→20:59)
[2019-05-20] MEDS: INSULIN LISPRO 100 UNITS/ML SUBCUT SCH ×2 (17:47→21:00)
[2019-05-20] MEDS: MORPHINE SULFATE 2 MG/ML CPJ (NOT FOR IM USE) IV PRN (18:47)
[2019-05-20 20:00] VITALS: BP_SYST 153; BP_SYST 166; BP_DIAS 101; BP_DIAS 70
[2019-05-20] MEDS: ATORVASTATIN CALCIUM 20MG TABLET PO SCH (21:00)
[2019-05-20] MEDS: CARVEDILOL 12.5MG TABLET PO SCH (21:00)
[2019-05-20] MEDS: LEVETIRACETAM 500MG TABLET PO SCH (21:48)
[2019-05-20] MEDS: HYDRALAZINE HCL 100MG TABLET PO SCH (21:49)
[2019-05-21] VITALS (7 sets, daily range): BP systolic 112–178; BP diastolic 48–77
[2019-05-21] MEDS: MORPHINE SULFATE 2 MG/ML CPJ (NOT FOR IM USE) IV PRN ×4 (00:53→19:03)
[2019-05-21] MEDS: HYDROCODONE/ACETAMINOPHEN 5/325MG TABLET PO PRN ×2 (04:51→17:43)
[2019-05-21] MEDS: HYDRALAZINE HCL 100MG TABLET PO SCH ×3 (05:20→21:21)
[2019-05-21] MEDS: BLOOD SUGAR DIAGNOSTIC STRIP TEST SCH ×4 (06:33→20:49)
[2019-05-21] MEDS: OMEPRAZOLE 20MG CAPSULE EXTENDED RELEASE PO SCH (06:40)
[2019-05-21] MEDS: INSULIN LISPRO 100 UNITS/ML SUBCUT SCH ×4 (06:40→21:25)
[2019-05-21] MEDS: LEVOTHYROXINE SODIUM 25MCG TABLET PO SCH (06:40)
[2019-05-21 07:16] LABS: BASOPHILS % 0.8 % (0.0-2.0); EOSINOPHILS % 1.8 % (0.0-5.0); HEMATOCRIT. 31.5 % (36.0-48.0); HEMOGLOBIN. 10.5 g/dL (12.0-16.0); MEAN CORPUSCULAR HEMOGLOBIN 28.3 pg (28.0-32.0); MEAN CORPUSCULAR VOLUME 84.7 fL (81.0-99.0); MEAN PLATELET VOLUME 9.7 fl (7.4-10.4); MONOCYTES % 13.6 % (2.0-8.0); NEUTROPHILS % 66.8 % (40.0-76.0); PLATELET 237 x1000/uL (130-400); RED BLOOD CELL COUNT 3.71 mill/uL (4.2-5.4); RED CELL DISTRIBUTION WIDTH 14.3 % (11.6-14.6)
[2019-05-21] MEDS: CALCITRIOL 0.25MCG CAPSULE PO SCH (08:39)
[2019-05-21] MEDS: LEVETIRACETAM 500MG TABLET PO SCH ×2 (08:39→21:23)
[2019-05-21] MEDS: ESTROGENS CONJUGATED 0.3 MG PO SCH (08:39)
[2019-05-21] MEDS: AMLODIPINE 10MG TABLET PO SCH (08:39)
[2019-05-21] MEDS: CARVEDILOL 12.5MG TABLET PO SCH ×2 (08:40→21:00)
[2019-05-21] MEDS: DOCUSATE SODIUM 100MG CAPSULE PO SCH ×2 (08:40→17:43)
[2019-05-21] MEDS ORDERED: PREDNISONE 20MG TABLET PO SCH (09:00)
[2019-05-21] MEDS ORDERED: TEMAZEPAM 15MG CAPSULE PO PRN (09:00)
[2019-05-21] MEDS: CLONIDINE 0.2MG TABLET PO PRN (10:08)
[2019-05-21] MEDS: ONDANSETRON HCL 4MG/2ML INJ IV PRN (10:08)
[2019-05-21] MEDS: ATORVASTATIN CALCIUM 20MG TABLET PO SCH (21:23)
[2019-05-22] VITALS (7 sets, daily range): BP systolic 118–174; BP diastolic 52–64
[2019-05-22] MEDS: BLOOD SUGAR DIAGNOSTIC STRIP TEST SCH ×4 (05:42→21:05)
[2019-05-22] MEDS: HYDRALAZINE HCL 100MG TABLET PO SCH ×3 (06:00→21:05)
[2019-05-22] MEDS: LEVOTHYROXINE SODIUM 25MCG TABLET PO SCH (06:50)
[2019-05-22] MEDS: OMEPRAZOLE 20MG CAPSULE EXTENDED RELEASE PO SCH (06:51)
[2019-05-22] MEDS: INSULIN LISPRO 100 UNITS/ML SUBCUT SCH ×4 (06:51→21:00)
[2019-05-22 08:05] LABS: BASOPHILS % 0.9 % (0.0-2.0); EOSINOPHILS % 3.4 % (0.0-5.0); HEMATOCRIT. 30.4 % (36.0-48.0); HEMOGLOBIN. 10.1 g/dL (12.0-16.0); LYMPHOCYTES % 24.4 % (20.0-50.0); MEAN CORPUSCULAR HEMOGLOBIN 28.5 pg (28.0-32.0); MEAN CORPUSCULAR VOLUME 85.9 fL (81.0-99.0); MEAN PLATELET VOLUME 9.4 fl (7.4-10.4); MONOCYTES % 12.3 % (2.0-8.0); PLATELET 216 x1000/uL (130-400); RED BLOOD CELL COUNT 3.54 mill/uL (4.2-5.4); RED CELL DISTRIBUTION WIDTH 14.1 % (11.6-14.6)
[2019-05-22] MEDS: AMLODIPINE 10MG TABLET PO SCH (08:14)
[2019-05-22] MEDS: CARVEDILOL 12.5MG TABLET PO SCH ×2 (08:14→21:00)
[2019-05-22] MEDS: MORPHINE SULFATE 2 MG/ML CPJ (NOT FOR IM USE) IV PRN ×2 (08:36→17:01)
[2019-05-22] MEDS ORDERED: TEMAZEPAM 15MG CAPSULE PO PRN (09:00)
[2019-05-22] MEDS ORDERED: LACTULOSE 20G/30ML UDC PO PRN (09:00)
[2019-05-22] MEDS: CALCITRIOL 0.25MCG CAPSULE PO SCH (09:13)
[2019-05-22] MEDS: LEVETIRACETAM 500MG TABLET PO SCH ×2 (09:13→21:00)
[2019-05-22] MEDS: DOCUSATE SODIUM 100MG CAPSULE PO SCH ×2 (09:13→16:55)
[2019-05-22] MEDS: ESTROGENS CONJUGATED 0.3 MG PO SCH (09:13)
[2019-05-22 13:31] LABS: ETHANOL BLOOD < 10 mg/dL
[2019-05-22] MEDS: HYDROCODONE/ACETAMINOPHEN 5/325MG TABLET PO PRN (13:32)
[2019-05-22 13:35] LABS: CREATINE KINASE 45 IU/L (26-192)
[2019-05-22 13:36] LABS: T4 FREE 1.01 ng/dL (0.76-1.46)
[2019-05-22 14:15] LABS: FOLIC ACID (FOLATE) SERUM 9.3 ng/mL (>5.38)
[2019-05-22] MEDS: LACTULOSE 20G/30ML UDC PO SCH ×2 (16:55→21:00)
[2019-05-22] MEDS: ATORVASTATIN CALCIUM 20MG TABLET PO SCH (21:00)
[2019-05-23] VITALS: BP 142/61
[2019-05-23 04:00] VITALS: BP 126/53
[2019-05-23] MEDS: HYDRALAZINE HCL 100MG TABLET PO SCH ×2 (05:30→12:52)
[2019-05-23] MEDS: BLOOD SUGAR DIAGNOSTIC STRIP TEST SCH ×3 (05:31→17:09)
[2019-05-23] MEDS: LEVOTHYROXINE SODIUM 25MCG TABLET PO SCH (05:31)
[2019-05-23 08:00] VITALS: BP 123/60
[2019-05-23] MEDS ORDERED: FAMOTIDINE 20MG TABLET PO SCH (09:00)
[2019-05-23] MEDS: DOCUSATE SODIUM 100MG CAPSULE PO SCH ×2 (09:28→16:58)
[2019-05-23] MEDS: LACTULOSE 20G/30ML UDC PO SCH (09:28)
[2019-05-23] MEDS: LEVETIRACETAM 500MG TABLET PO SCH (09:29)
[2019-05-23] MEDS: ESTROGENS CONJUGATED 0.3 MG PO SCH (09:29)
[2019-05-23] MEDS: CALCITRIOL 0.25MCG CAPSULE PO SCH (09:29)
[2019-05-23] MEDS: AMLODIPINE 10MG TABLET PO SCH (09:29)
[2019-05-23] MEDS: CARVEDILOL 12.5MG TABLET PO SCH (09:30)
[2019-05-23] MEDS: INSULIN LISPRO 100 UNITS/ML SUBCUT SCH ×3 (09:47→17:30)
[2019-05-23] MEDS ORDERED: NA PHOS,M-B/NA PHOS,DI-BA ENEMA 118ML PR NR (10:30)
[2019-05-23 12:00] VITALS: BP 167/65
[2019-05-23] MEDS: ONDANSETRON HCL 4MG/2ML INJ IV PRN (12:48)
[2019-05-23] MEDS: CLONIDINE 0.2MG TABLET PO PRN (12:59)
[2019-05-23 16:00] VITALS: BP 103/58
[2019-05-23 16:46] VITALS: BP 103/58
== END 2019-05-23 17:36 | disposition home or self-care (01) | DRG 425 ==
LOC: ER 07:06 → 8WST 11:34 → EDBEDREQTM 11:41 → EDBEDREQ 11:41 → ENRESERV 12:09
PROVIDERS: ADMIT Internal Medicine; ATTEND Internal Medicine
PROC: 02HV33Z Insertion of Infusion Device into Superior Vena Cava, Percutaneous Approach (ICD-10-PCS; principal; 2019-05-20)
PROC: B5181ZA Fluoroscopy of Superior Vena Cava using Low Osmolar Contrast, Guidance (ICD-10-PCS; 2019-05-20)
PROC: B548ZZA Ultrasonography of Superior Vena Cava, Guidance (ICD-10-PCS; 2019-05-20)
PROC: 5A1D70Z Performance of Urinary Filtration, Intermittent, Less than 6 Hours Per Day (ICD-10-PCS; 2019-05-20)
PROC: 5A1D70Z Performance of Urinary Filtration, Intermittent, Less than 6 Hours Per Day (ICD-10-PCS; 2019-05-21)
PROC: 5A1D70Z Performance of Urinary Filtration, Intermittent, Less than 6 Hours Per Day (ICD-10-PCS; 2019-05-23)
DX: E87.70 Fluid overload, unspecified (principal); I13.2 Hypertensive heart and chronic kidney disease with heart failure and with stage 5 chronic kidney disease, or end stage renal disease; E11.22 Type 2 diabetes mellitus with diabetic chronic kidney disease; N18.6 End stage renal disease; G40.909 Epilepsy, unspecified, not intractable, without status epilepticus; D64.9 Anemia, unspecified; I16.0 Hypertensive urgency; I50.32 Chronic diastolic (congestive) heart failure; E78.00 Pure hypercholesterolemia, unspecified; F32.9 Major depressive disorder, single episode, unspecified; E03.9 Hypothyroidism, unspecified; G89.4 Chronic pain syndrome; R26.9 Unspecified abnormalities of gait and mobility; Z86.73 Personal history of transient ischemic attack (TIA), and cerebral infarction without residual deficits; Z90.710 Acquired absence of both cervix and uterus; Z88.8 Allergy status to other drugs, medicaments and biological substances; Z91.048 Other nonmedicinal substance allergy status; Z99.2 Dependence on renal dialysis; Z91.19 Patient's noncompliance with other medical treatment and regimen; Z91.15 Patient's noncompliance with renal dialysis; Z91.14 Patient's other noncompliance with medication regimen; Z79.4 Long term (current) use of insulin; Z79.899 Other long term (current) drug therapy
CPT/HCPCS: 36415; 36573; 70551; 71045; 72050; 72070; 72100; 72141; 72148; 75820; 76937; 80048; 80051; 80307; 80320; 82310; 82550; 82607; 82746; 82947; 82962; 83036; 83735; 84100; 84439; 84443; 84481; 84484; 86850; 86900; 92523; 92610; 93005; 97162; 97166; 97530; 99285; C1725; C1887; J0360; J1815; J2270; J2405; J3490; Q9967; G0480

== ENCOUNTER 2019-07-02 09:03 | Inpatient (IN) | payer MEDICAID ==
[~2019-07-02] VITALS: Ht 157.5 cm; Wt 67.6 kg
[~2019-07-02 09:03] MED LIST changes: -CARV12.545 MT; +CARV12.545 PO; -CLON-457 MT; +CLON-457 PO; -DOCU-272 MT; +DOCU-272 PO; -ESTR0.3T3 MT; +ESTR0.3T3 PO; -HYDR100T26 MT; +HYDR100T26 PO; -LEVO25TA7 MT; +LEVO25TA7 PO; -LORA1TAB MT; +LORA1TAB PO; -OMEP10CA5 MT; +OMEP10CA5 PO; -P20 MT; +SIMV-46 PO; -SIMV40TA5 PO
[2019-07-02] MEDS ORDERED: ONDANSETRON HCL 4MG/2ML INJ IV STA (10:55)
[2019-07-02] MEDS ORDERED: SODIUM CHLORIDE 0.9% 1,000 ML IV ONE (10:55)
[2019-07-02] MEDS ORDERED: KETOROLAC 30MG/ML VIAL IV STA (10:55)
[2019-07-02 12:02] LABS: EOSINOPHILS % 1.1 % (0.0-5.0); HEMATOCRIT. 28.8 % (36.0-48.0); HEMOGLOBIN. 9.6 g/dL (12.0-16.0); LYMPHOCYTES % 10.7 % (20.0-50.0); MEAN CORPUSCULAR HEMOGLOBIN 27.8 pg (28.0-32.0); MEAN CORPUSCULAR VOLUME 83.7 fL (81.0-99.0); MEAN PLATELET VOLUME 9.4 fl (7.4-10.4); MONOCYTES % 9.6 % (2.0-8.0); NEUTROPHILS % 77.6 % (40.0-76.0); PLATELET 223 x1000/uL (130-400); RED BLOOD CELL COUNT 3.45 mill/uL (4.2-5.4); RED CELL DISTRIBUTION WIDTH 13.9 % (11.6-14.6)
[2019-07-02 12:08] LABS: CHLORIDE 103 mEq/L (98-107)
[2019-07-02] MEDS ORDERED: MORPHINE SULFATE 2 MG/ML CPJ (NOT FOR IM USE) IV NR (17:30)
[2019-07-02 22:00] VITALS: BP 119/71
[2019-07-02] MEDS ORDERED: ZOLPIDEM TARTRATE 5MG TABLET PO PRN (23:15)
[2019-07-02] MEDS ORDERED: ACETAMINOPHEN 325MG TABLET PO PRN (23:15)
[2019-07-02] MEDS ORDERED: DEXTROSE 50% WATER 50ML SYRINGE IV PRN (23:15)
[2019-07-03] VITALS (7 sets, daily range): BP systolic 119–184; BP diastolic 55–80
[2019-07-03] MEDS: BLOOD SUGAR DIAGNOSTIC STRIP TEST SCH ×4 (06:17→21:29)
[2019-07-03] MEDS: INSULIN LISPRO 100 UNITS/ML SUBCUT SCH ×6 (06:17→21:00)
[2019-07-03] MEDS: MORPHINE SULFATE 2 MG/ML CPJ (NOT FOR IM USE) IV PRN (06:19)
[2019-07-03 07:56] LABS: BASOPHILS % 0.7 % (0.0-2.0); EOSINOPHILS % 2.1 % (0.0-5.0); LYMPHOCYTES % 22.4 % (20.0-50.0); MEAN CORPUSCULAR HEMOGLOBIN 27.8 pg (28.0-32.0); MEAN CORPUSCULAR VOLUME 83.9 fL (81.0-99.0); MEAN PLATELET VOLUME 9.4 fl (7.4-10.4); MONOCYTES % 11.8 % (2.0-8.0); PLATELET 234 x1000/uL (130-400); RED BLOOD CELL COUNT 4.09 mill/uL (4.2-5.4); RED CELL DISTRIBUTION WIDTH 14.2 % (11.6-14.6)
[2019-07-03 08:04] LABS: HEMATOCRIT. 34.3 % (36.0-48.0); HEMOGLOBIN. 11.3 g/dL (12.0-16.0)
[2019-07-03] MEDS ORDERED: CARVEDILOL 12.5MG TABLET PO SCH (11:45)
[2019-07-03] MEDS ORDERED: CALCITRIOL 0.25MCG CAPSULE PO SCH (12:00)
[2019-07-03] MEDS ORDERED: HYDROCODONE/ACETAMINOPHEN 5/325MG TABLET PO PRN (12:15)
[2019-07-03] MEDS: ESTROGENS CONJUGATED 0.3 MG PO SCH (12:44)
[2019-07-03] MEDS: GABAPENTIN 300MG CAPSULE PO SCH ×2 (12:44→21:28)
[2019-07-03] MEDS ORDERED: ONDANSETRON HCL 4MG/2ML INJ IV PRN (16:00)
[2019-07-03] MEDS: HYDRALAZINE HCL 100MG TABLET PO SCH ×2 (16:18→21:28)
[2019-07-03] MEDS: HEPARIN 5000 UNITS/ML VIAL SUBCUT SCH ×2 (17:06→21:28)
[2019-07-03] MEDS: FAMOTIDINE 40MG TABLET PO SCH (21:28)
[2019-07-03] MEDS: CLONIDINE 0.1MG TABLET PO SCH (21:28)
[2019-07-03] MEDS: CARVEDILOL 12.5MG TABLET PO SCH (21:29)
[2019-07-04] VITALS: BP 121/52
[2019-07-04 04:00] VITALS: BP 128/61
[2019-07-04] MEDS: HYDRALAZINE HCL 100MG TABLET PO SCH ×3 (06:42→23:55)
[2019-07-04] MEDS: BLOOD SUGAR DIAGNOSTIC STRIP TEST SCH ×4 (06:42→21:52)
[2019-07-04 07:49] LABS: BASOPHILS % 0.7 % (0.0-2.0); EOSINOPHILS % 3.5 % (0.0-5.0); HEMATOCRIT. 31.5 % (36.0-48.0); HEMOGLOBIN. 10.5 g/dL (12.0-16.0); LYMPHOCYTES % 25.3 % (20.0-50.0); MEAN CORPUSCULAR HEMOGLOBIN 28.2 pg (28.0-32.0); MEAN CORPUSCULAR VOLUME 84.6 fL (81.0-99.0); MEAN PLATELET VOLUME 9.3 fl (7.4-10.4); NEUTROPHILS % 58.5 % (40.0-76.0); PLATELET 210 x1000/uL (130-400); RED BLOOD CELL COUNT 3.72 mill/uL (4.2-5.4); RED CELL DISTRIBUTION WIDTH 14.1 % (11.6-14.6)
[2019-07-04 08:00] VITALS: BP 147/61
[2019-07-04] MEDS: INSULIN LISPRO 100 UNITS/ML SUBCUT SCH ×7 (08:10→21:00)
[2019-07-04] MEDS: CARVEDILOL 12.5MG TABLET PO SCH ×2 (08:56→23:55)
[2019-07-04] MEDS: GABAPENTIN 300MG CAPSULE PO SCH ×2 (08:56→23:56)
[2019-07-04] MEDS: HEPARIN 5000 UNITS/ML VIAL SUBCUT SCH ×3 (08:57→23:56)
[2019-07-04] MEDS: CLONIDINE 0.1MG TABLET PO SCH ×2 (08:57→21:00)
[2019-07-04] MEDS: ESTROGENS CONJUGATED 0.3 MG PO SCH (08:57)
[2019-07-04] MEDS ORDERED: CALCITRIOL 0.25MCG CAPSULE PO SCH (09:11)
[2019-07-04 12:00] VITALS: BP 112/59
[2019-07-04] MEDS: MORPHINE SULFATE 2 MG/ML CPJ (NOT FOR IM USE) IV PRN (14:24)
[2019-07-04 16:00] VITALS: BP 126/55
[2019-07-04 20:00] VITALS: BP 129/59
[2019-07-04] MEDS ORDERED: TRAZODONE HCL 50MG TABLET PO SCH (21:00)
[2019-07-04] MEDS: FAMOTIDINE 40MG TABLET PO SCH (23:56)
[2019-07-05] VITALS (7 sets, daily range): BP systolic 100–135; BP diastolic 47–66
[2019-07-05] MEDS: HYDRALAZINE HCL 100MG TABLET PO SCH ×2 (05:58→13:25)
[2019-07-05] MEDS: BLOOD SUGAR DIAGNOSTIC STRIP TEST SCH ×3 (06:04→17:11)
[2019-07-05] MEDS: INSULIN LISPRO 100 UNITS/ML SUBCUT SCH ×6 (07:40→17:11)
[2019-07-05] MEDS: ESTROGENS CONJUGATED 0.3 MG PO SCH (08:49)
[2019-07-05] MEDS: CARVEDILOL 12.5MG TABLET PO SCH (08:49)
[2019-07-05] MEDS: HEPARIN 5000 UNITS/ML VIAL SUBCUT SCH (08:49)
[2019-07-05] MEDS: CLONIDINE 0.1MG TABLET PO SCH (09:08)
[2019-07-05] MEDS: GABAPENTIN 300MG CAPSULE PO SCH (09:08)
[2019-07-05 09:09] LABS: BASOPHILS % 0.7 % (0.0-2.0); EOSINOPHILS % 2.1 % (0.0-5.0); HEMATOCRIT. 33.9 % (36.0-48.0); HEMOGLOBIN. 11.3 g/dL (12.0-16.0); LYMPHOCYTES % 20.1 % (20.0-50.0); MEAN CORPUSCULAR VOLUME 84.1 fL (81.0-99.0); MEAN PLATELET VOLUME 9.4 fl (7.4-10.4); MONOCYTES % 12.9 % (2.0-8.0); NEUTROPHILS % 64.2 % (40.0-76.0); PLATELET 213 x1000/uL (130-400); RED BLOOD CELL COUNT 4.03 mill/uL (4.2-5.4); RED CELL DISTRIBUTION WIDTH 14.3 % (11.6-14.6)
[2019-07-09 06:08] LABS: BARBITURATE SCREEN Negative ug/mL (Cutoff:0.1); BENZODIAZEPINE SCREEN Negative ng/mL (Cutoff:20); OPIATES SCREEN Negative ng/mL (Cutoff:5); PHENCYCLIDINE SCREEN Negative ng/mL (Cutoff:8)
== END 2019-07-05 19:20 | disposition home or self-care (01) | DRG 48 ==
LOC: ER 09:12 → EDBEDREQ 13:05 → ENRESERV 20:36 → 7WST 21:25
PROVIDERS: ADMIT Internal Medicine; ATTEND Internal Medicine
PROC: 5A1D70Z Performance of Urinary Filtration, Intermittent, Less than 6 Hours Per Day (ICD-10-PCS; principal; 2019-07-03)
PROC: 5A1D70Z Performance of Urinary Filtration, Intermittent, Less than 6 Hours Per Day (ICD-10-PCS; 2019-07-04)
PROC: 5A1D70Z Performance of Urinary Filtration, Intermittent, Less than 6 Hours Per Day (ICD-10-PCS; 2019-07-05)
DX: E11.40 Type 2 diabetes mellitus with diabetic neuropathy, unspecified (principal); E11.22 Type 2 diabetes mellitus with diabetic chronic kidney disease; I12.0 Hypertensive chronic kidney disease with stage 5 chronic kidney disease or end stage renal disease; K31.84 Gastroparesis; E11.43 Type 2 diabetes mellitus with diabetic autonomic (poly)neuropathy; N18.6 End stage renal disease; E86.0 Dehydration; F32.9 Major depressive disorder, single episode, unspecified; E03.9 Hypothyroidism, unspecified; D64.9 Anemia, unspecified; E78.5 Hyperlipidemia, unspecified; G40.909 Epilepsy, unspecified, not intractable, without status epilepticus; Z90.49 Acquired absence of other specified parts of digestive tract; Z90.710 Acquired absence of both cervix and uterus; Z91.15 Patient's noncompliance with renal dialysis; Z99.2 Dependence on renal dialysis; Z91.19 Patient's noncompliance with other medical treatment and regimen; Z88.8 Allergy status to other drugs, medicaments and biological substances; Z91.040 Latex allergy status; K29.70 Gastritis, unspecified, without bleeding
CPT/HCPCS: 36415; 71045; 74176; 80048; 80053; 80307; 82962; 83880; 84484; 85025; 93005; 96372; 96374; 96376; 99285; J1644; J1815; J1885; J2270; J2405; J7030

== ENCOUNTER 2019-07-19 16:42 | Inpatient (IN) | payer MEDICAID ==
[~2019-07-19] VITALS: Ht 152.4 cm; Wt 63.6 kg
[~2019-07-19 16:42] MED LIST changes: -DOCU-272 PO; -LEVE500T98 PO; -LEVO25TA7 PO; -LORA1TAB PO
[2019-07-19] MEDS ORDERED: HYDRALAZINE 20MG/ML VIAL IV ONE (18:00)
[2019-07-19 18:18] LABS: BASOPHILS % 0.6 % (0.0-2.0); EOSINOPHILS % 1.4 % (0.0-5.0); HEMATOCRIT. 29.5 % (36.0-48.0); HEMOGLOBIN. 9.9 g/dL (12.0-16.0); LYMPHOCYTES % 10.6 % (20.0-50.0); MEAN CORPUSCULAR HEMOGLOBIN 28.4 pg (28.0-32.0); MEAN CORPUSCULAR VOLUME 84.3 fL (81.0-99.0); MEAN PLATELET VOLUME 8.7 fl (7.4-10.4); MONOCYTES % 6.6 % (2.0-8.0); NEUTROPHILS % 80.8 % (40.0-76.0); PLATELET 263 x1000/uL (130-400); RED BLOOD CELL COUNT 3.49 mill/uL (4.2-5.4); RED CELL DISTRIBUTION WIDTH 14.2 % (11.6-14.6)
[2019-07-19 18:21] LABS: CHLORIDE 106 mEq/L (98-107)
[2019-07-19 21:30] VITALS: BP 177/67
[2019-07-19] MEDS ORDERED: CLONIDINE 0.1MG TABLET PO PRN (22:30)
[2019-07-19] MEDS ORDERED: HYDRALAZINE 20MG/ML VIAL IV PRN (22:30)
[2019-07-19] MEDS ORDERED: ONDANSETRON HCL 4MG/2ML INJ IV PRN (22:30)
[2019-07-19] MEDS ORDERED: DOCUSATE SODIUM 100MG CAPSULE PO PRN (22:30)
[2019-07-19] MEDS ORDERED: ACETAMINOPHEN 325MG TABLET PO PRN (22:30)
[2019-07-19] MEDS ORDERED: IPRATROPIUM/ALBUTEROL 0.5-3(2.5)MG/3ML NEB NEB PRN (22:30)
[2019-07-19] MEDS: HYDROCODONE/ACETAMINOPHEN 5/325MG TABLET PO PRN (23:01)
[2019-07-20] VITALS: BP 106/49
[2019-07-20] MEDS ORDERED: DEXTROSE 50% WATER 50ML SYRINGE IV PRN (02:00)
[2019-07-20] MEDS ORDERED: ZOLP5TAB2 PO (02:54)
[2019-07-20 04:00] VITALS: BP 114/40
[2019-07-20] MEDS: HYDROCODONE/ACETAMINOPHEN 5/325MG TABLET PO PRN (04:09)
[2019-07-20] MEDS: BLOOD SUGAR DIAGNOSTIC STRIP TEST SCH ×3 (06:10→21:40)
[2019-07-20] MEDS: INSULIN LISPRO 100 UNITS/ML SUBCUT SCH ×4 (07:50→21:00)
[2019-07-20 08:19] VITALS: BP 124/43
[2019-07-20 08:21] LABS: BASOPHILS % 0.7 % (0.0-2.0); EOSINOPHILS % 1.5 % (0.0-5.0); HEMATOCRIT. 25.9 % (36.0-48.0); HEMOGLOBIN. 8.7 g/dL (12.0-16.0); LYMPHOCYTES % 17.2 % (20.0-50.0); MEAN CORPUSCULAR VOLUME 83.4 fL (81.0-99.0); MEAN PLATELET VOLUME 9.2 fl (7.4-10.4); MONOCYTES % 8.5 % (2.0-8.0); NEUTROPHILS % 72.1 % (40.0-76.0); PLATELET 234 x1000/uL (130-400); RED CELL DISTRIBUTION WIDTH 14.1 % (11.6-14.6)
[2019-07-20 08:43] LABS: CHLORIDE 107 mEq/L (98-107)
[2019-07-20 08:52] LABS: LDL CHOLESTEROL 101 mg/dL (5-100)
[2019-07-20 08:53] LABS: CREATINE KINASE 27 IU/L (26-192)
[2019-07-20 08:54] LABS: CREATINE KINASE 26 IU/L (26-192); CREATINE KINASE MB FRACTION < 1.0 ng/mL (0.5-3.6); HDL CHOLESTEROL 43 mg/dL (40-59)
[2019-07-20 08:57] LABS: CREATINE KINASE MB FRACTION < 1.0 ng/mL (0.5-3.6)
[2019-07-20] MEDS: HYDRALAZINE HCL 100MG TABLET PO SCH ×2 (09:00→13:00)
[2019-07-20] MEDS: CARVEDILOL 12.5MG TABLET PO SCH ×2 (09:00→21:00)
[2019-07-20] MEDS ORDERED: INSULIN GLARGINE UD 100 UNITS/ML SYR SUBCUT SCH (10:00)
[2019-07-20] MEDS: CALCITRIOL 0.25MCG CAPSULE PO SCH (10:33)
[2019-07-20] MEDS: FAMOTIDINE 20MG TABLET PO SCH (10:33)
[2019-07-20 12:28] VITALS: BP 139/41
[2019-07-20 15:12] LABS: CLARITY URINE CLOUDY (CLEAR); COLOR URINE YELLOW (YELLOW); KETONES URINE TRACE (NEGATIVE); LEUKOCYTE ESTERASE URINE NEGATIVE (NEGATIVE); NITRITE URINE NEGATIVE (NEGATIVE); OCCULT BLOOD URINE NEGATIVE (NEGATIVE); PH URINE 6.5 (4.5-8.0); PROTEIN URINE 3+ (NEGATIVE); SPECIFIC GRAVITY URINE 1.018 (1.005-1.030)
[2019-07-20 15:48] LABS: *BARBITURATES SCREEN URINE NEGATIVE (NEGATIVE); *BENZODIAZEPINES SCREEN URINE NEGATIVE (NEGATIVE); *COCAINE SCREEN URINE NEGATIVE (NEGATIVE)
[2019-07-20 15:49] LABS: *AMPHETAMINES SCREEN URINE NEGATIVE (NEGATIVE); CANNABINOID URINE SCREEN NEGATIVE (NEGATIVE); METHADONE URINE SCREEN NEGATIVE (NEGATIVE); OPIATES URINE SCREEN PRESUMTIVE POSITIVE (NEGATIVE); PHENCYCLIDINE URINE SCREEN NEGATIVE (NEGATIVE)
[2019-07-20 15:51] VITALS: BP 127/42
[2019-07-20 20:09] VITALS: BP 141/64
[2019-07-20] MEDS: ZOLPIDEM TARTRATE 5MG TABLET PO PRN (21:42)
[2019-07-21] MEDS: HYDROCODONE/ACETAMINOPHEN 5/325MG TABLET PO PRN ×3 (00:07→22:48)
[2019-07-21 00:09] VITALS: BP 122/50
[2019-07-21 04:00] VITALS: BP 128/47
[2019-07-21] MEDS: BLOOD SUGAR DIAGNOSTIC STRIP TEST SCH ×4 (06:26→20:23)
[2019-07-21] MEDS: INSULIN LISPRO 100 UNITS/ML SUBCUT SCH ×4 (07:50→20:23)
[2019-07-21] MEDS: CARVEDILOL 12.5MG TABLET PO SCH ×2 (10:01→20:24)
[2019-07-21] MEDS: FAMOTIDINE 20MG TABLET PO SCH (10:01)
[2019-07-21] MEDS: CALCITRIOL 0.25MCG CAPSULE PO SCH (10:02)
[2019-07-21] MEDS: HYDRALAZINE HCL 100MG TABLET PO SCH ×4 (10:05→17:00)
[2019-07-21] MEDS ORDERED: ONDANSETRON HCL 4MG TABLET PO NR (11:30)
[2019-07-21] MEDS ORDERED: PANT40TA4 MT (11:56)
[2019-07-21 12:00] VITALS: BP 117/44
[2019-07-21 16:00] VITALS: BP 112/44
[2019-07-21 20:00] VITALS: BP 111/46
[2019-07-21] MEDS: ZOLPIDEM TARTRATE 5MG TABLET PO PRN (20:23)
[2019-07-22] VITALS: BP 121/40
[2019-07-22 03:50] VITALS: BP 123/48
[2019-07-22 05:07] LABS: BASOPHILS % 0.6 % (0.0-2.0); EOSINOPHILS % 1.9 % (0.0-5.0); HEMATOCRIT. 28.6 % (36.0-48.0); HEMOGLOBIN. 9.8 g/dL (12.0-16.0); LYMPHOCYTES % 17.7 % (20.0-50.0); MEAN CORPUSCULAR HEMOGLOBIN 28.7 pg (28.0-32.0); MEAN CORPUSCULAR VOLUME 83.8 fL (81.0-99.0); MEAN PLATELET VOLUME 9.1 fl (7.4-10.4); MONOCYTES % 10.2 % (2.0-8.0); NEUTROPHILS % 69.6 % (40.0-76.0); PLATELET 207 x1000/uL (130-400); RED BLOOD CELL COUNT 3.41 mill/uL (4.2-5.4); RED CELL DISTRIBUTION WIDTH 14.1 % (11.6-14.6)
[2019-07-22] MEDS: BLOOD SUGAR DIAGNOSTIC STRIP TEST SCH ×3 (06:28→18:09)
[2019-07-22] MEDS: INSULIN LISPRO 100 UNITS/ML SUBCUT SCH ×3 (07:50→18:13)
[2019-07-22 08:00] VITALS: BP 130/47
[2019-07-22] MEDS: FAMOTIDINE 20MG TABLET PO SCH (09:17)
[2019-07-22] MEDS: HYDRALAZINE HCL 100MG TABLET PO SCH ×3 (09:17→18:09)
[2019-07-22] MEDS: CALCITRIOL 0.25MCG CAPSULE PO SCH (09:17)
[2019-07-22] MEDS: CARVEDILOL 12.5MG TABLET PO SCH (09:18)
[2019-07-22 12:00] VITALS: BP 125/58
[2019-07-22 16:00] VITALS: BP 142/58
== END 2019-07-22 19:15 | disposition home or self-care (01) | DRG 425 ==
LOC: ER 16:42 → EDBEDREQTM 20:08 → EDBEDREQ 20:08 → ENRESERV 20:22 → 6WST 21:15
PROVIDERS: ADMIT Internal Medicine; ATTEND Internal Medicine
PROC: 5A1D70Z Performance of Urinary Filtration, Intermittent, Less than 6 Hours Per Day (ICD-10-PCS; principal; 2019-07-20)
PROC: 5A1D70Z Performance of Urinary Filtration, Intermittent, Less than 6 Hours Per Day (ICD-10-PCS; 2019-07-22)
DX: E87.70 Fluid overload, unspecified (principal); I13.2 Hypertensive heart and chronic kidney disease with heart failure and with stage 5 chronic kidney disease, or end stage renal disease; E11.22 Type 2 diabetes mellitus with diabetic chronic kidney disease; E11.69 Type 2 diabetes mellitus with other specified complication; I07.1 Rheumatic tricuspid insufficiency; N18.6 End stage renal disease; K29.70 Gastritis, unspecified, without bleeding; I27.21 Secondary pulmonary arterial hypertension; I16.1 Hypertensive emergency; I50.32 Chronic diastolic (congestive) heart failure; K31.9 Disease of stomach and duodenum, unspecified; F32.9 Major depressive disorder, single episode, unspecified; M19.90 Unspecified osteoarthritis, unspecified site; D64.9 Anemia, unspecified; G40.909 Epilepsy, unspecified, not intractable, without status epilepticus; E03.9 Hypothyroidism, unspecified; D72.821 Monocytosis (symptomatic); Z99.2 Dependence on renal dialysis; Z79.4 Long term (current) use of insulin; Q07.00 Arnold-Chiari syndrome without spina bifida or hydrocephalus; Z90.710 Acquired absence of both cervix and uterus; Z90.49 Acquired absence of other specified parts of digestive tract; Z82.49 Family history of ischemic heart disease and other diseases of the circulatory system; Z91.15 Patient's noncompliance with renal dialysis; Z91.19 Patient's noncompliance with other medical treatment and regimen; Z88.8 Allergy status to other drugs, medicaments and biological substances
CPT/HCPCS: 36415; 71045; 80048; 80053; 80061; 80305; 81003; 82550; 82553; 82962; 84100; 84443; 84484; 85025; 93005; 93970; 94640; 99291; J0360; J1815; J2405; J7620; Q0162

== ENCOUNTER 2019-07-24 23:55 | Emergency (ER) | payer MEDICAID ==
[~2019-07-24] VITALS: Ht 162.6 cm; Wt 73.0 kg
[~2019-07-24 23:55] MED LIST changes: -FAMO20TA8 PO; -OMEP10CA5 PO; +PANT40TA4 MT; +ZOLP5TAB2 PO
[2019-07-25 00:59] LABS: BASOPHILS % 0.6 % (0.0-2.0); EOSINOPHILS % 3.2 % (0.0-5.0); HEMATOCRIT. 33.9 % (36.0-48.0); HEMOGLOBIN. 11.2 g/dL (12.0-16.0); LYMPHOCYTES % 10.4 % (20.0-50.0); MEAN CORPUSCULAR HEMOGLOBIN 28.2 pg (28.0-32.0); MEAN CORPUSCULAR VOLUME 85.3 fL (81.0-99.0); MEAN PLATELET VOLUME 9.1 fl (7.4-10.4); MONOCYTES % 10.7 % (2.0-8.0); NEUTROPHILS % 75.1 % (40.0-76.0); PLATELET 213 x1000/uL (130-400); RED BLOOD CELL COUNT 3.98 mill/uL (4.2-5.4); RED CELL DISTRIBUTION WIDTH 14.8 % (11.6-14.6)
[2019-07-25 01:01] LABS: CHLORIDE 106 mEq/L (98-107)
[2019-07-25] MEDS ORDERED: IPRATROPIUM BROMIDE (0.02%) 0.5MG/2.5ML NEB HHN STA (02:52)
[2019-07-25] MEDS ORDERED: ALBUTEROL (0.083%) 2.5MG/3ML NEB HHN STA (02:52)
[2019-07-25 06:21] VITALS: BP 141/55
== END 2019-07-25 06:31 | disposition home or self-care (01) ==
LOC: ER 23:55
DX: R06.02 Shortness of breath (principal); I12.0 Hypertensive chronic kidney disease with stage 5 chronic kidney disease or end stage renal disease; E11.22 Type 2 diabetes mellitus with diabetic chronic kidney disease; N18.6 End stage renal disease; G40.909 Epilepsy, unspecified, not intractable, without status epilepticus; Z79.4 Long term (current) use of insulin; Z99.2 Dependence on renal dialysis; Z90.49 Acquired absence of other specified parts of digestive tract; Z90.710 Acquired absence of both cervix and uterus; Z88.2 Allergy status to sulfonamides; Z79.899 Other long term (current) drug therapy; Z98.890 Other specified postprocedural states
CPT/HCPCS: 36415; 71045; 80053; 83880; 84484; 85025; 93005; 94640; 99284; J7611; Z7610

== ENCOUNTER 2019-07-31 11:16 | Inpatient (IN) | payer MEDICAID ==
[~2019-07-31] VITALS: Ht 152.4 cm; Wt 60.8 kg
[2019-07-31] MEDS ORDERED: ONDANSETRON HCL 4MG/2ML INJ IV STA (12:16)
[2019-07-31] MEDS ORDERED: MORPHINE SULFATE 4 MG/ML CPJ (NOT FOR IM USE) IV STA (12:16)
[2019-07-31 15:31] LABS: CHLORIDE 106 mEq/L (98-107)
[2019-07-31 15:58] LABS: BASOPHILS % 0.6 % (0.0-2.0); EOSINOPHILS % 1.4 % (0.0-5.0); HEMATOCRIT. 33.6 % (36.0-48.0); HEMOGLOBIN. 11.1 g/dL (12.0-16.0); LYMPHOCYTES % 15.4 % (20.0-50.0); MEAN CORPUSCULAR HEMOGLOBIN 28.5 pg (28.0-32.0); MEAN CORPUSCULAR VOLUME 86.4 fL (81.0-99.0); MEAN PLATELET VOLUME 9.4 fl (7.4-10.4); MONOCYTES % 9.5 % (2.0-8.0); NEUTROPHILS % 73.1 % (40.0-76.0); PLATELET 262 x1000/uL (130-400); RED BLOOD CELL COUNT 3.88 mill/uL (4.2-5.4); RED CELL DISTRIBUTION WIDTH 14.2 % (11.6-14.6)
[2019-07-31] MEDS ORDERED: DOCUSATE SODIUM 100MG CAPSULE PO PRN (17:15)
[2019-07-31] MEDS ORDERED: IPRATROPIUM/ALBUTEROL 0.5-3(2.5)MG/3ML NEB NEB PRN (17:15)
[2019-07-31] MEDS ORDERED: ACETAMINOPHEN 325MG TABLET PO PRN (17:15)
[2019-07-31] MEDS ORDERED: DIPHENHYDRAMINE 50MG/ML VIAL IV PRN (17:15)
[2019-07-31] MEDS ORDERED: LORAZEPAM 2MG/ML CPJ IV PRN (17:15)
[2019-07-31] MEDS ORDERED: GUAIFENESIN 200MG/10ML SUGAR FREE UDC PO PRN (17:15)
[2019-07-31] MEDS ORDERED: DEXTROSE 50% WATER 50ML SYRINGE IV PRN (17:15)
[2019-07-31] MEDS ORDERED: HYDROCODONE/ACETAMINOPHEN 10/325MG TABLET PO PRN (17:15)
[2019-07-31] MEDS ORDERED: CLONIDINE 0.1MG TABLET PO PRN (17:15)
[2019-07-31] MEDS ORDERED: MAGNESIUM/ALUMINUM HYDROXIDE/SIMETHICONE 30ML UDC PO PRN (17:15)
[2019-07-31] MEDS ORDERED: HYDRALAZINE 20MG/ML VIAL IV PRN ×2 (17:32→23:30)
[2019-07-31] MEDS ORDERED: INSULIN LISPRO 100 UNITS/ML SUBCUT NR (17:33)
[2019-07-31 18:44] LABS: CLARITY URINE CLOUDY (CLEAR); COLOR URINE YELLOW (YELLOW); KETONES URINE NEGATIVE (NEGATIVE); LEUKOCYTE ESTERASE URINE NEGATIVE (NEGATIVE); NITRITE URINE NEGATIVE (NEGATIVE); OCCULT BLOOD URINE NEGATIVE (NEGATIVE); PROTEIN URINE 3+ (NEGATIVE); SPECIFIC GRAVITY URINE 1.019 (1.005-1.030); UROBILINOGEN URINE 0.2 E.U./dL (0.2-1.0)
[2019-07-31] MEDS ORDERED: ENOXAPARIN 40MG/0.4ML SYR SUBCUT SCH (20:00)
[2019-08-01 00:48] LABS: CREATINE KINASE 31 IU/L (26-192)
[2019-08-01 00:49] LABS: CREATINE KINASE MB FRACTION < 1.0 ng/mL (0.5-3.6)
[2019-08-01] MEDS: MORPHINE SULFATE 2 MG/ML CPJ (NOT FOR IM USE) IV PRN (02:43)
[2019-08-01 05:07] LABS: EOSINOPHILS % 2.9 % (0.0-5.0); HEMATOCRIT. 26.6 % (36.0-48.0); HEMOGLOBIN. 9.1 g/dL (12.0-16.0); LYMPHOCYTES % 24.6 % (20.0-50.0); MEAN CORPUSCULAR HEMOGLOBIN 28.6 pg (28.0-32.0); MEAN CORPUSCULAR VOLUME 83.9 fL (81.0-99.0); MEAN PLATELET VOLUME 9.4 fl (7.4-10.4); MONOCYTES % 13.8 % (2.0-8.0); NEUTROPHILS % 57.7 % (40.0-76.0); PLATELET 243 x1000/uL (130-400); RED BLOOD CELL COUNT 3.17 mill/uL (4.2-5.4); RED CELL DISTRIBUTION WIDTH 14.3 % (11.6-14.6)
[2019-08-01 05:19] LABS: CHLORIDE 103 mEq/L (98-107)
[2019-08-01 05:26] LABS: LDL CHOLESTEROL 109 mg/dL (5-100)
[2019-08-01 05:28] LABS: CREATINE KINASE 40 IU/L (26-192); HDL CHOLESTEROL 36 mg/dL (40-59)
[2019-08-01 05:31] LABS: CREATINE KINASE MB FRACTION < 1.0 ng/mL (0.5-3.6)
[2019-08-01 10:00] VITALS: BP 155/45
[2019-08-01 10:24] VITALS: BP 155/45
[2019-08-01 12:00] VITALS: BP 145/51
[2019-08-01] MEDS: BLOOD SUGAR DIAGNOSTIC STRIP TEST SCH ×3 (12:20→20:41)
[2019-08-01] MEDS: INSULIN LISPRO 100 UNITS/ML SUBCUT SCH ×3 (12:50→20:41)
[2019-08-01] MEDS: ENOXAPARIN 30MG/0.3ML SYR SUBCUT SCH (13:50)
[2019-08-01 15:55] VITALS: BP 120/40
[2019-08-01] MEDS: SODIUM CHLORIDE 0.9% INJ 3ML FLUSH IVF SCH ×2 (18:25→21:35)
[2019-08-01 20:00] VITALS: BP 101/44
[2019-08-01] MEDS ORDERED: KEPP500 PO (21:44)
[2019-08-02] VITALS: BP 117/36
[2019-08-02 04:00] VITALS: BP 127/48
[2019-08-02] MEDS: SODIUM CHLORIDE 0.9% INJ 3ML FLUSH IVF SCH ×4 (06:00→22:43)
[2019-08-02] MEDS: BLOOD SUGAR DIAGNOSTIC STRIP TEST SCH ×4 (06:53→21:00)
[2019-08-02] MEDS: INSULIN LISPRO 100 UNITS/ML SUBCUT SCH ×4 (06:53→21:00)
[2019-08-02 08:00] VITALS: BP 94/24
[2019-08-02 08:00] LABS: BASOPHILS % 0.8 % (0.0-2.0); EOSINOPHILS % 3.6 % (0.0-5.0); HEMATOCRIT. 25.5 % (36.0-48.0); HEMOGLOBIN. 8.7 g/dL (12.0-16.0); LYMPHOCYTES % 19.6 % (20.0-50.0); MEAN CORPUSCULAR HEMOGLOBIN 28.5 pg (28.0-32.0); MEAN CORPUSCULAR VOLUME 83.5 fL (81.0-99.0); MEAN PLATELET VOLUME 9.5 fl (7.4-10.4); PLATELET 231 x1000/uL (130-400); RED BLOOD CELL COUNT 3.06 mill/uL (4.2-5.4); RED CELL DISTRIBUTION WIDTH 13.9 % (11.6-14.6)
[2019-08-02 08:51] LABS: CHLORIDE 103 mEq/L (98-107)
[2019-08-02 08:57] LABS: PHOSPHORUS 5.9 mg/dL (2.5-4.9)
[2019-08-02 09:00] LABS: CREATINE KINASE 27 IU/L (26-192)
[2019-08-02 09:03] LABS: CREATINE KINASE MB FRACTION < 1.0 ng/mL (0.5-3.6)
[2019-08-02] MEDS: ENOXAPARIN 30MG/0.3ML SYR SUBCUT SCH (10:27)
[2019-08-02 12:00] VITALS: BP 120/42
[2019-08-02] MEDS: ONDANSETRON HCL 4MG/2ML INJ IV PRN ×2 (12:37→19:11)
[2019-08-02] MEDS: MORPHINE SULFATE 2 MG/ML CPJ (NOT FOR IM USE) IV PRN (12:37)
[2019-08-02] MEDS: SERTRALINE HCL 25MG TABLET PO SCH (13:27)
[2019-08-02 16:00] VITALS: BP 116/47
[2019-08-02 16:18] LABS: CREATINE KINASE 28 IU/L (26-192); CREATINE KINASE MB FRACTION < 1.0 ng/mL (0.5-3.6)
[2019-08-02] MEDS: FERROUS SULFATE 325MG TABLET PO SCH (17:25)
[2019-08-02 20:00] VITALS: BP 156/52
[2019-08-02] MEDS ORDERED: EPOETIN ALFA 4000UNITS/ML VIAL SUBCUT SCH (21:00)
[2019-08-03] VITALS (7 sets, daily range): BP systolic 125–178; BP diastolic 49–61
[2019-08-03] MEDS: BLOOD SUGAR DIAGNOSTIC STRIP TEST SCH ×4 (06:21→20:49)
[2019-08-03] MEDS: SODIUM CHLORIDE 0.9% INJ 3ML FLUSH IVF SCH ×3 (06:31→20:49)
[2019-08-03 07:07] LABS: BASOPHILS % 0.8 % (0.0-2.0); EOSINOPHILS % 3.9 % (0.0-5.0); HEMATOCRIT. 26.6 % (36.0-48.0); HEMOGLOBIN. 9.2 g/dL (12.0-16.0); LYMPHOCYTES % 17.5 % (20.0-50.0); MEAN CORPUSCULAR HEMOGLOBIN 28.8 pg (28.0-32.0); MEAN CORPUSCULAR VOLUME 83.3 fL (81.0-99.0); MEAN PLATELET VOLUME 9.3 fl (7.4-10.4); MONOCYTES % 14.6 % (2.0-8.0); NEUTROPHILS % 63.2 % (40.0-76.0); PLATELET 236 x1000/uL (130-400); RED CELL DISTRIBUTION WIDTH 14.3 % (11.6-14.6)
[2019-08-03] MEDS: INSULIN LISPRO 100 UNITS/ML SUBCUT SCH ×4 (07:50→20:49)
[2019-08-03] MEDS: ENOXAPARIN 30MG/0.3ML SYR SUBCUT SCH (08:23)
[2019-08-03] MEDS: FERROUS SULFATE 325MG TABLET PO SCH ×2 (08:23→17:18)
[2019-08-03] MEDS: SERTRALINE HCL 25MG TABLET PO SCH (08:23)
[2019-08-03] MEDS: ONDANSETRON HCL 4MG/2ML INJ IV PRN (08:50)
[2019-08-03] MEDS ORDERED: MEGESTROL ACETATE 400 MG/10 ML UDC PO SCH (09:00)
[2019-08-03] MEDS: MORPHINE SULFATE 2 MG/ML CPJ (NOT FOR IM USE) IV PRN (12:15)
== END 2019-08-03 21:18 | disposition home or self-care (01) | DRG 420 ==
LOC: ER 11:32 → 6WST 16:44 → ENRESERV 08-01 07:46
PROVIDERS: ADMIT Internal Medicine; ATTEND Internal Medicine
PROC: 5A1D70Z Performance of Urinary Filtration, Intermittent, Less than 6 Hours Per Day (ICD-10-PCS; principal; 2019-08-02)
PROC: 5A1D70Z Performance of Urinary Filtration, Intermittent, Less than 6 Hours Per Day (ICD-10-PCS; 2019-08-03)
DX: E11.69 Type 2 diabetes mellitus with other specified complication (principal); E46 Unspecified protein-calorie malnutrition; I95.3 Hypotension of hemodialysis; E11.21 Type 2 diabetes mellitus with diabetic nephropathy; I13.11 Hypertensive heart and chronic kidney disease without heart failure, with stage 5 chronic kidney disease, or end stage renal disease; E11.22 Type 2 diabetes mellitus with diabetic chronic kidney disease; I27.20 Pulmonary hypertension, unspecified; I31.3 Pericardial effusion (noninflammatory); K52.9 Noninfective gastroenteritis and colitis, unspecified; N18.6 End stage renal disease; E03.9 Hypothyroidism, unspecified; R10.9 Unspecified abdominal pain; E78.5 Hyperlipidemia, unspecified; D64.9 Anemia, unspecified; F32.9 Major depressive disorder, single episode, unspecified; G40.909 Epilepsy, unspecified, not intractable, without status epilepticus; Z91.19 Patient's noncompliance with other medical treatment and regimen; Z90.710 Acquired absence of both cervix and uterus; Z90.49 Acquired absence of other specified parts of digestive tract; Z99.2 Dependence on renal dialysis; Z82.49 Family history of ischemic heart disease and other diseases of the circulatory system; Z68.26 Body mass index [BMI] 26.0-26.9, adult; Z88.8 Allergy status to other drugs, medicaments and biological substances; Z91.09 Other allergy status, other than to drugs and biological substances; Z79.899 Other long term (current) drug therapy
CPT/HCPCS: 36415; 71045; 74176; 80048; 80053; 80061; 81003; 82550; 82553; 82962; 83036; 83540; 83550; 83880; 84100; 84484; 85025; 85379; 93005; 93306; 93970; 96372; 96374; 96375; 96376; 99285; C1893; J0885; J1650; J1815; J2270; J2405

== ENCOUNTER 2019-08-17 10:58 | Inpatient (IN) | payer MEDICAID ==
[~2019-08-17] VITALS: Ht 167.6 cm; Wt 61.2 kg
[~2019-08-17 10:58] MED LIST changes: +KEPP500 PO
[2019-08-17] MEDS ORDERED: MAGNESIUM/ALUMINUM HYDROXIDE/SIMETHICONE 30ML UDC PO ONE (19:00)
[2019-08-17] MEDS ORDERED: ASPIRIN 325MG EC TABLET PO ONE (19:00)
[2019-08-17] MEDS ORDERED: FAMOTIDINE 20MG TABLET PO ONE (19:00)
[2019-08-17] MEDS ORDERED: ACETAMINOPHEN 325MG TABLET PO ONE (19:00)
[2019-08-17 21:31] LABS: BASOPHILS % 0.5 % (0.0-2.0); HEMATOCRIT. 29.1 % (36.0-48.0); HEMOGLOBIN. 9.9 g/dL (12.0-16.0); LYMPHOCYTES % 11.7 % (20.0-50.0); MEAN CORPUSCULAR HEMOGLOBIN 29.6 pg (28.0-32.0); MEAN CORPUSCULAR VOLUME 87.1 fL (81.0-99.0); MEAN PLATELET VOLUME 9.8 fl (7.4-10.4); MONOCYTES % 11.7 % (2.0-8.0); NEUTROPHILS % 75.1 % (40.0-76.0); PLATELET 254 x1000/uL (130-400); RED BLOOD CELL COUNT 3.34 mill/uL (4.2-5.4); RED CELL DISTRIBUTION WIDTH 14.4 % (11.6-14.6)
[2019-08-17 21:38] LABS: CHLORIDE 108 mEq/L (98-107)
[2019-08-17] MEDS ORDERED: HYDRALAZINE HCL 10MG TABLET PO ONE (22:00)
[2019-08-17] MEDS ORDERED: CLONIDINE 0.1MG TABLET PO ONE (22:00)
[2019-08-18 07:00] VITALS: BP 148/79
[2019-08-18 08:00] VITALS: BP 148/79
[2019-08-18 09:59] LABS: BASOPHILS % 0.9 % (0.0-2.0); EOSINOPHILS % 3.1 % (0.0-5.0); HEMATOCRIT. 22.6 % (36.0-48.0); HEMOGLOBIN. 7.7 g/dL (12.0-16.0); LYMPHOCYTES % 19.2 % (20.0-50.0); MEAN CORPUSCULAR HEMOGLOBIN 28.9 pg (28.0-32.0); MEAN CORPUSCULAR VOLUME 85.2 fL (81.0-99.0); MEAN PLATELET VOLUME 9.6 fl (7.4-10.4); MONOCYTES % 11.4 % (2.0-8.0); NEUTROPHILS % 65.4 % (40.0-76.0); PLATELET 222 x1000/uL (130-400); RED BLOOD CELL COUNT 2.65 mill/uL (4.2-5.4); RED CELL DISTRIBUTION WIDTH 13.8 % (11.6-14.6)
[2019-08-18 10:16] LABS: CHLORIDE 107 mEq/L (98-107)
[2019-08-18 10:26] LABS: CREATINE KINASE 39 IU/L (26-192)
[2019-08-18 10:29] LABS: CREATINE KINASE MB FRACTION < 1.0 ng/mL (0.5-3.6)
[2019-08-18] MEDS: PANTOPRAZOLE 40MG DR TABLET PO SCH (11:28)
[2019-08-18] MEDS: CALCITRIOL 0.25MCG CAPSULE PO SCH (11:28)
[2019-08-18] MEDS: LEVETIRACETAM 500MG TABLET PO SCH ×2 (11:29→21:11)
[2019-08-18] MEDS: CARVEDILOL 12.5MG TABLET PO SCH ×2 (11:29→21:10)
[2019-08-18 12:00] VITALS: BP 131/46
[2019-08-18] MEDS: CLONIDINE 0.1MG TABLET PO SCH ×2 (14:35→21:11)
[2019-08-18] MEDS: GABAPENTIN 300MG CAPSULE PO SCH ×2 (14:35→21:12)
[2019-08-18] MEDS: HYDRALAZINE HCL 100MG TABLET PO SCH ×2 (14:36→21:12)
[2019-08-18 16:00] VITALS: BP 111/48
[2019-08-18 18:09] LABS: TOTAL IRON BINDING CAPACITY 163 ug/dL (250-450)
[2019-08-18 18:46] LABS: HEMOGLOBIN 6.8 g/dL (12.0-16.0)
[2019-08-18 18:47] LABS: HEMATOCRIT 19.3 % (36.0-48.0)
[2019-08-18] MEDS: FERROUS SULFATE 325MG TABLET PO SCH (19:37)
[2019-08-18 20:00] VITALS: BP 136/53
[2019-08-18] MEDS: SERTRALINE HCL 25MG TABLET PO SCH (21:11)
[2019-08-19] VITALS (9 sets, daily range): BP systolic 106–164; BP diastolic 42–61
[2019-08-19] MEDS: CLONIDINE 0.1MG TABLET PO SCH ×3 (06:00→21:05)
[2019-08-19] MEDS: GABAPENTIN 300MG CAPSULE PO SCH ×3 (06:00→21:05)
[2019-08-19] MEDS: HYDRALAZINE HCL 100MG TABLET PO SCH ×3 (06:00→21:05)
[2019-08-19 06:26] LABS: BASOPHILS % 0.9 % (0.0-2.0); EOSINOPHILS % 4.9 % (0.0-5.0); LYMPHOCYTES % 20.2 % (20.0-50.0); MEAN CORPUSCULAR HEMOGLOBIN 29.2 pg (28.0-32.0); MEAN CORPUSCULAR VOLUME 85.4 fL (81.0-99.0); MEAN PLATELET VOLUME 10.4 fl (7.4-10.4); MONOCYTES % 11.5 % (2.0-8.0); NEUTROPHILS % 62.5 % (40.0-76.0); PLATELET 211 x1000/uL (130-400); RED BLOOD CELL COUNT 2.28 mill/uL (4.2-5.4); RED CELL DISTRIBUTION WIDTH 13.8 % (11.6-14.6)
[2019-08-19 07:42] LABS: HEMATOCRIT. 19.4 % (36.0-48.0); HEMOGLOBIN. 6.7 g/dL (12.0-16.0)
[2019-08-19] MEDS: CARVEDILOL 12.5MG TABLET PO SCH ×2 (08:55→20:40)
[2019-08-19] MEDS: PANTOPRAZOLE 40MG DR TABLET PO SCH (10:47)
[2019-08-19] MEDS: CALCITRIOL 0.25MCG CAPSULE PO SCH (10:47)
[2019-08-19] MEDS: LEVETIRACETAM 500MG TABLET PO SCH ×2 (10:47→20:40)
[2019-08-19] MEDS: FERROUS SULFATE 325MG TABLET PO SCH ×2 (10:47→18:16)
[2019-08-19] MEDS: SERTRALINE HCL 25MG TABLET PO SCH (10:47)
[2019-08-19] MEDS ORDERED: MAGNESIUM HYDROXIDE 400MG/5ML 30ML UDC PO PRN (13:15)
[2019-08-19] MEDS: DOCUSATE SODIUM 100MG CAPSULE PO SCH (18:16)
[2019-08-19] MEDS: MORPHINE SULFATE 2 MG/ML CPJ (NOT FOR IM USE) IV PRN (18:52)
[2019-08-19 20:26] LABS: HEMATOCRIT 26.6 % (36.0-48.0); HEMOGLOBIN 9.3 g/dL (12.0-16.0)
[2019-08-19] MEDS: ZOLPIDEM TARTRATE 5MG TABLET PO PRN (21:04)
[2019-08-19] MEDS: EPOETIN ALFA 4000UNITS/ML VIAL SUBCUT SCH (23:46)
[2019-08-20] VITALS: BP 137/55
[2019-08-20 04:00] VITALS: BP 136/54
[2019-08-20] MEDS: CLONIDINE 0.1MG TABLET PO SCH ×3 (05:12→20:10)
[2019-08-20] MEDS: GABAPENTIN 300MG CAPSULE PO SCH ×3 (05:12→20:10)
[2019-08-20] MEDS: HYDRALAZINE HCL 100MG TABLET PO SCH ×3 (05:12→20:10)
[2019-08-20] MEDS: PANTOPRAZOLE 40MG DR TABLET PO SCH ×2 (05:50→08:53)
[2019-08-20 08:00] VITALS: BP 130/73
[2019-08-20] MEDS: CALCITRIOL 0.25MCG CAPSULE PO SCH (08:53)
[2019-08-20] MEDS: LEVETIRACETAM 500MG TABLET PO SCH ×2 (08:53→20:10)
[2019-08-20] MEDS: SERTRALINE HCL 25MG TABLET PO SCH (08:53)
[2019-08-20] MEDS: FERROUS SULFATE 325MG TABLET PO SCH ×2 (08:53→16:59)
[2019-08-20] MEDS: DOCUSATE SODIUM 100MG CAPSULE PO SCH ×2 (08:54→16:59)
[2019-08-20] MEDS: CARVEDILOL 12.5MG TABLET PO SCH ×2 (08:54→20:10)
[2019-08-20 12:51] LABS: BASOPHILS % 0.7 % (0.0-2.0); EOSINOPHILS % 2.7 % (0.0-5.0); HEMATOCRIT. 24.1 % (36.0-48.0); HEMOGLOBIN. 8.2 g/dL (12.0-16.0); LYMPHOCYTES % 17.4 % (20.0-50.0); MEAN CORPUSCULAR HEMOGLOBIN 29.3 pg (28.0-32.0); MEAN CORPUSCULAR VOLUME 85.9 fL (81.0-99.0); MONOCYTES % 12.6 % (2.0-8.0); NEUTROPHILS % 66.6 % (40.0-76.0); PLATELET 194 x1000/uL (130-400); RED BLOOD CELL COUNT 2.81 mill/uL (4.2-5.4); RED CELL DISTRIBUTION WIDTH 14.3 % (11.6-14.6)
[2019-08-20 16:00] VITALS: BP 100/41
[2019-08-20] MEDS ORDERED: SORBITOL 70% SOLN 30ML PO NR ×2 (16:15→20:00)
[2019-08-20] MEDS: ESTROGENS CONJUGATED 0.3 MG PO SCH ×2 (16:59→17:01)
[2019-08-20 20:01] VITALS: BP 133/51
[2019-08-21 00:05] VITALS: BP 122/49
[2019-08-21 04:00] VITALS: BP 102/38
[2019-08-21] MEDS: HYDRALAZINE HCL 100MG TABLET PO SCH ×3 (05:54→20:58)
[2019-08-21] MEDS: GABAPENTIN 300MG CAPSULE PO SCH ×3 (05:54→20:58)
[2019-08-21] MEDS: CLONIDINE 0.1MG TABLET PO SCH ×3 (05:54→20:57)
[2019-08-21 06:41] LABS: BASOPHILS % 0.7 % (0.0-2.0); EOSINOPHILS % 3.7 % (0.0-5.0); HEMATOCRIT. 24.2 % (36.0-48.0); HEMOGLOBIN. 8.4 g/dL (12.0-16.0); MEAN CORPUSCULAR HEMOGLOBIN 29.8 pg (28.0-32.0); MEAN CORPUSCULAR VOLUME 86.1 fL (81.0-99.0); MEAN PLATELET VOLUME 10.1 fl (7.4-10.4); MONOCYTES % 9.3 % (2.0-8.0); NEUTROPHILS % 70.3 % (40.0-76.0); PLATELET 203 x1000/uL (130-400); RED BLOOD CELL COUNT 2.81 mill/uL (4.2-5.4); RED CELL DISTRIBUTION WIDTH 14.3 % (11.6-14.6)
[2019-08-21 06:42] LABS: PARTIAL THROMBOPLASTIN TIME 26.8 sec (23.4-31.0); PROTHROMBIN TIME 10.4 sec (9.6-11.0)
[2019-08-21] MEDS: DOCUSATE SODIUM 100MG CAPSULE PO SCH ×2 (07:50→17:00)
[2019-08-21] MEDS: FERROUS SULFATE 325MG TABLET PO SCH ×2 (07:50→18:10)
[2019-08-21 08:00] VITALS: BP 129/59
[2019-08-21] MEDS: CALCITRIOL 0.25MCG CAPSULE PO SCH (08:52)
[2019-08-21] MEDS: ESTROGENS CONJUGATED 0.3 MG PO SCH (08:52)
[2019-08-21] MEDS: CARVEDILOL 12.5MG TABLET PO SCH ×2 (08:52→20:56)
[2019-08-21] MEDS: SERTRALINE HCL 25MG TABLET PO SCH (08:52)
[2019-08-21] MEDS: LEVETIRACETAM 500MG TABLET PO SCH ×2 (08:52→20:56)
[2019-08-21 12:00] VITALS: BP 123/45
[2019-08-21] MEDS ORDERED: BACTERIOSTATIC SODIUM CHLORIDE 0.9% 30ML VIAL IJ ONE (14:15)
[2019-08-21] MEDS ORDERED: FENTANYL CITRATE/PF 50MCG/ML 2ML VIAL ONE (15:38)
[2019-08-21] MEDS ORDERED: MIDAZOLAM HCL 5 MG/5 ML VIAL ONE (15:38)
[2019-08-21] MEDS ORDERED: MIDAZOLAM HCL 2 MG/2 ML VIAL IV PRN (16:00)
[2019-08-21] MEDS ORDERED: FENTANYL CITRATE/PF 50MCG/ML 2ML VIAL IV PRN (16:08)
[2019-08-21 20:00] VITALS: BP 144/56
[2019-08-21] MEDS: EPOETIN ALFA 4000UNITS/ML VIAL SUBCUT SCH (21:37)
[2019-08-22] VITALS: BP 119/32
[2019-08-22 04:00] VITALS: BP 92/38
[2019-08-22] MEDS: CLONIDINE 0.1MG TABLET PO SCH ×3 (06:00→21:25)
[2019-08-22] MEDS: HYDRALAZINE HCL 100MG TABLET PO SCH ×3 (06:00→21:25)
[2019-08-22] MEDS: GABAPENTIN 300MG CAPSULE PO SCH ×3 (06:14→21:26)
[2019-08-22 08:00] VITALS: BP 93/34
[2019-08-22] MEDS: DOCUSATE SODIUM 250MG CAPSULE PO SCH ×2 (08:52→17:18)
[2019-08-22] MEDS: SERTRALINE HCL 25MG TABLET PO SCH (08:52)
[2019-08-22] MEDS: PANTOPRAZOLE 40MG DR TABLET PO SCH (08:52)
[2019-08-22] MEDS: ESTROGENS CONJUGATED 0.3 MG PO SCH (08:52)
[2019-08-22] MEDS: FERROUS SULFATE 325MG TABLET PO SCH ×2 (08:52→17:18)
[2019-08-22] MEDS: LEVETIRACETAM 500MG TABLET PO SCH ×2 (08:52→21:26)
[2019-08-22] MEDS: CARVEDILOL 12.5MG TABLET PO SCH ×2 (08:57→21:00)
[2019-08-22] MEDS: CALCITRIOL 0.25MCG CAPSULE PO SCH (08:57)
[2019-08-22] MEDS ORDERED: SODIUM CHLORIDE 0.9% 250 ML IV ONE (09:30)
[2019-08-22 11:42] LABS: HEMATOCRIT. 23.8 % (36.0-48.0); HEMOGLOBIN. 8.1 g/dL (12.0-16.0); MEAN CORPUSCULAR HEMOGLOBIN 29.3 pg (28.0-32.0); MEAN CORPUSCULAR VOLUME 86.1 fL (81.0-99.0); MEAN PLATELET VOLUME 9.3 fl (7.4-10.4); PLATELET 199 x1000/uL (130-400); RED BLOOD CELL COUNT 2.76 mill/uL (4.2-5.4); RED CELL DISTRIBUTION WIDTH 13.8 % (11.6-14.6)
[2019-08-22 12:00] VITALS: BP 95/45
[2019-08-22 14:09] LABS: PLATELET ESTIMATE NORMAL
[2019-08-22 16:00] VITALS: BP 97/47
[2019-08-22 20:00] VITALS: BP 102/38
[2019-08-22] MEDS: MORPHINE SULFATE 2 MG/ML CPJ (NOT FOR IM USE) IV PRN (21:26)
[2019-08-22] MEDS: ZOLPIDEM TARTRATE 5MG TABLET PO PRN (21:35)
[2019-08-23] VITALS: BP 127/48
[2019-08-23 04:00] VITALS: BP 126/44
[2019-08-23] MEDS: GABAPENTIN 300MG CAPSULE PO SCH ×2 (05:35→13:53)
[2019-08-23] MEDS: MORPHINE SULFATE 2 MG/ML CPJ (NOT FOR IM USE) IV PRN (05:36)
[2019-08-23] MEDS: HYDRALAZINE HCL 100MG TABLET PO SCH ×2 (05:46→13:52)
[2019-08-23] MEDS: CLONIDINE 0.1MG TABLET PO SCH (05:46)
[2019-08-23 08:00] VITALS: BP 121/50
[2019-08-23] MEDS: CALCITRIOL 0.25MCG CAPSULE PO SCH (08:39)
[2019-08-23] MEDS: LEVETIRACETAM 500MG TABLET PO SCH (08:39)
[2019-08-23] MEDS: DOCUSATE SODIUM 250MG CAPSULE PO SCH (08:39)
[2019-08-23] MEDS: FERROUS SULFATE 325MG TABLET PO SCH (08:39)
[2019-08-23] MEDS: PANTOPRAZOLE 40MG DR TABLET PO SCH (08:39)
[2019-08-23] MEDS: ESTROGENS CONJUGATED 0.3 MG PO SCH (08:39)
[2019-08-23] MEDS: CARVEDILOL 12.5MG TABLET PO SCH (08:42)
[2019-08-23] MEDS: SERTRALINE HCL 25MG TABLET PO SCH (08:42)
[2019-08-23 12:00] VITALS: BP 146/70
[2019-08-23 13:27] VITALS: BP 146/70
[2019-08-23 16:00] VITALS: BP 133/63
== END 2019-08-23 16:26 | disposition home or self-care (01) | DRG 253 ==
LOC: ER 11:08 → 7WST 22:33 → ENRESERV 08-18 05:25
PROVIDERS: ADMIT Internal Medicine; ATTEND Internal Medicine
PROC: 5A1D70Z Performance of Urinary Filtration, Intermittent, Less than 6 Hours Per Day (ICD-10-PCS; 2019-08-18)
PROC: 30233N1 Transfusion of Nonautologous Red Blood Cells into Peripheral Vein, Percutaneous Approach (ICD-10-PCS; principal; 2019-08-19)
PROC: 5A1D70Z Performance of Urinary Filtration, Intermittent, Less than 6 Hours Per Day (ICD-10-PCS; 2019-08-20)
PROC: 0DBL8ZZ Excision of Transverse Colon, Via Natural or Artificial Opening Endoscopic (ICD-10-PCS; 2019-08-21)
PROC: 5A1D70Z Performance of Urinary Filtration, Intermittent, Less than 6 Hours Per Day (ICD-10-PCS; 2019-08-23)
DX: K62.5 Hemorrhage of anus and rectum (principal); I13.2 Hypertensive heart and chronic kidney disease with heart failure and with stage 5 chronic kidney disease, or end stage renal disease; E11.22 Type 2 diabetes mellitus with diabetic chronic kidney disease; N18.6 End stage renal disease; I69.351 Hemiplegia and hemiparesis following cerebral infarction affecting right dominant side; R07.89 Other chest pain; K63.5 Polyp of colon; D64.9 Anemia, unspecified; E03.9 Hypothyroidism, unspecified; F32.9 Major depressive disorder, single episode, unspecified; G40.909 Epilepsy, unspecified, not intractable, without status epilepticus; I50.9 Heart failure, unspecified; F41.9 Anxiety disorder, unspecified; K59.00 Constipation, unspecified; K21.9 Gastro-esophageal reflux disease without esophagitis; K64.4 Residual hemorrhoidal skin tags; K64.8 Other hemorrhoids; K57.90 Diverticulosis of intestine, part unspecified, without perforation or abscess without bleeding; Q07.00 Arnold-Chiari syndrome without spina bifida or hydrocephalus; Z79.4 Long term (current) use of insulin; Z90.49 Acquired absence of other specified parts of digestive tract; Z91.15 Patient's noncompliance with renal dialysis; Z99.2 Dependence on renal dialysis; Z90.710 Acquired absence of both cervix and uterus; Z88.8 Allergy status to other drugs, medicaments and biological substances; Z91.048 Other nonmedicinal substance allergy status; Z82.49 Family history of ischemic heart disease and other diseases of the circulatory system; Z91.19 Patient's noncompliance with other medical treatment and regimen; Z71.89 Other specified counseling
CPT/HCPCS: 36415; 71045; 80048; 80053; 82550; 82553; 82962; 83540; 83550; 83880; 84484; 85014; 85018; 85025; 86850; 86900; 86920; 88305; 93005; 97162; 99285; J0885; J2250; J2270; J3010; J3490; P9016

== ENCOUNTER 2019-09-03 20:45 | Inpatient (IN) | payer MEDICAID ==
[~2019-09-03] VITALS: Ht 167.6 cm; Wt 72.6 kg
[2019-09-03] MEDS ORDERED: ONDANSETRON HCL 4MG/2ML INJ IV STA (23:07)
[2019-09-03] MEDS ORDERED: HYDRALAZINE 20MG/ML VIAL IV ONE (23:15)
[2019-09-04 02:00] LABS: CHLORIDE 111 mEq/L (98-107)
[2019-09-04 02:12] LABS: BASOPHILS % 1.1 % (0.0-2.0); EOSINOPHILS % 1.1 % (0.0-5.0); HEMATOCRIT. 28.4 % (36.0-48.0); HEMOGLOBIN. 9.7 g/dL (12.0-16.0); LYMPHOCYTES % 13.6 % (20.0-50.0); MEAN CORPUSCULAR HEMOGLOBIN 29.6 pg (28.0-32.0); MEAN CORPUSCULAR VOLUME 86.7 fL (81.0-99.0); MEAN PLATELET VOLUME 9.1 fl (7.4-10.4); MONOCYTES % 6.9 % (2.0-8.0); NEUTROPHILS % 77.3 % (40.0-76.0); PLATELET 297 x1000/uL (130-400); RED BLOOD CELL COUNT 3.28 mill/uL (4.2-5.4); RED CELL DISTRIBUTION WIDTH 14.7 % (11.6-14.6)
[2019-09-04] MEDS ORDERED: LABETALOL 5MG/ML SYR 20 MG/4 ML SYRINGE IV SCH (02:15)
[2019-09-04 09:00] VITALS: BP 190/102
[2019-09-04 09:30] VITALS: BP 154/64
[2019-09-04] MEDS ORDERED: ACETAMINOPHEN 325MG TABLET PO PRN (10:30)
[2019-09-04] MEDS ORDERED: ONDANSETRON HCL 4MG/2ML INJ IV PRN (10:30)
[2019-09-04] MEDS: AMLODIPINE 5MG TABLET PO SCH ×2 (10:33→23:48)
[2019-09-04 10:47] VITALS: BP 169/56
[2019-09-04 12:00] VITALS: BP 134/52
[2019-09-04] MEDS: METOCLOPRAMIDE HCL 10MG/2ML VIAL IV SCH ×3 (13:01→23:49)
[2019-09-04] MEDS: HYDRALAZINE HCL 100MG TABLET PO SCH ×2 (13:01→23:48)
[2019-09-04 16:00] VITALS: BP 133/68
[2019-09-04 17:12] LABS: HEPATITIS B SURFACE ANTIGEN NEGATIVE
[2019-09-04] MEDS ORDERED: DEXTROSE 50% WATER 50ML SYRINGE IV PRN (18:30)
[2019-09-04 19:21] LABS: HEPATITIS B SURFACE AB 454.5 mIU/mL
[2019-09-04 20:00] VITALS: BP 164/60
[2019-09-04] MEDS: BLOOD SUGAR DIAGNOSTIC STRIP TEST SCH (21:00)
[2019-09-04] MEDS: MORPHINE SULFATE 2 MG/ML CPJ (NOT FOR IM USE) IV PRN (23:47)
[2019-09-04] MEDS: INSULIN LISPRO 100 UNITS/ML SUBCUT SCH (23:47)
[2019-09-04] MEDS: LEVETIRACETAM 500MG TABLET PO SCH (23:48)
[2019-09-05] VITALS: BP 145/55
[2019-09-05 04:00] VITALS: BP 104/50
[2019-09-05] MEDS: HYDRALAZINE HCL 100MG TABLET PO SCH ×3 (06:00→21:28)
[2019-09-05] MEDS: METOCLOPRAMIDE HCL 10MG/2ML VIAL IV SCH ×4 (06:22→23:36)
[2019-09-05] MEDS: BLOOD SUGAR DIAGNOSTIC STRIP TEST SCH ×4 (07:40→21:17)
[2019-09-05 08:00] VITALS: BP 126/63
[2019-09-05] MEDS: INSULIN LISPRO 100 UNITS/ML SUBCUT SCH ×4 (08:10→21:27)
[2019-09-05] MEDS: LEVETIRACETAM 500MG TABLET PO SCH ×2 (09:31→21:28)
[2019-09-05] MEDS: AMLODIPINE 5MG TABLET PO SCH ×2 (09:32→21:29)
[2019-09-05] MEDS: FERROUS SULFATE 325MG TABLET PO SCH ×2 (09:32→18:15)
[2019-09-05] MEDS: FOLIC ACID/VITAMIN B COMP W-C TABLET PO SCH (09:44)
[2019-09-05] MEDS: SEVELAMER CARBONATE 800 MG TABLET PO SCH ×3 (09:44→18:20)
[2019-09-05 09:52] LABS: BASOPHILS % 0.8 % (0.0-2.0); EOSINOPHILS % 2.1 % (0.0-5.0); HEMATOCRIT. 25.2 % (36.0-48.0); HEMOGLOBIN. 8.7 g/dL (12.0-16.0); LYMPHOCYTES % 17.6 % (20.0-50.0); MEAN CORPUSCULAR HEMOGLOBIN 30.3 pg (28.0-32.0); MEAN CORPUSCULAR VOLUME 87.7 fL (81.0-99.0); MEAN PLATELET VOLUME 8.9 fl (7.4-10.4); MONOCYTES % 9.3 % (2.0-8.0); NEUTROPHILS % 70.2 % (40.0-76.0); PLATELET 251 x1000/uL (130-400); RED BLOOD CELL COUNT 2.87 mill/uL (4.2-5.4); RED CELL DISTRIBUTION WIDTH 14.4 % (11.6-14.6)
[2019-09-05 12:00] VITALS: BP 132/59
[2019-09-05] MEDS ORDERED: ZOLPIDEM TARTRATE 5MG TABLET PO PRN (14:00)
[2019-09-05 16:00] VITALS: BP 139/43
[2019-09-05] MEDS: MORPHINE SULFATE 2 MG/ML CPJ (NOT FOR IM USE) IV PRN (21:28)
[2019-09-06 00:02] VITALS: BP 114/51
[2019-09-06 04:51] VITALS: BP 142/53
[2019-09-06] MEDS: HYDRALAZINE HCL 100MG TABLET PO SCH ×2 (06:28→15:35)
[2019-09-06] MEDS: METOCLOPRAMIDE HCL 10MG/2ML VIAL IV SCH ×2 (06:29→15:34)
[2019-09-06] MEDS: MORPHINE SULFATE 2 MG/ML CPJ (NOT FOR IM USE) IV PRN (06:29)
[2019-09-06 07:01] LABS: EOSINOPHILS % 2.6 % (0.0-5.0); HEMATOCRIT. 26.5 % (36.0-48.0); LYMPHOCYTES % 18.2 % (20.0-50.0); MEAN CORPUSCULAR VOLUME 88.6 fL (81.0-99.0); MONOCYTES % 9.4 % (2.0-8.0); NEUTROPHILS % 68.8 % (40.0-76.0); PLATELET 256 x1000/uL (130-400); RED BLOOD CELL COUNT 2.99 mill/uL (4.2-5.4); RED CELL DISTRIBUTION WIDTH 14.7 % (11.6-14.6)
[2019-09-06] MEDS: BLOOD SUGAR DIAGNOSTIC STRIP TEST SCH ×2 (07:40→12:40)
[2019-09-06] MEDS: INSULIN LISPRO 100 UNITS/ML SUBCUT SCH ×2 (08:10→13:10)
[2019-09-06] MEDS: LEVETIRACETAM 500MG TABLET PO SCH (08:51)
[2019-09-06] MEDS: SEVELAMER CARBONATE 800 MG TABLET PO SCH ×2 (08:51→15:34)
[2019-09-06] MEDS: FERROUS SULFATE 325MG TABLET PO SCH (08:51)
[2019-09-06] MEDS: FOLIC ACID/VITAMIN B COMP W-C TABLET PO SCH (08:51)
[2019-09-06] MEDS: AMLODIPINE 5MG TABLET PO SCH (09:00)
[2019-09-06 16:52] VITALS: BP 157/62
[2019-09-06] MEDS ORDERED: EPOETIN ALFA 4000UNITS/ML VIAL SUBCUT SCH (21:00)
== END 2019-09-06 17:09 | disposition home or self-care (01) | DRG 199 ==
LOC: ER 20:45 → 7WST 09-04 03:03 → ENRESERV 09-04 07:41
PROVIDERS: ADMIT Internal Medicine; ATTEND Internal Medicine
PROC: 5A1D70Z Performance of Urinary Filtration, Intermittent, Less than 6 Hours Per Day (ICD-10-PCS; principal; 2019-09-04)
PROC: 5A1D70Z Performance of Urinary Filtration, Intermittent, Less than 6 Hours Per Day (ICD-10-PCS; 2019-09-04)
DX: I16.0 Hypertensive urgency (principal); E11.22 Type 2 diabetes mellitus with diabetic chronic kidney disease; E87.8 Other disorders of electrolyte and fluid balance, not elsewhere classified; E44.1 Mild protein-calorie malnutrition; I27.20 Pulmonary hypertension, unspecified; D63.8 Anemia in other chronic diseases classified elsewhere; I12.0 Hypertensive chronic kidney disease with stage 5 chronic kidney disease or end stage renal disease; E03.9 Hypothyroidism, unspecified; F32.9 Major depressive disorder, single episode, unspecified; G40.909 Epilepsy, unspecified, not intractable, without status epilepticus; N18.6 End stage renal disease; Q07.00 Arnold-Chiari syndrome without spina bifida or hydrocephalus; Z86.73 Personal history of transient ischemic attack (TIA), and cerebral infarction without residual deficits; Z90.710 Acquired absence of both cervix and uterus; Z99.2 Dependence on renal dialysis; Z91.19 Patient's noncompliance with other medical treatment and regimen; Z82.49 Family history of ischemic heart disease and other diseases of the circulatory system; Z91.15 Patient's noncompliance with renal dialysis; Z90.49 Acquired absence of other specified parts of digestive tract
CPT/HCPCS: 36415; 71045; 80048; 80053; 82962; 83605; 84484; 85025; 86705; 86706; 86803; 87340; 93005; 93970; 99285; J0360; J1815; J2270; J2405; J2765; J3490

== ENCOUNTER 2019-10-29 21:59 | Inpatient (IN) | payer MEDICAID ==
[~2019-10-29] VITALS: Ht 152.4 cm; Wt 62.1 kg
[2019-10-29] MEDS ORDERED: CLONIDINE 0.2MG TABLET PO ONE (23:00)
[2019-10-30 01:01] LABS: CHLORIDE 112 mEq/L (98-107)
[2019-10-30] MEDS ORDERED: ACETAMINOPHEN 325MG TABLET PO ONE (01:30)
[2019-10-30] MEDS ORDERED: HYDRALAZINE 20MG/ML VIAL IV ONE (02:15)
[2019-10-30 02:33] LABS: BASOPHILS % 1.1 % (0.0-2.0); EOSINOPHILS % 0.2 % (0.0-5.0); HEMATOCRIT. 27.1 % (36.0-48.0); HEMOGLOBIN. 9.1 g/dL (12.0-16.0); LYMPHOCYTES % 7.9 % (20.0-50.0); MEAN CORPUSCULAR HEMOGLOBIN 28.5 pg (28.0-32.0); MEAN CORPUSCULAR VOLUME 85.2 fL (81.0-99.0); MEAN PLATELET VOLUME 10.2 fl (7.4-10.4); MONOCYTES % 5.3 % (2.0-8.0); NEUTROPHILS % 85.5 % (40.0-76.0); PLATELET 240 x1000/uL (130-400); RED BLOOD CELL COUNT 3.18 mill/uL (4.2-5.4); RED CELL DISTRIBUTION WIDTH 15.3 % (11.6-14.6)
[2019-10-30 08:05] VITALS: BP 164/58
[2019-10-30] MEDS ORDERED: ONDANSETRON HCL 4MG/2ML INJ IV PRN (09:15)
[2019-10-30 09:19] VITALS: BP 164/58
[2019-10-30] MEDS ORDERED: DEXTROSE 50% WATER 50ML SYRINGE IV PRN (10:45)
[2019-10-30] MEDS: ENOXAPARIN 30MG/0.3ML SYR SUBCUT SCH (10:47)
[2019-10-30] MEDS: LEVETIRACETAM 500MG TABLET PO SCH ×2 (10:59→21:34)
[2019-10-30] MEDS: FOLIC ACID/VITAMIN B COMP W-C TABLET PO SCH (10:59)
[2019-10-30] MEDS: OMEPRAZOLE 20MG CAPSULE EXTENDED RELEASE PO SCH (10:59)
[2019-10-30 12:00] VITALS: BP 153/63
[2019-10-30] MEDS: INSULIN LISPRO 100 UNITS/ML SUBCUT SCH ×3 (12:39→21:00)
[2019-10-30] MEDS: BLOOD SUGAR DIAGNOSTIC STRIP TEST SCH ×3 (12:39→21:00)
[2019-10-30] MEDS: CALCIUM ACETATE 667MG CAPSULE PO SCH ×2 (12:41→17:14)
[2019-10-30] MEDS: ACETAMINOPHEN 325MG TABLET PO PRN ×2 (12:42→21:33)
[2019-10-30] MEDS: HYDRALAZINE HCL 100MG TABLET PO SCH ×2 (14:00→22:58)
[2019-10-30] MEDS: GABAPENTIN 300MG CAPSULE PO SCH ×2 (14:56→22:57)
[2019-10-30 16:00] VITALS: BP 133/37
[2019-10-30] MEDS: HYDROCODONE/ACETAMINOPHEN 5/325MG TABLET PO PRN (17:14)
[2019-10-30 18:33] LABS: PHOSPHORUS 5.4 mg/dL (2.5-4.9)
[2019-10-30 19:02] LABS: HEPATITIS B SURFACE ANTIGEN NEGATIVE
[2019-10-30 20:00] VITALS: BP 162/71
[2019-10-30] MEDS: EPOETIN ALFA 4000UNITS/ML VIAL SUBCUT SCH (23:43)
[2019-10-31] MEDS: GABAPENTIN 300MG CAPSULE PO SCH ×3 (06:58→21:20)
[2019-10-31] MEDS: HYDRALAZINE HCL 100MG TABLET PO SCH ×3 (06:58→22:38)
[2019-10-31] MEDS: HYDROCODONE/ACETAMINOPHEN 5/325MG TABLET PO PRN ×2 (07:06→14:14)
[2019-10-31] MEDS: INSULIN LISPRO 100 UNITS/ML SUBCUT SCH ×4 (07:33→21:00)
[2019-10-31] MEDS: BLOOD SUGAR DIAGNOSTIC STRIP TEST SCH ×4 (07:47→21:20)
[2019-10-31] MEDS: OMEPRAZOLE 20MG CAPSULE EXTENDED RELEASE PO SCH (07:52)
[2019-10-31] MEDS: CALCIUM ACETATE 667MG CAPSULE PO SCH ×3 (07:52→16:53)
[2019-10-31 08:00] VITALS: BP 134/50
[2019-10-31] MEDS: FOLIC ACID/VITAMIN B COMP W-C TABLET PO SCH (08:33)
[2019-10-31] MEDS: LEVETIRACETAM 500MG TABLET PO SCH ×2 (08:33→21:20)
[2019-10-31] MEDS: ENOXAPARIN 30MG/0.3ML SYR SUBCUT SCH (08:34)
[2019-10-31 12:29] VITALS: BP 130/54
[2019-10-31 16:00] VITALS: BP 113/52
[2019-10-31] MEDS: HYDROCODONE/ACETAMINOPHEN 10/325MG TABLET PO PRN (18:25)
[2019-10-31 23:45] VITALS: BP 125/60
[2019-11-01 04:13] VITALS: BP 134/48
[2019-11-01] MEDS: HYDROCODONE/ACETAMINOPHEN 10/325MG TABLET PO PRN ×3 (04:32→20:12)
[2019-11-01 05:50] LABS: BASOPHILS % 0.8 % (0.0-2.0); HEMATOCRIT. 22.2 % (36.0-48.0); HEMOGLOBIN. 7.6 g/dL (12.0-16.0); LYMPHOCYTES % 17.8 % (20.0-50.0); MEAN CORPUSCULAR HEMOGLOBIN 28.6 pg (28.0-32.0); MEAN CORPUSCULAR VOLUME 84.2 fL (81.0-99.0); MEAN PLATELET VOLUME 9.7 fl (7.4-10.4); MONOCYTES % 11.1 % (2.0-8.0); NEUTROPHILS % 68.3 % (40.0-76.0); PLATELET 193 x1000/uL (130-400); RED BLOOD CELL COUNT 2.64 mill/uL (4.2-5.4); RED CELL DISTRIBUTION WIDTH 15.1 % (11.6-14.6)
[2019-11-01] MEDS: HYDRALAZINE HCL 100MG TABLET PO SCH ×3 (05:57→20:12)
[2019-11-01] MEDS: BLOOD SUGAR DIAGNOSTIC STRIP TEST SCH ×4 (05:57→21:10)
[2019-11-01] MEDS: GABAPENTIN 300MG CAPSULE PO SCH ×3 (06:08→20:12)
[2019-11-01] MEDS: INSULIN LISPRO 100 UNITS/ML SUBCUT SCH ×4 (07:50→21:00)
[2019-11-01 08:06] VITALS: BP 163/62
[2019-11-01] MEDS: ENOXAPARIN 30MG/0.3ML SYR SUBCUT SCH (09:00)
[2019-11-01] MEDS: CLONIDINE 0.1MG TABLET PO PRN (09:27)
[2019-11-01] MEDS: FOLIC ACID/VITAMIN B COMP W-C TABLET PO SCH (09:27)
[2019-11-01] MEDS: FAMOTIDINE 20MG TABLET PO SCH (09:27)
[2019-11-01] MEDS: LEVETIRACETAM 500MG TABLET PO SCH ×2 (09:27→20:12)
[2019-11-01] MEDS: CALCIUM ACETATE 667MG CAPSULE PO SCH ×3 (09:27→17:45)
[2019-11-01 12:00] VITALS: BP 142/58
[2019-11-01] MEDS ORDERED: ZOLPIDEM TARTRATE 5MG TABLET PO PRN (15:00)
[2019-11-01] MEDS ORDERED: HYDR-4009 MT (15:44)
[2019-11-01 16:00] VITALS: BP 153/63
[2019-11-01 20:00] VITALS: BP 142/66
[2019-11-01] MEDS: EPOETIN ALFA 4000UNITS/ML VIAL SUBCUT SCH (20:11)
[2019-11-02] VITALS: BP 118/45
[2019-11-02] MEDS: HYDROCODONE/ACETAMINOPHEN 10/325MG TABLET PO PRN ×2 (01:49→21:50)
[2019-11-02 04:00] VITALS: BP 124/50
[2019-11-02] MEDS: BLOOD SUGAR DIAGNOSTIC STRIP TEST SCH ×4 (04:25→21:48)
[2019-11-02] MEDS: GABAPENTIN 300MG CAPSULE PO SCH ×3 (04:26→22:01)
[2019-11-02] MEDS: HYDRALAZINE HCL 100MG TABLET PO SCH ×3 (04:26→21:48)
[2019-11-02] MEDS: INSULIN LISPRO 100 UNITS/ML SUBCUT SCH ×4 (07:50→22:05)
[2019-11-02] MEDS: CALCIUM ACETATE 667MG CAPSULE PO SCH ×3 (09:45→18:16)
[2019-11-02] MEDS: FAMOTIDINE 20MG TABLET PO SCH (09:45)
[2019-11-02] MEDS: LEVETIRACETAM 500MG TABLET PO SCH ×2 (09:45→21:49)
[2019-11-02] MEDS: FOLIC ACID/VITAMIN B COMP W-C TABLET PO SCH (09:46)
[2019-11-02 12:00] VITALS: BP 124/46
[2019-11-02 12:35] LABS: BASOPHILS % 0.9 % (0.0-2.0); EOSINOPHILS % 2.9 % (0.0-5.0); HEMATOCRIT. 21.4 % (36.0-48.0); HEMOGLOBIN. 7.1 g/dL (12.0-16.0); LYMPHOCYTES % 22.4 % (20.0-50.0); MEAN CORPUSCULAR HEMOGLOBIN 28.3 pg (28.0-32.0); MEAN CORPUSCULAR VOLUME 85.5 fL (81.0-99.0); MEAN PLATELET VOLUME 9.4 fl (7.4-10.4); MONOCYTES % 10.5 % (2.0-8.0); NEUTROPHILS % 63.3 % (40.0-76.0); PLATELET 165 x1000/uL (130-400); RED CELL DISTRIBUTION WIDTH 15.1 % (11.6-14.6)
[2019-11-02 16:00] VITALS: BP 135/51
[2019-11-02 20:00] VITALS: BP 145/57
[2019-11-03] VITALS: BP 119/62
[2019-11-03 04:00] VITALS: BP 144/54
[2019-11-03] MEDS: BLOOD SUGAR DIAGNOSTIC STRIP TEST SCH ×4 (05:11→21:00)
[2019-11-03] MEDS: GABAPENTIN 300MG CAPSULE PO SCH ×3 (05:11→21:06)
[2019-11-03] MEDS: HYDRALAZINE HCL 100MG TABLET PO SCH ×3 (05:11→21:06)
[2019-11-03] MEDS: INSULIN LISPRO 100 UNITS/ML SUBCUT SCH ×4 (05:11→21:00)
[2019-11-03] MEDS: HYDROCODONE/ACETAMINOPHEN 10/325MG TABLET PO PRN (05:12)
[2019-11-03 05:58] LABS: BASOPHILS % 0.8 % (0.0-2.0); EOSINOPHILS % 3.3 % (0.0-5.0); HEMATOCRIT. 21.6 % (36.0-48.0); HEMOGLOBIN. 7.3 g/dL (12.0-16.0); LYMPHOCYTES % 15.6 % (20.0-50.0); MEAN CORPUSCULAR VOLUME 85.6 fL (81.0-99.0); MEAN PLATELET VOLUME 9.5 fl (7.4-10.4); MONOCYTES % 10.1 % (2.0-8.0); NEUTROPHILS % 70.2 % (40.0-76.0); PLATELET 184 x1000/uL (130-400); RED BLOOD CELL COUNT 2.52 mill/uL (4.2-5.4)
[2019-11-03 08:00] VITALS: BP 140/53
[2019-11-03] MEDS: LEVETIRACETAM 500MG TABLET PO SCH ×2 (09:24→21:06)
[2019-11-03] MEDS: FAMOTIDINE 20MG TABLET PO SCH (09:24)
[2019-11-03] MEDS: CALCIUM ACETATE 667MG CAPSULE PO SCH ×3 (09:24→17:27)
[2019-11-03] MEDS: FOLIC ACID/VITAMIN B COMP W-C TABLET PO SCH (09:24)
[2019-11-03 12:00] VITALS: BP 127/49
[2019-11-03 16:00] VITALS: BP 187/76
[2019-11-03] MEDS: CLONIDINE 0.1MG TABLET PO PRN (17:30)
[2019-11-03 20:00] VITALS: BP 127/51
[2019-11-04] VITALS (9 sets, daily range): BP systolic 118–152; BP diastolic 49–68
[2019-11-04] MEDS: HYDROCODONE/ACETAMINOPHEN 10/325MG TABLET PO PRN (02:32)
[2019-11-04] MEDS: GABAPENTIN 300MG CAPSULE PO SCH ×3 (05:16→22:08)
[2019-11-04] MEDS: HYDRALAZINE HCL 100MG TABLET PO SCH ×4 (05:18→22:08)
[2019-11-04] MEDS: BLOOD SUGAR DIAGNOSTIC STRIP TEST SCH ×4 (07:20→21:01)
[2019-11-04] MEDS: INSULIN LISPRO 100 UNITS/ML SUBCUT SCH ×4 (07:50→22:10)
[2019-11-04] MEDS: CALCIUM ACETATE 667MG CAPSULE PO SCH ×3 (07:50→17:50)
[2019-11-04] MEDS: LEVETIRACETAM 500MG TABLET PO SCH ×2 (09:43→22:08)
[2019-11-04] MEDS: FOLIC ACID/VITAMIN B COMP W-C TABLET PO SCH (09:43)
[2019-11-04] MEDS: FAMOTIDINE 20MG TABLET PO SCH (09:44)
[2019-11-04 18:46] LABS: BASOPHILS % 0.6 % (0.0-2.0); EOSINOPHILS % 2.7 % (0.0-5.0); HEMATOCRIT. 25.2 % (36.0-48.0); HEMOGLOBIN. 8.3 g/dL (12.0-16.0); LYMPHOCYTES % 15.5 % (20.0-50.0); MEAN CORPUSCULAR HEMOGLOBIN 29.2 pg (28.0-32.0); MEAN CORPUSCULAR VOLUME 88.1 fL (81.0-99.0); MEAN PLATELET VOLUME 9.6 fl (7.4-10.4); MONOCYTES % 10.6 % (2.0-8.0); NEUTROPHILS % 70.6 % (40.0-76.0); PLATELET 196 x1000/uL (130-400); RED BLOOD CELL COUNT 2.86 mill/uL (4.2-5.4); RED CELL DISTRIBUTION WIDTH 15.1 % (11.6-14.6)
[2019-11-04] MEDS ORDERED: EPOETIN ALFA 10000UNITS/ML VIAL SUBCUT SCH (21:00)
[2019-11-05 00:30] VITALS: BP 131/59
[2019-11-05] MEDS: HYDROCODONE/ACETAMINOPHEN 10/325MG TABLET PO PRN (04:52)
[2019-11-05] MEDS: BLOOD SUGAR DIAGNOSTIC STRIP TEST SCH ×4 (06:24→20:36)
[2019-11-05] MEDS: GABAPENTIN 300MG CAPSULE PO SCH ×2 (06:24→13:45)
[2019-11-05] MEDS: HYDRALAZINE HCL 100MG TABLET PO SCH ×2 (06:24→13:45)
[2019-11-05 08:00] VITALS: BP 156/65
[2019-11-05] MEDS: FAMOTIDINE 20MG TABLET PO SCH (08:40)
[2019-11-05] MEDS: FOLIC ACID/VITAMIN B COMP W-C TABLET PO SCH (08:40)
[2019-11-05] MEDS: CALCIUM ACETATE 667MG CAPSULE PO SCH ×3 (08:41→18:12)
[2019-11-05] MEDS: LEVETIRACETAM 500MG TABLET PO SCH ×2 (08:41→20:35)
[2019-11-05] MEDS: INSULIN LISPRO 100 UNITS/ML SUBCUT SCH ×4 (08:58→20:36)
[2019-11-05 12:00] VITALS: BP 152/64
[2019-11-05] MEDS: ACETAMINOPHEN 325MG TABLET PO PRN (14:42)
[2019-11-05 15:55] VITALS: BP 161/64
[2019-11-05 16:00] VITALS: BP 161/64
[2019-11-05 20:00] VITALS: BP 110/50
[2019-11-05] MEDS ORDERED: ATORVASTATIN CALCIUM 20MG TABLET PO SCH (21:00)
== END 2019-11-05 20:45 | disposition home health service (06) | DRG 45 ==
LOC: ER 21:59 → 6WST 10-30 02:13 → ENRESERV 10-30 07:39
PROVIDERS: ADMIT Internal Medicine; ATTEND Internal Medicine
PROC: 5A1D70Z Performance of Urinary Filtration, Intermittent, Less than 6 Hours Per Day (ICD-10-PCS; 2019-10-30)
PROC: 5A1D70Z Performance of Urinary Filtration, Intermittent, Less than 6 Hours Per Day (ICD-10-PCS; 2019-11-01)
PROC: 30233N1 Transfusion of Nonautologous Red Blood Cells into Peripheral Vein, Percutaneous Approach (ICD-10-PCS; principal; 2019-11-04)
PROC: 5A1D70Z Performance of Urinary Filtration, Intermittent, Less than 6 Hours Per Day (ICD-10-PCS; 2019-11-04)
DX: I63.81 Other cerebral infarction due to occlusion or stenosis of small artery (principal); G93.49 Other encephalopathy; E11.22 Type 2 diabetes mellitus with diabetic chronic kidney disease; E44.1 Mild protein-calorie malnutrition; I12.0 Hypertensive chronic kidney disease with stage 5 chronic kidney disease or end stage renal disease; E87.5 Hyperkalemia; I16.0 Hypertensive urgency; N18.6 End stage renal disease; D63.1 Anemia in chronic kidney disease; G40.909 Epilepsy, unspecified, not intractable, without status epilepticus; E03.9 Hypothyroidism, unspecified; G47.00 Insomnia, unspecified; F41.9 Anxiety disorder, unspecified; F32.9 Major depressive disorder, single episode, unspecified; Z82.49 Family history of ischemic heart disease and other diseases of the circulatory system; M48.00 Spinal stenosis, site unspecified; Z20.828 Contact with and (suspected) exposure to other viral communicable diseases; E78.5 Hyperlipidemia, unspecified; Z99.2 Dependence on renal dialysis; Z86.73 Personal history of transient ischemic attack (TIA), and cerebral infarction without residual deficits; Z91.15 Patient's noncompliance with renal dialysis; Z88.8 Allergy status to other drugs, medicaments and biological substances; Z91.09 Other allergy status, other than to drugs and biological substances; Z79.899 Other long term (current) drug therapy; Z79.4 Long term (current) use of insulin; Z90.710 Acquired absence of both cervix and uterus; Z90.49 Acquired absence of other specified parts of digestive tract; Z91.19 Patient's noncompliance with other medical treatment and regimen; Z68.26 Body mass index [BMI] 26.0-26.9, adult; Z79.891 Long term (current) use of opiate analgesic
CPT/HCPCS: 36415; 70551; 71045; 72141; 80048; 80053; 80061; 82728; 82962; 83036; 83735; 83880; 84100; 84145; 84484; 85025; 86803; 86850; 86900; 86920; 87340; 87635; 93005; 93880; 93970; 97110; 97116; 97162; 97530; 99285; J0885; J1650; J1815; P9016

== ENCOUNTER 2019-11-07 15:10 | Emergency (ER) | payer MEDICAID ==
[~2019-11-07] VITALS: Ht 162.6 cm; Wt 65.0 kg
[~2019-11-07 15:10] MED LIST changes: -ESTR0.3T3 PO; +HYDR-4009 MT; -INSU100I24 SQ
[2019-11-07 19:13] VITALS: BP 156/78
== END 2019-11-07 19:47 | disposition home or self-care (01) ==
LOC: ER 15:10
DX: S70.02XA Contusion of left hip, initial encounter (principal); S80.02XA Contusion of left knee, initial encounter; E11.9 Type 2 diabetes mellitus without complications; G40.909 Epilepsy, unspecified, not intractable, without status epilepticus; I12.9 Hypertensive chronic kidney disease with stage 1 through stage 4 chronic kidney disease, or unspecified chronic kidney disease; N18.9 Chronic kidney disease, unspecified; Z86.73 Personal history of transient ischemic attack (TIA), and cerebral infarction without residual deficits; Z90.49 Acquired absence of other specified parts of digestive tract; Z90.710 Acquired absence of both cervix and uterus; Z88.8 Allergy status to other drugs, medicaments and biological substances; Z91.048 Other nonmedicinal substance allergy status; W01.0XXA Fall on same level from slipping, tripping and stumbling without subsequent striking against object, initial encounter; Y93.89 Activity, other specified; Y92.018 Other place in single-family (private) house as the place of occurrence of the external cause
CPT/HCPCS: 73502; 73562; 73610; 99284

== ENCOUNTER 2019-11-08 18:15 | Inpatient (IN) | payer MEDICAID ==
[~2019-11-08] VITALS: Ht 165.1 cm; Wt 65.5 kg
[2019-11-08] MEDS ORDERED: MAGNESIUM/ALUMINUM HYDROXIDE/SIMETHICONE 30ML UDC PO STA (18:52)
[2019-11-08] MEDS ORDERED: ONDANSETRON HCL 4MG/2ML INJ IV STA (18:52)
[2019-11-08] MEDS ORDERED: SODIUM CHLORIDE 0.9% 1,000 ML IV ONE (18:52)
[2019-11-08] MEDS ORDERED: LACTULOSE 20G/30ML UDC PO ONE (19:00)
[2019-11-08] MEDS ORDERED: MINERAL OIL 30ML BOTTLE PO ONE (19:00)
[2019-11-08] MEDS ORDERED: SODIUM POLYSTYRENE SULFONATE 15 G/60 ML BOT PO ONE (19:00)
[2019-11-08] MEDS ORDERED: MAGNESIUM CITRATE 300ML SOLUTION PO ONE (19:00)
[2019-11-08 19:28] LABS: HEMATOCRIT. 25.8 % (36.0-48.0); HEMOGLOBIN. 8.6 g/dL (12.0-16.0); MEAN CORPUSCULAR HEMOGLOBIN 29.5 pg (28.0-32.0); MEAN CORPUSCULAR VOLUME 88.1 fL (81.0-99.0); MEAN PLATELET VOLUME 8.5 fl (7.4-10.4); PLATELET 260 x1000/uL (130-400); RED BLOOD CELL COUNT 2.93 mill/uL (4.2-5.4); RED CELL DISTRIBUTION WIDTH 15.6 % (11.6-14.6)
[2019-11-08 19:38] LABS: CHLORIDE 102 mEq/L (98-107)
[2019-11-08 19:40] LABS: INR 0.9
[2019-11-08 20:31] LABS: PLATELET ESTIMATE NORMAL
[2019-11-09] MEDS ORDERED: DOCUSATE SODIUM 100MG CAPSULE PO PRN
[2019-11-09] MEDS ORDERED: ONDANSETRON HCL 4MG/2ML INJ IV PRN
[2019-11-09] MEDS ORDERED: MAGNESIUM/ALUMINUM HYDROXIDE/SIMETHICONE 30ML UDC PO PRN
[2019-11-09] MEDS ORDERED: ACETAMINOPHEN 325MG TABLET PO PRN
[2019-11-09] MEDS ORDERED: LORAZEPAM 2MG/ML CPJ IV PRN
[2019-11-09] MEDS ORDERED: ENOXAPARIN 40MG/0.4ML SYR SUBCUT SCH
[2019-11-09] MEDS ORDERED: HYDROCODONE/ACETAMINOPHEN 10/325MG TABLET PO PRN
[2019-11-09] MEDS ORDERED: DEXTROSE 50% WATER 50ML SYRINGE IV PRN
[2019-11-09] MEDS ORDERED: IPRATROPIUM/ALBUTEROL 0.5-3(2.5)MG/3ML NEB NEB PRN
[2019-11-09] MEDS ORDERED: DIPHENHYDRAMINE 50MG/ML VIAL IV PRN
[2019-11-09] MEDS ORDERED: GUAIFENESIN 200MG/10ML SUGAR FREE UDC PO PRN
[2019-11-09] MEDS: MORPHINE SULFATE 2 MG/ML CPJ (NOT FOR IM USE) IV PRN (04:29)
[2019-11-09] MEDS: SODIUM CHLORIDE 0.9% INJ 3ML FLUSH IVF SCH ×3 (06:00→22:09)
[2019-11-09 06:20] LABS: HEMATOCRIT. 26.6 % (36.0-48.0); MEAN CORPUSCULAR VOLUME 89.2 fL (81.0-99.0); MEAN PLATELET VOLUME 9.1 fl (7.4-10.4); PLATELET 294 x1000/uL (130-400); RED BLOOD CELL COUNT 2.99 mill/uL (4.2-5.4); RED CELL DISTRIBUTION WIDTH 15.7 % (11.6-14.6)
[2019-11-09 06:22] LABS: CHLORIDE 104 mEq/L (98-107)
[2019-11-09 06:31] LABS: CREATINE KINASE 198 IU/L (26-192)
[2019-11-09 06:33] LABS: CREATINE KINASE MB FRACTION 2.3 ng/mL (0.5-3.6)
[2019-11-09 07:10] LABS: PLATELET ESTIMATE NORMAL
[2019-11-09] MEDS: BLOOD SUGAR DIAGNOSTIC STRIP TEST SCH ×4 (09:21→21:00)
[2019-11-09] MEDS ORDERED: HYDRALAZINE 20MG/ML VIAL IV PRN ×2 (10:15→16:00)
[2019-11-09] MEDS ORDERED: MINERAL OIL ENEMA 133ML PR ONE (11:30)
[2019-11-09 12:36] LABS: T4 FREE 0.88 ng/dL (0.76-1.46)
[2019-11-09] MEDS ORDERED: METRONIDAZOLE 500 MG PREMIX 100 ML IV ONE (13:30)
[2019-11-09] MEDS: CLONIDINE 0.1MG TABLET PO PRN (13:39)
[2019-11-09] MEDS ORDERED: LACTULOSE 20G/30ML UDC PO SCH (14:00)
[2019-11-09 16:46] LABS: CREATINE KINASE MB FRACTION 1.4 ng/mL (0.5-3.6)
[2019-11-09 20:54] VITALS: BP 143/56
[2019-11-09] MEDS: INSULIN LISPRO 100 UNITS/ML SUBCUT SCH ×2 (22:09→22:12)
[2019-11-09] MEDS: METRONIDAZOLE 500 MG PREMIX 100 ML IV SCH (22:52)
[2019-11-10] VITALS: BP 114/47
[2019-11-10 04:00] VITALS: BP 124/67
[2019-11-10] MEDS: SODIUM CHLORIDE 0.9% INJ 3ML FLUSH IVF SCH ×3 (05:20→21:06)
[2019-11-10] MEDS: METRONIDAZOLE 500 MG PREMIX 100 ML IV SCH ×3 (05:20→21:05)
[2019-11-10] MEDS: BLOOD SUGAR DIAGNOSTIC STRIP TEST SCH ×4 (06:30→20:49)
[2019-11-10] MEDS: INSULIN LISPRO 100 UNITS/ML SUBCUT SCH ×4 (07:50→21:28)
[2019-11-10] MEDS: PANTOPRAZOLE SODIUM 40 MG/VIAL IV SCH (10:12)
[2019-11-10] MEDS: ENOXAPARIN 30MG/0.3ML SYR SUBCUT SCH (10:12)
[2019-11-10] MEDS: MORPHINE SULFATE 2 MG/ML CPJ (NOT FOR IM USE) IV PRN ×2 (13:07→17:23)
[2019-11-10 13:37] LABS: BASOPHILS % 0.3 % (0.0-2.0); HEMATOCRIT. 24.3 % (36.0-48.0); HEMOGLOBIN. 8.1 g/dL (12.0-16.0); MEAN CORPUSCULAR HEMOGLOBIN 29.6 pg (28.0-32.0); MEAN CORPUSCULAR VOLUME 88.9 fL (81.0-99.0); MEAN PLATELET VOLUME 8.8 fl (7.4-10.4); MONOCYTES % 7.6 % (2.0-8.0); NEUTROPHILS % 81.1 % (40.0-76.0); PLATELET 271 x1000/uL (130-400); RED BLOOD CELL COUNT 2.73 mill/uL (4.2-5.4); RED CELL DISTRIBUTION WIDTH 15.5 % (11.6-14.6)
[2019-11-10 17:07] VITALS: BP 128/58
[2019-11-10 20:00] VITALS: BP 140/54
[2019-11-11] VITALS: BP 131/51
[2019-11-11 04:00] VITALS: BP 150/57
[2019-11-11] MEDS: METRONIDAZOLE 500 MG PREMIX 100 ML IV SCH ×2 (05:15→13:16)
[2019-11-11] MEDS: SODIUM CHLORIDE 0.9% INJ 3ML FLUSH IVF SCH ×2 (05:16→13:19)
[2019-11-11] MEDS: BLOOD SUGAR DIAGNOSTIC STRIP TEST SCH ×3 (06:28→17:57)
[2019-11-11 07:52] LABS: BASOPHILS % 0.8 % (0.0-2.0); EOSINOPHILS % 3.6 % (0.0-5.0); HEMATOCRIT. 26.8 % (36.0-48.0); HEMOGLOBIN. 9.1 g/dL (12.0-16.0); LYMPHOCYTES % 12.6 % (20.0-50.0); MEAN CORPUSCULAR HEMOGLOBIN 30.2 pg (28.0-32.0); MEAN PLATELET VOLUME 8.9 fl (7.4-10.4); MONOCYTES % 10.5 % (2.0-8.0); NEUTROPHILS % 72.5 % (40.0-76.0); PLATELET 279 x1000/uL (130-400); RED BLOOD CELL COUNT 3.01 mill/uL (4.2-5.4); RED CELL DISTRIBUTION WIDTH 15.7 % (11.6-14.6)
[2019-11-11 08:18] LABS: PHOSPHORUS 2.9 mg/dL (2.5-4.9)
[2019-11-11] MEDS: INSULIN LISPRO 100 UNITS/ML SUBCUT SCH ×3 (08:43→17:50)
[2019-11-11] MEDS: PANTOPRAZOLE SODIUM 40 MG/VIAL IV SCH (08:44)
[2019-11-11] MEDS: ENOXAPARIN 30MG/0.3ML SYR SUBCUT SCH (08:44)
[2019-11-11 12:00] VITALS: BP 162/76
[2019-11-11] MEDS: CLONIDINE 0.1MG TABLET PO PRN (13:19)
[2019-11-11 14:00] VITALS: BP 145/74
[2019-11-11 16:00] VITALS: BP 152/65
[2019-11-11 18:55] VITALS: BP 148/65
[2019-11-11] MEDS ORDERED: METRONIDAZOLE 500 MG PREMIX 100 ML IV SCH (21:00)
[2019-11-11] MEDS ORDERED: SENNOSIDES 8.6MG TABLET PO SCH (21:00)
[2019-11-12] MEDS ORDERED: FAMOTIDINE 20MG/2ML VIAL IV SCH (09:00)
== END 2019-11-11 20:05 | disposition home health service (06) | DRG 254 ==
LOC: ER 18:15 → 6WST 23:15 → EDBEDREQSVC 11-09 17:07 → ENRESERV 11-09 18:50 → 6WST 11-10 19:00
PROVIDERS: ADMIT Internal Medicine; ATTEND Internal Medicine
PROC: 5A1D70Z Performance of Urinary Filtration, Intermittent, Less than 6 Hours Per Day (ICD-10-PCS; principal; 2019-11-09)
DX: K62.89 Other specified diseases of anus and rectum (principal); I13.2 Hypertensive heart and chronic kidney disease with heart failure and with stage 5 chronic kidney disease, or end stage renal disease; E11.22 Type 2 diabetes mellitus with diabetic chronic kidney disease; I31.3 Pericardial effusion (noninflammatory); E46 Unspecified protein-calorie malnutrition; N18.6 End stage renal disease; G81.94 Hemiplegia, unspecified affecting left nondominant side; K56.41 Fecal impaction; K52.9 Noninfective gastroenteritis and colitis, unspecified; I50.9 Heart failure, unspecified; D64.9 Anemia, unspecified; K64.4 Residual hemorrhoidal skin tags; K21.9 Gastro-esophageal reflux disease without esophagitis; E03.9 Hypothyroidism, unspecified; Z99.2 Dependence on renal dialysis; E61.1 Iron deficiency; E78.00 Pure hypercholesterolemia, unspecified; E78.5 Hyperlipidemia, unspecified; F32.9 Major depressive disorder, single episode, unspecified; G40.909 Epilepsy, unspecified, not intractable, without status epilepticus; G47.00 Insomnia, unspecified; Z60.2 Problems related to living alone; I25.10 Atherosclerotic heart disease of native coronary artery without angina pectoris; Z79.4 Long term (current) use of insulin; Z86.73 Personal history of transient ischemic attack (TIA), and cerebral infarction without residual deficits; Z88.8 Allergy status to other drugs, medicaments and biological substances; Z90.49 Acquired absence of other specified parts of digestive tract; Z90.710 Acquired absence of both cervix and uterus; Z91.19 Patient's noncompliance with other medical treatment and regimen; Z68.24 Body mass index [BMI] 24.0-24.9, adult; Z91.048 Other nonmedicinal substance allergy status; Z79.899 Other long term (current) drug therapy
CPT/HCPCS: 36415; 74176; 80048; 80053; 80061; 82550; 82553; 82962; 83036; 83880; 84100; 84439; 84443; 84484; 85025; 85379; 93005; 93306; 93970; 96361; 96374; 97162; 99285; C9113; J0360; J1650; J1815; J2060; J2270; J2405; J3490; J7030

== ENCOUNTER 2019-11-15 18:36 | Emergency (ER) | payer MEDICAID ==
[~2019-11-15] VITALS: Ht 167.6 cm; Wt 86.0 kg
[2019-11-15] MEDS ORDERED: ONDANSETRON HCL 4MG/2ML INJ IV ONE ×2 (20:30→21:30)
[2019-11-15] MEDS ORDERED: CLONIDINE 0.3MG TABLET PO ONE (20:30)
[2019-11-15] MEDS ORDERED: ONDANSETRON 4MG ODT PO ONE (21:45)
[2019-11-15] MEDS ORDERED: ACETAMINOPHEN 500MG TABLET PO ONE (22:15)
[2019-11-15 23:34] LABS: CHLORIDE 113 mEq/L (98-107)
[2019-11-15 23:39] LABS: BASOPHILS % 0.8 % (0.0-2.0); EOSINOPHILS % 2.8 % (0.0-5.0); HEMATOCRIT. 27.7 % (36.0-48.0); HEMOGLOBIN. 9.2 g/dL (12.0-16.0); LYMPHOCYTES % 17.4 % (20.0-50.0); MEAN CORPUSCULAR HEMOGLOBIN 29.6 pg (28.0-32.0); MEAN CORPUSCULAR VOLUME 89.5 fL (81.0-99.0); MEAN PLATELET VOLUME 8.6 fl (7.4-10.4); MONOCYTES % 7.9 % (2.0-8.0); NEUTROPHILS % 71.1 % (40.0-76.0); PLATELET 316 x1000/uL (130-400); RED CELL DISTRIBUTION WIDTH 14.6 % (11.6-14.6)
[2019-11-15 23:41] LABS: PROTHROMBIN TIME 10.8 sec (9.6-11.0)
[2019-11-16 00:40] VITALS: BP 139/59
== END 2019-11-16 02:45 | disposition home or self-care (01) ==
LOC: ER 18:36
DX: E11.22 Type 2 diabetes mellitus with diabetic chronic kidney disease (principal); I12.0 Hypertensive chronic kidney disease with stage 5 chronic kidney disease or end stage renal disease; N18.6 End stage renal disease; R10.9 Unspecified abdominal pain; Z86.73 Personal history of transient ischemic attack (TIA), and cerebral infarction without residual deficits; E66.9 Obesity, unspecified; Z68.30 Body mass index [BMI] 30.0-30.9, adult; Z99.2 Dependence on renal dialysis; Z90.49 Acquired absence of other specified parts of digestive tract; Z90.710 Acquired absence of both cervix and uterus; Z88.8 Allergy status to other drugs, medicaments and biological substances; Z91.048 Other nonmedicinal substance allergy status
CPT/HCPCS: 36415; 71045; 80053; 82962; 83690; 84484; 85025; 85610; 93005; 99285; Q0162; J2405

== ENCOUNTER 2019-11-20 10:39 | Inpatient (IN) | payer MEDICAID ==
[~2019-11-20] VITALS: Ht 154.9 cm; Wt 74.4 kg
[2019-11-20 12:04] LABS: CHLORIDE 112 mEq/L (98-107)
[2019-11-20 14:56] LABS: EOSINOPHILS % 1.8 % (0.0-5.0); HEMATOCRIT. 26.4 % (36.0-48.0); HEMOGLOBIN. 8.9 g/dL (12.0-16.0); LYMPHOCYTES % 11.8 % (20.0-50.0); MEAN CORPUSCULAR HEMOGLOBIN 29.5 pg (28.0-32.0); MEAN CORPUSCULAR VOLUME 88.1 fL (81.0-99.0); MEAN PLATELET VOLUME 9.2 fl (7.4-10.4); MONOCYTES % 9.4 % (2.0-8.0); PLATELET 308 x1000/uL (130-400); RED CELL DISTRIBUTION WIDTH 14.8 % (11.6-14.6)
[2019-11-20] MEDS ORDERED: INSULIN REGULAR (HUMULIN R) 300UNITS/3ML IV ONE (15:00)
[2019-11-20] MEDS ORDERED: DEXTROSE 50% WATER 50ML SYRINGE IV ONE (15:00)
[2019-11-20] MEDS ORDERED: HYDRALAZINE HCL 100MG TABLET PO ONE (15:00)
[2019-11-20] MEDS ORDERED: LIDOCAINE HCL 1% 20ML VIAL (Pyxis) INJ ONE (15:08)
[2019-11-20] MEDS ORDERED: SODIUM BICARBONATE 4% (2.4MEQ) 5ML VIAL IV ONE (15:08)
[2019-11-20] MEDS ORDERED: ACETAMINOPHEN 325MG TABLET PO PRN (17:00)
[2019-11-20] MEDS ORDERED: ONDANSETRON HCL 4MG/2ML INJ IV PRN (17:00)
[2019-11-20] MEDS ORDERED: LEVOFLOXACIN 500MG PREMIX 100 ML IV SCH (17:15)
[2019-11-20] MEDS: LEVETIRACETAM 500MG TABLET PO SCH (21:59)
[2019-11-20] MEDS: HYDRALAZINE HCL 100MG TABLET PO SCH (22:11)
[2019-11-20] MEDS: CLONIDINE 0.1MG TABLET PO SCH (22:12)
[2019-11-20 23:00] VITALS: BP 233/101
[2019-11-21] VITALS: BP 233/101
[2019-11-21] MEDS ORDERED: IPRATROPIUM/ALBUTEROL 0.5-3(2.5)MG/3ML NEB HHN PRN (00:45)
[2019-11-21] MEDS ORDERED: ZOLPIDEM TARTRATE 5MG TABLET PO PRN ×2 (00:45→01:30)
[2019-11-21] MEDS: HYDROCODONE/ACETAMINOPHEN 5/325MG TABLET PO PRN (02:26)
[2019-11-21 04:00] VITALS: BP 164/68
[2019-11-21] MEDS ORDERED: DEXTROSE 50% WATER 50ML SYRINGE IV PRN (06:00)
[2019-11-21 06:28] LABS: EOSINOPHILS % 1.8 % (0.0-5.0); HEMATOCRIT. 22.6 % (36.0-48.0); HEMOGLOBIN. 7.7 g/dL (12.0-16.0); LYMPHOCYTES % 15.3 % (20.0-50.0); MEAN CORPUSCULAR HEMOGLOBIN 29.9 pg (28.0-32.0); MEAN CORPUSCULAR VOLUME 88.1 fL (81.0-99.0); MEAN PLATELET VOLUME 9.5 fl (7.4-10.4); MONOCYTES % 10.2 % (2.0-8.0); NEUTROPHILS % 71.7 % (40.0-76.0); PLATELET 248 x1000/uL (130-400); RED BLOOD CELL COUNT 2.56 mill/uL (4.2-5.4); RED CELL DISTRIBUTION WIDTH 14.5 % (11.6-14.6)
[2019-11-21] MEDS: CLONIDINE 0.1MG TABLET PO SCH ×3 (07:00→22:00)
[2019-11-21] MEDS: GABAPENTIN 300MG CAPSULE PO SCH ×3 (07:00→21:16)
[2019-11-21] MEDS: HYDRALAZINE HCL 100MG TABLET PO SCH ×3 (07:00→22:00)
[2019-11-21] MEDS: BLOOD SUGAR DIAGNOSTIC STRIP TEST SCH ×4 (07:02→21:16)
[2019-11-21] MEDS: INSULIN LISPRO 100 UNITS/ML SUBCUT SCH ×4 (07:07→21:28)
[2019-11-21 08:00] VITALS: BP 176/76
[2019-11-21] MEDS ORDERED: LACTULOSE 20G/30ML UDC PO PRN (08:45)
[2019-11-21] MEDS ORDERED: CALCITRIOL 0.25MCG CAPSULE PO SCH (09:00)
[2019-11-21] MEDS: DOCUSATE SODIUM 250MG CAPSULE PO SCH (09:06)
[2019-11-21] MEDS: LEVETIRACETAM 500MG TABLET PO SCH ×2 (09:07→21:15)
[2019-11-21] MEDS: CARVEDILOL 12.5MG TABLET PO SCH ×2 (09:07→21:15)
[2019-11-21] MEDS: CALCITRIOL 0.25MCG CAPSULE PO SCH (09:12)
[2019-11-21 10:01] LABS: TOTAL IRON BINDING CAPACITY 134 ug/dL (250-450)
[2019-11-21 12:36] VITALS: BP 153/62
[2019-11-21] MEDS: FERROUS SULFATE 325MG TABLET PO SCH ×2 (13:01→17:07)
[2019-11-21] MEDS ORDERED: BENZONATATE 100MG CAPSULE PO PRN (13:45)
[2019-11-21 16:00] VITALS: BP 111/48
[2019-11-21] MEDS ORDERED: LEVOFLOXACIN 500MG PREMIX 100 ML IV SCH (18:00)
[2019-11-21 20:00] VITALS: BP 118/58
[2019-11-21] MEDS: ATORVASTATIN CALCIUM 40MG TABLET PO SCH (21:15)
[2019-11-21] MEDS: EPOETIN ALFA 10000UNITS/ML VIAL SUBCUT SCH (21:16)
[2019-11-22] VITALS: BP 141/61
[2019-11-22 04:00] VITALS: BP 144/61
[2019-11-22] MEDS: GABAPENTIN 300MG CAPSULE PO SCH ×3 (06:07→22:38)
[2019-11-22] MEDS: CLONIDINE 0.1MG TABLET PO SCH ×3 (06:07→22:38)
[2019-11-22] MEDS: HYDRALAZINE HCL 100MG TABLET PO SCH ×3 (06:07→22:39)
[2019-11-22] MEDS: BLOOD SUGAR DIAGNOSTIC STRIP TEST SCH ×4 (06:08→21:55)
[2019-11-22] MEDS: FERROUS SULFATE 325MG TABLET PO SCH ×3 (07:01→18:03)
[2019-11-22] MEDS: INSULIN LISPRO 100 UNITS/ML SUBCUT SCH ×4 (07:01→22:41)
[2019-11-22 08:00] VITALS: BP 132/55
[2019-11-22] MEDS: DOCUSATE SODIUM 250MG CAPSULE PO SCH (09:15)
[2019-11-22] MEDS: CALCITRIOL 0.25MCG CAPSULE PO SCH (09:15)
[2019-11-22] MEDS: LEVETIRACETAM 500MG TABLET PO SCH ×2 (09:15→21:56)
[2019-11-22] MEDS: CARVEDILOL 12.5MG TABLET PO SCH ×2 (09:18→21:58)
[2019-11-22 12:00] VITALS: BP 124/57
[2019-11-22] MEDS ORDERED: LEVOFLOXACIN 250MG PREMIX 50 ML IV SCH ×2 (14:00→18:00)
[2019-11-22] MEDS ORDERED: LEVO500T2 MT (14:59)
[2019-11-22 16:00] VITALS: BP 121/47
[2019-11-22 17:38] LABS: HEMATOCRIT 21.5 % (36.0-48.0); HEMOGLOBIN 7.2 g/dL (12.0-16.0)
[2019-11-22 20:00] VITALS: BP 147/57
[2019-11-22] MEDS: ATORVASTATIN CALCIUM 40MG TABLET PO SCH (21:56)
[2019-11-23] VITALS (10 sets, daily range): BP systolic 106–148; BP diastolic 46–90
[2019-11-23] MEDS: HYDROCODONE/ACETAMINOPHEN 5/325MG TABLET PO PRN ×2 (04:03→21:03)
[2019-11-23] MEDS: FERROUS SULFATE 325MG TABLET PO SCH ×3 (06:18→18:01)
[2019-11-23] MEDS: GABAPENTIN 300MG CAPSULE PO SCH ×2 (06:18→16:05)
[2019-11-23] MEDS: BLOOD SUGAR DIAGNOSTIC STRIP TEST SCH ×4 (06:18→20:53)
[2019-11-23] MEDS: HYDRALAZINE HCL 100MG TABLET PO SCH ×2 (06:18→14:00)
[2019-11-23] MEDS: CLONIDINE 0.1MG TABLET PO SCH ×2 (06:19→14:00)
[2019-11-23] MEDS: INSULIN LISPRO 100 UNITS/ML SUBCUT SCH ×3 (06:52→18:01)
[2019-11-23 08:04] LABS: BASOPHILS % 0.7 % (0.0-2.0); EOSINOPHILS % 2.4 % (0.0-5.0); HEMATOCRIT. 21.2 % (36.0-48.0); HEMOGLOBIN. 7.2 g/dL (12.0-16.0); LYMPHOCYTES % 22.6 % (20.0-50.0); MEAN CORPUSCULAR HEMOGLOBIN 29.8 pg (28.0-32.0); MEAN CORPUSCULAR VOLUME 87.7 fL (81.0-99.0); MEAN PLATELET VOLUME 10.1 fl (7.4-10.4); MONOCYTES % 10.2 % (2.0-8.0); NEUTROPHILS % 64.1 % (40.0-76.0); PLATELET 183 x1000/uL (130-400); RED BLOOD CELL COUNT 2.42 mill/uL (4.2-5.4); RED CELL DISTRIBUTION WIDTH 14.6 % (11.6-14.6)
[2019-11-23] MEDS: CARVEDILOL 12.5MG TABLET PO SCH (09:00)
[2019-11-23] MEDS: DOCUSATE SODIUM 250MG CAPSULE PO SCH (09:02)
[2019-11-23] MEDS: CALCITRIOL 0.25MCG CAPSULE PO SCH (09:02)
[2019-11-23] MEDS: LEVETIRACETAM 500MG TABLET PO SCH (09:02)
[2019-11-23 20:58] LABS: HEMATOCRIT 25.5 % (36.0-48.0); HEMOGLOBIN 8.7 g/dL (12.0-16.0); MEAN CORPUSCULAR HEMOGLOBIN 29.8 pg (28.0-32.0); MEAN CORPUSCULAR VOLUME 87.8 fL (81.0-99.0); PLATELET 189 x1000/uL (130-400); RED BLOOD CELL COUNT 2.91 mill/uL (4.2-5.4); RED CELL DISTRIBUTION WIDTH 14.3 % (11.6-14.6)
[2019-11-24] VITALS: BP 133/51
[2019-11-24] MEDS: HYDRALAZINE HCL 100MG TABLET PO SCH ×2 (00:01→06:54)
[2019-11-24] MEDS: CLONIDINE 0.1MG TABLET PO SCH ×2 (00:01→06:54)
[2019-11-24] MEDS: ATORVASTATIN CALCIUM 40MG TABLET PO SCH (00:01)
[2019-11-24] MEDS: LEVETIRACETAM 500MG TABLET PO SCH ×2 (00:01→08:08)
[2019-11-24] MEDS: GABAPENTIN 300MG CAPSULE PO SCH ×2 (00:01→06:53)
[2019-11-24] MEDS: INSULIN LISPRO 100 UNITS/ML SUBCUT SCH ×2 (00:03→07:15)
[2019-11-24] MEDS: EPOETIN ALFA 10000UNITS/ML VIAL SUBCUT SCH (00:03)
[2019-11-24 04:00] VITALS: BP 132/52
[2019-11-24] MEDS: BLOOD SUGAR DIAGNOSTIC STRIP TEST SCH (06:54)
[2019-11-24 07:54] VITALS: BP 111/60
[2019-11-24] MEDS: CALCITRIOL 0.25MCG CAPSULE PO SCH (08:07)
[2019-11-24] MEDS: DOCUSATE SODIUM 250MG CAPSULE PO SCH (08:07)
[2019-11-24] MEDS: FERROUS SULFATE 325MG TABLET PO SCH (08:07)
[2019-11-24] MEDS: CARVEDILOL 12.5MG TABLET PO SCH ×2 (08:08)
[2019-11-24 08:44] VITALS: BP 111/60
== END 2019-11-24 09:30 | disposition home health service (06) | DRG 139 ==
LOC: ER 10:39 → 5WST 14:49 → EDBEDREQTM 14:54 → EDBEDREQ 14:54 → ENRESERV 22:06 → CANRESERV 22:06 → ENRESERV 22:19
PROVIDERS: ADMIT Internal Medicine; ATTEND Internal Medicine
PROC: 5A1D70Z Performance of Urinary Filtration, Intermittent, Less than 6 Hours Per Day (ICD-10-PCS; principal; 2019-11-20)
PROC: 02HV33Z Insertion of Infusion Device into Superior Vena Cava, Percutaneous Approach (ICD-10-PCS; 2019-11-20)
PROC: B518ZZA Fluoroscopy of Superior Vena Cava, Guidance (ICD-10-PCS; 2019-11-20)
PROC: B548ZZA Ultrasonography of Superior Vena Cava, Guidance (ICD-10-PCS; 2019-11-20)
PROC: 5A1D70Z Performance of Urinary Filtration, Intermittent, Less than 6 Hours Per Day (ICD-10-PCS; 2019-11-22)
PROC: 30233N1 Transfusion of Nonautologous Red Blood Cells into Peripheral Vein, Percutaneous Approach (ICD-10-PCS; 2019-11-23)
DX: J18.9 Pneumonia, unspecified organism (principal); I13.2 Hypertensive heart and chronic kidney disease with heart failure and with stage 5 chronic kidney disease, or end stage renal disease; E11.22 Type 2 diabetes mellitus with diabetic chronic kidney disease; E87.8 Other disorders of electrolyte and fluid balance, not elsewhere classified; E44.1 Mild protein-calorie malnutrition; I16.0 Hypertensive urgency; I50.9 Heart failure, unspecified; N18.6 End stage renal disease; D63.1 Anemia in chronic kidney disease; E03.9 Hypothyroidism, unspecified; E87.5 Hyperkalemia; R07.9 Chest pain, unspecified; F32.9 Major depressive disorder, single episode, unspecified; G40.909 Epilepsy, unspecified, not intractable, without status epilepticus; Z86.73 Personal history of transient ischemic attack (TIA), and cerebral infarction without residual deficits; Z90.49 Acquired absence of other specified parts of digestive tract; Z90.710 Acquired absence of both cervix and uterus; Z91.15 Patient's noncompliance with renal dialysis; Z99.2 Dependence on renal dialysis; Z91.19 Patient's noncompliance with other medical treatment and regimen; Z68.31 Body mass index [BMI] 31.0-31.9, adult; Z88.8 Allergy status to other drugs, medicaments and biological substances; Z91.09 Other allergy status, other than to drugs and biological substances; Z79.899 Other long term (current) drug therapy
CPT/HCPCS: 36415; 36573; 71045; 76937; 80048; 80053; 82962; 83036; 83540; 83550; 83735; 84100; 84145; 85014; 85018; 85025; 85027; 86850; 86900; 86920; 93005; 97162; 97530; 99285; C1725; J0885; J1815; J1956; J3490; P9016

== ENCOUNTER 2019-12-02 20:10 | Inpatient (IN) | payer MEDICAID ==
[~2019-12-02] VITALS: Ht 152.4 cm; Wt 68.0 kg
[~2019-12-02 20:10] MED LIST changes: +LEVO500T2 MT
[2019-12-02 21:40] LABS: BASOPHILS % 0.9 % (0.0-2.0); EOSINOPHILS % 2.5 % (0.0-5.0); HEMATOCRIT. 38.6 % (36.0-48.0); HEMOGLOBIN. 12.8 g/dL (12.0-16.0); LYMPHOCYTES % 12.8 % (20.0-50.0); MEAN PLATELET VOLUME 9.3 fl (7.4-10.4); MONOCYTES % 8.4 % (2.0-8.0); NEUTROPHILS % 75.4 % (40.0-76.0); PLATELET 273 x1000/uL (130-400); RED BLOOD CELL COUNT 4.29 mill/uL (4.2-5.4); RED CELL DISTRIBUTION WIDTH 15.1 % (11.6-14.6)
[2019-12-02 21:43] LABS: CHLORIDE 111 mEq/L (98-107)
[2019-12-02] MEDS ORDERED: ONDANSETRON HCL 4MG/2ML INJ IV ONE (21:45)
[2019-12-02] MEDS ORDERED: CLONIDINE 0.2MG TABLET PO ONE (21:45)
[2019-12-02] MEDS ORDERED: HYDRALAZINE 20MG/ML VIAL IV ONE (23:00)
[2019-12-03 09:25] VITALS: BP 136/67
[2019-12-03] MEDS ORDERED: CLONIDINE 0.1MG TABLET PO PRN (11:30)
[2019-12-03 12:00] VITALS: BP 194/69
[2019-12-03] MEDS ORDERED: HYDRALAZINE HCL 50MG TABLET PO SCH (14:00)
[2019-12-03 16:00] VITALS: BP 172/76
[2019-12-03] MEDS ORDERED: ZOLPIDEM TARTRATE 5MG TABLET PO PRN (16:00)
[2019-12-03] MEDS ORDERED: NON FORMULARY PATIENT HOME MED XX SCH (16:00)
[2019-12-03] MEDS ORDERED: DEXTROSE 50% WATER 50ML SYRINGE IV PRN (19:00)
[2019-12-03 20:00] VITALS: BP 157/64
[2019-12-03] MEDS: BLOOD SUGAR DIAGNOSTIC STRIP TEST SCH (21:15)
[2019-12-03] MEDS: CLONIDINE 0.1MG TABLET PO SCH (21:35)
[2019-12-03] MEDS: CARVEDILOL 12.5MG TABLET PO SCH (21:36)
[2019-12-03] MEDS: HYDRALAZINE HCL 100MG TABLET PO SCH (21:36)
[2019-12-03] MEDS: ATORVASTATIN CALCIUM 20MG TABLET PO SCH (21:36)
[2019-12-03] MEDS: GABAPENTIN 300MG CAPSULE PO SCH (21:36)
[2019-12-03] MEDS: LEVETIRACETAM 500MG TABLET PO SCH (21:36)
[2019-12-03] MEDS: INSULIN LISPRO 100 UNITS/ML SUBCUT SCH (21:46)
[2019-12-04] VITALS: BP 174/65
[2019-12-04] MEDS: MORPHINE SULFATE 2 MG/ML CPJ (NOT FOR IM USE) IV PRN ×2 (01:43→12:16)
[2019-12-04 03:30] VITALS: BP 143/62
[2019-12-04] MEDS: CLONIDINE 0.1MG TABLET PO SCH ×3 (06:18→21:00)
[2019-12-04] MEDS: GABAPENTIN 300MG CAPSULE PO SCH ×3 (06:18→21:01)
[2019-12-04] MEDS: HYDRALAZINE HCL 100MG TABLET PO SCH ×3 (06:19→21:00)
[2019-12-04] MEDS: BLOOD SUGAR DIAGNOSTIC STRIP TEST SCH ×4 (06:19→20:47)
[2019-12-04] MEDS: PANTOPRAZOLE 40MG DR TABLET PO SCH (06:19)
[2019-12-04] MEDS: INSULIN LISPRO 100 UNITS/ML SUBCUT SCH ×4 (06:37→20:47)
[2019-12-04 08:00] VITALS: BP_SYST 100; BP_DIAS 36; BP_DIAS 45
[2019-12-04] MEDS: CARVEDILOL 12.5MG TABLET PO SCH ×2 (09:00→21:01)
[2019-12-04] MEDS: LEVETIRACETAM 500MG TABLET PO SCH ×2 (09:07→20:47)
[2019-12-04] MEDS: CALCITRIOL 0.25MCG CAPSULE PO SCH (09:07)
[2019-12-04 12:00] VITALS: BP_SYST 115; BP_DIAS 43; BP_DIAS 45; BP_DIAS 55
[2019-12-04 16:00] VITALS: BP 128/52
[2019-12-04 20:00] VITALS: BP 127/51
[2019-12-04] MEDS: ATORVASTATIN CALCIUM 20MG TABLET PO SCH (20:47)
[2019-12-05] VITALS (7 sets, daily range): BP systolic 109–149; BP diastolic 51–62
[2019-12-05] MEDS: CLONIDINE 0.1MG TABLET PO SCH (05:58)
[2019-12-05] MEDS: HYDRALAZINE HCL 100MG TABLET PO SCH (05:58)
[2019-12-05] MEDS: GABAPENTIN 300MG CAPSULE PO SCH (06:07)
[2019-12-05] MEDS: BLOOD SUGAR DIAGNOSTIC STRIP TEST SCH ×2 (06:20→12:41)
[2019-12-05] MEDS: PANTOPRAZOLE 40MG DR TABLET PO SCH (06:21)
[2019-12-05 07:00] LABS: BASOPHILS % 0.8 % (0.0-2.0); EOSINOPHILS % 5.1 % (0.0-5.0); HEMATOCRIT. 27.6 % (36.0-48.0); HEMOGLOBIN. 9.4 g/dL (12.0-16.0); LYMPHOCYTES % 22.1 % (20.0-50.0); MEAN CORPUSCULAR HEMOGLOBIN 30.1 pg (28.0-32.0); MEAN PLATELET VOLUME 9.9 fl (7.4-10.4); MONOCYTES % 10.6 % (2.0-8.0); NEUTROPHILS % 61.4 % (40.0-76.0); PLATELET 188 x1000/uL (130-400); RED BLOOD CELL COUNT 3.11 mill/uL (4.2-5.4)
[2019-12-05] MEDS: LEVETIRACETAM 500MG TABLET PO SCH (08:22)
[2019-12-05] MEDS: CALCITRIOL 0.25MCG CAPSULE PO SCH (08:22)
[2019-12-05] MEDS: INSULIN LISPRO 100 UNITS/ML SUBCUT SCH ×2 (08:23→12:50)
[2019-12-05] MEDS: CARVEDILOL 12.5MG TABLET PO SCH (09:00)
== END 2019-12-05 18:00 | disposition home or self-care (01) | DRG 198 ==
LOC: ER 20:10 → MICUSO 23:12 → 6WST 12-03 09:38
PROVIDERS: ADMIT Internal Medicine; ATTEND Internal Medicine
PROC: 5A1D70Z Performance of Urinary Filtration, Intermittent, Less than 6 Hours Per Day (ICD-10-PCS; principal; 2019-12-03)
PROC: 5A1D70Z Performance of Urinary Filtration, Intermittent, Less than 6 Hours Per Day (ICD-10-PCS; 2019-12-05)
DX: I24.8 Other forms of acute ischemic heart disease (principal); I13.2 Hypertensive heart and chronic kidney disease with heart failure and with stage 5 chronic kidney disease, or end stage renal disease; E11.22 Type 2 diabetes mellitus with diabetic chronic kidney disease; N18.6 End stage renal disease; E44.1 Mild protein-calorie malnutrition; I50.21 Acute systolic (congestive) heart failure; G40.909 Epilepsy, unspecified, not intractable, without status epilepticus; D63.1 Anemia in chronic kidney disease; E03.9 Hypothyroidism, unspecified; I16.0 Hypertensive urgency; F32.9 Major depressive disorder, single episode, unspecified; Q07.00 Arnold-Chiari syndrome without spina bifida or hydrocephalus; Z86.73 Personal history of transient ischemic attack (TIA), and cerebral infarction without residual deficits; Z91.15 Patient's noncompliance with renal dialysis; Z99.2 Dependence on renal dialysis; Z90.710 Acquired absence of both cervix and uterus; Z91.19 Patient's noncompliance with other medical treatment and regimen
CPT/HCPCS: 36415; 71045; 80048; 80053; 82962; 83036; 83880; 84484; 85025; 93005; 96374; 97162; 97530; 99291; J0360; J1815; J2270; J2405

== ENCOUNTER 2020-01-10 16:29 | Inpatient (IN) | payer MEDICAID ==
[~2020-01-10] VITALS: Ht 157.5 cm; Wt 65.3 kg
[~2020-01-10 16:29] MED LIST changes: -LEVO500T2 MT
[2020-01-10 17:50] LABS: EOSINOPHILS % 2.2 % (0.0-5.0); HEMATOCRIT. 29.6 % (36.0-48.0); HEMOGLOBIN. 10.1 g/dL (12.0-16.0); LYMPHOCYTES % 15.6 % (20.0-50.0); MEAN CORPUSCULAR VOLUME 85.3 fL (81.0-99.0); MEAN PLATELET VOLUME 9.6 fl (7.4-10.4); MONOCYTES % 9.3 % (2.0-8.0); NEUTROPHILS % 71.9 % (40.0-76.0); PLATELET 200 x1000/uL (130-400); RED BLOOD CELL COUNT 3.47 mill/uL (4.2-5.4); RED CELL DISTRIBUTION WIDTH 13.6 % (11.6-14.6)
[2020-01-10 17:55] LABS: CHLORIDE 106 mEq/L (98-107)
[2020-01-10] MEDS ORDERED: CLONIDINE 0.1MG TABLET PO ONE (20:00)
[2020-01-10] MEDS ORDERED: HYDRALAZINE 20MG/ML VIAL IV PRN (21:30)
[2020-01-10] MEDS: HYDRALAZINE 20MG/ML VIAL IV PRN (21:41)
[2020-01-10 22:10] VITALS: BP 142/73
[2020-01-10] MEDS ORDERED: ZOLPIDEM TARTRATE 5MG TABLET PO PRN (23:05)
[2020-01-10] MEDS ORDERED: HYDROCODONE/APAP 7.5/325MG 1 TAB TABLET PO PRN (23:15)
[2020-01-10] MEDS ORDERED: DIPHENOXYLATE/ATROPINE 2.5/0.025MG TABLET PO PRN (23:30)
[2020-01-11] VITALS: BP 173/65
[2020-01-11] MEDS ORDERED: DEXTROSE 50% WATER 50ML SYRINGE IV PRN
[2020-01-11] MEDS: HYDRALAZINE 20MG/ML VIAL IV PRN (01:02)
[2020-01-11] MEDS: MORPHINE SULFATE 2 MG/ML CPJ (NOT FOR IM USE) IV PRN ×3 (01:04→19:45)
[2020-01-11] MEDS: ONDANSETRON HCL 4MG/2ML INJ IV PRN (01:04)
[2020-01-11] MEDS ORDERED: AZITHROMYCIN 500 MG in DEXT 5% WATER 250 ML IV ONE (02:00)
[2020-01-11 04:00] VITALS: BP 129/55
[2020-01-11] MEDS: HYDRALAZINE HCL 100MG TABLET PO SCH ×4 (05:56→21:46)
[2020-01-11] MEDS: PANTOPRAZOLE 40MG DR TABLET PO SCH (05:57)
[2020-01-11] MEDS: BLOOD SUGAR DIAGNOSTIC STRIP TEST SCH ×4 (06:50→21:03)
[2020-01-11] MEDS: INSULIN LISPRO 100 UNITS/ML SUBCUT SCH ×4 (06:50→21:00)
[2020-01-11 08:00] VITALS: BP 138/66
[2020-01-11] MEDS: LEVETIRACETAM 500MG TABLET PO SCH ×2 (08:36→16:52)
[2020-01-11] MEDS: SEVELAMER CARBONATE 800 MG TABLET PO SCH ×3 (08:36→16:52)
[2020-01-11] MEDS: FOLIC ACID/VITAMIN B COMP W-C TABLET PO SCH (08:36)
[2020-01-11] MEDS: CALCITRIOL 0.25MCG CAPSULE PO SCH (08:36)
[2020-01-11] MEDS: CARVEDILOL 12.5MG TABLET PO SCH ×2 (08:38→21:00)
[2020-01-11 12:00] VITALS: BP 120/66
[2020-01-11 13:00] LABS: BASOPHILS % 1.2 % (0.0-2.0); EOSINOPHILS % 3.3 % (0.0-5.0); HEMOGLOBIN. 8.7 g/dL (12.0-16.0); LYMPHOCYTES % 20.9 % (20.0-50.0); MEAN CORPUSCULAR HEMOGLOBIN 28.5 pg (28.0-32.0); MEAN CORPUSCULAR VOLUME 85.8 fL (81.0-99.0); MEAN PLATELET VOLUME 10.1 fl (7.4-10.4); MONOCYTES % 9.2 % (2.0-8.0); NEUTROPHILS % 65.4 % (40.0-76.0); PLATELET 170 x1000/uL (130-400); RED BLOOD CELL COUNT 3.03 mill/uL (4.2-5.4); RED CELL DISTRIBUTION WIDTH 13.6 % (11.6-14.6)
[2020-01-11 13:05] LABS: PHOSPHORUS 6.3 mg/dL (2.5-4.9)
[2020-01-11 16:00] VITALS: BP 175/66
[2020-01-11 20:00] VITALS: BP 127/55
[2020-01-11 20:06] LABS: CLARITY URINE CLOUDY (CLEAR); COLOR URINE YELLOW (YELLOW); KETONES URINE TRACE (NEGATIVE); LEUKOCYTE ESTERASE URINE NEGATIVE (NEGATIVE); NITRITE URINE NEGATIVE (NEGATIVE); OCCULT BLOOD URINE NEGATIVE (NEGATIVE); PROTEIN URINE 4+ (NEGATIVE); SPECIFIC GRAVITY URINE 1.022 (1.005-1.030); UROBILINOGEN URINE 0.2 E.U./dL (0.2-1.0)
[2020-01-11 20:49] LABS: *AMPHETAMINES SCREEN URINE NEGATIVE (NEGATIVE); *BARBITURATES SCREEN URINE NEGATIVE (NEGATIVE); *BENZODIAZEPINES SCREEN URINE NEGATIVE (NEGATIVE); *COCAINE SCREEN URINE NEGATIVE (NEGATIVE); METHADONE URINE SCREEN NEGATIVE (NEGATIVE); OPIATES URINE SCREEN PRESUMTIVE POSITIVE (NEGATIVE)
[2020-01-11 20:50] LABS: CANNABINOID URINE SCREEN NEGATIVE (NEGATIVE); PHENCYCLIDINE URINE SCREEN NEGATIVE (NEGATIVE)
[2020-01-11] MEDS: ATORVASTATIN CALCIUM 40MG TABLET PO SCH (21:09)
[2020-01-12] VITALS: BP 125/57
[2020-01-12] MEDS: MORPHINE SULFATE 2 MG/ML CPJ (NOT FOR IM USE) IV PRN ×3 (03:16→23:25)
[2020-01-12 04:00] VITALS: BP 135/58
[2020-01-12] MEDS: PANTOPRAZOLE 40MG DR TABLET PO SCH (06:00)
[2020-01-12] MEDS: INSULIN LISPRO 100 UNITS/ML SUBCUT SCH ×4 (06:01→20:43)
[2020-01-12] MEDS: HYDRALAZINE HCL 100MG TABLET PO SCH ×3 (06:01→21:07)
[2020-01-12] MEDS: BLOOD SUGAR DIAGNOSTIC STRIP TEST SCH ×4 (06:01→20:43)
[2020-01-12 08:00] VITALS: BP 135/67
[2020-01-12] MEDS: CARVEDILOL 12.5MG TABLET PO SCH ×2 (08:35→21:07)
[2020-01-12] MEDS: CALCITRIOL 0.25MCG CAPSULE PO SCH (08:35)
[2020-01-12] MEDS: LEVETIRACETAM 500MG TABLET PO SCH ×2 (08:35→17:54)
[2020-01-12] MEDS: SEVELAMER CARBONATE 800 MG TABLET PO SCH ×3 (08:35→17:54)
[2020-01-12] MEDS: FOLIC ACID/VITAMIN B COMP W-C TABLET PO SCH (08:35)
[2020-01-12 12:00] VITALS: BP 122/49
[2020-01-12 16:00] VITALS: BP 125/51
[2020-01-12 20:00] VITALS: BP 121/60
[2020-01-12] MEDS: ATORVASTATIN CALCIUM 40MG TABLET PO SCH (21:07)
[2020-01-12] MEDS: ONDANSETRON HCL 4MG/2ML INJ IV PRN (23:37)
[2020-01-13] VITALS: BP 136/58
[2020-01-13 04:00] VITALS: BP 138/50
[2020-01-13] MEDS: BLOOD SUGAR DIAGNOSTIC STRIP TEST SCH ×2 (06:11→12:10)
[2020-01-13] MEDS: INSULIN LISPRO 100 UNITS/ML SUBCUT SCH ×2 (06:11→13:51)
[2020-01-13] MEDS: PANTOPRAZOLE 40MG DR TABLET PO SCH (06:20)
[2020-01-13] MEDS: HYDRALAZINE HCL 100MG TABLET PO SCH ×2 (06:20→13:52)
[2020-01-13 08:00] VITALS: BP 128/51
[2020-01-13] MEDS: CALCITRIOL 0.25MCG CAPSULE PO SCH (08:40)
[2020-01-13] MEDS: FOLIC ACID/VITAMIN B COMP W-C TABLET PO SCH (08:40)
[2020-01-13] MEDS: LEVETIRACETAM 500MG TABLET PO SCH (08:42)
[2020-01-13] MEDS: SEVELAMER CARBONATE 800 MG TABLET PO SCH ×2 (08:42→13:52)
[2020-01-13] MEDS: CARVEDILOL 12.5MG TABLET PO SCH (08:42)
[2020-01-13 10:49] VITALS: BP 128/51
[2020-01-13 11:54] VITALS: BP 124/47
== END 2020-01-13 16:05 | disposition home or self-care (01) | DRG 470 ==
LOC: ER 16:29 → 8WST 19:43 → ENRESERV 20:22
PROVIDERS: ADMIT Internal Medicine; ATTEND Internal Medicine
PROC: 5A1D70Z Performance of Urinary Filtration, Intermittent, Less than 6 Hours Per Day (ICD-10-PCS; principal; 2020-01-11)
DX: I12.0 Hypertensive chronic kidney disease with stage 5 chronic kidney disease or end stage renal disease (principal); E87.70 Fluid overload, unspecified; E11.22 Type 2 diabetes mellitus with diabetic chronic kidney disease; N18.6 End stage renal disease; E03.9 Hypothyroidism, unspecified; G40.909 Epilepsy, unspecified, not intractable, without status epilepticus; K52.9 Noninfective gastroenteritis and colitis, unspecified; D63.1 Anemia in chronic kidney disease; F41.9 Anxiety disorder, unspecified; E87.6 Hypokalemia; F32.9 Major depressive disorder, single episode, unspecified; Z20.828 Contact with and (suspected) exposure to other viral communicable diseases; Z91.09 Other allergy status, other than to drugs and biological substances; Z79.899 Other long term (current) drug therapy; Z86.73 Personal history of transient ischemic attack (TIA), and cerebral infarction without residual deficits; Z99.2 Dependence on renal dialysis; Z91.15 Patient's noncompliance with renal dialysis; Z90.49 Acquired absence of other specified parts of digestive tract; Z90.710 Acquired absence of both cervix and uterus; Z82.49 Family history of ischemic heart disease and other diseases of the circulatory system; Q07.00 Arnold-Chiari syndrome without spina bifida or hydrocephalus; G93.49 Other encephalopathy; E44.1 Mild protein-calorie malnutrition; Z68.26 Body mass index [BMI] 26.0-26.9, adult
CPT/HCPCS: 36415; 71045; 80048; 80053; 80305; 81003; 82962; 83036; 83735; 83880; 84100; 84484; 85025; 93005; 96374; 97162; 99285; J0360; J0456; J1815; J2270; J2405; J7060; U0003-CS

== ENCOUNTER 2020-02-25 13:39 | Inpatient (IN) | payer MEDICAID ==
[~2020-02-25] VITALS: Ht 152.4 cm; Wt 72.1 kg
[2020-02-25 15:01] LABS: CHLORIDE 115 mEq/L (98-107)
[2020-02-25 15:02] LABS: BASOPHILS % 0.9 % (0.0-2.0); EOSINOPHILS % 1.7 % (0.0-5.0); LYMPHOCYTES % 9.7 % (20.0-50.0); MEAN CORPUSCULAR HEMOGLOBIN 28.7 pg (28.0-32.0); MEAN CORPUSCULAR VOLUME 86.3 fL (81.0-99.0); MEAN PLATELET VOLUME 9.9 fl (7.4-10.4); MONOCYTES % 8.3 % (2.0-8.0); NEUTROPHILS % 79.4 % (40.0-76.0); PLATELET 159 x1000/uL (130-400); RED BLOOD CELL COUNT 2.33 mill/uL (4.2-5.4); RED CELL DISTRIBUTION WIDTH 16.3 % (11.6-14.6)
[2020-02-25 15:10] LABS: HEMATOCRIT. 20.1 % (36.0-48.0); HEMOGLOBIN. 6.7 g/dL (12.0-16.0)
[2020-02-25] MEDS ORDERED: HYDRALAZINE 20MG/ML VIAL IV ONE (18:00)
[2020-02-25 18:21] LABS: PHOSPHORUS 8.3 mg/dL (2.5-4.9)
[2020-02-25 21:00] VITALS: BP 207/76
[2020-02-25] MEDS ORDERED: HYDROCODONE/ACETAMINOPHEN 5/325MG TABLET PO PRN (21:30)
[2020-02-25] MEDS ORDERED: IPRATROPIUM/ALBUTEROL 0.5-3(2.5)MG/3ML NEB HHN PRN (21:30)
[2020-02-25] MEDS: ACETAMINOPHEN 325MG TABLET PO PRN (22:41)
[2020-02-25] MEDS: GABAPENTIN 300MG CAPSULE PO SCH (22:42)
[2020-02-25] MEDS: HYDRALAZINE HCL 100MG TABLET PO SCH (22:42)
[2020-02-25] MEDS ORDERED: LEVOFLOXACIN 750MG PREMIX 150 ML IV NR (23:00)
[2020-02-25] MEDS: PROMETHAZINE/DEXTROMETHORPHAN 6.25-15MG/5ML BOTTLE 120ML PO PRN (23:47)
[2020-02-26] VITALS (11 sets, daily range): BP systolic 123–201; BP diastolic 51–74
[2020-02-26] MEDS: CLONIDINE 0.3MG TABLET PO PRN
[2020-02-26] MEDS ORDERED: MANNITOL 12.5G (25%) VIAL 50ML IV NR (04:15)
[2020-02-26] MEDS: GABAPENTIN 300MG CAPSULE PO SCH ×3 (06:43→20:34)
[2020-02-26] MEDS: HYDRALAZINE HCL 100MG TABLET PO SCH ×3 (06:43→20:36)
[2020-02-26] MEDS: PROMETHAZINE/DEXTROMETHORPHAN 6.25-15MG/5ML BOTTLE 120ML PO PRN ×2 (06:46→20:31)
[2020-02-26] MEDS: AMLODIPINE 10MG TABLET PO SCH (09:14)
[2020-02-26] MEDS: LEVETIRACETAM 500MG/5ML CUP PO SCH ×2 (09:14→20:34)
[2020-02-26] MEDS: CARVEDILOL 12.5MG TABLET PO SCH ×2 (09:15→20:36)
[2020-02-26 10:05] LABS: BASOPHILS % 0.9 % (0.0-2.0); EOSINOPHILS % 3.7 % (0.0-5.0); HEMATOCRIT. 29.2 % (36.0-48.0); HEMOGLOBIN. 9.9 g/dL (12.0-16.0); LYMPHOCYTES % 17.2 % (20.0-50.0); MEAN CORPUSCULAR HEMOGLOBIN 29.4 pg (28.0-32.0); MEAN CORPUSCULAR VOLUME 87.3 fL (81.0-99.0); MEAN PLATELET VOLUME 9.7 fl (7.4-10.4); MONOCYTES % 12.9 % (2.0-8.0); NEUTROPHILS % 65.3 % (40.0-76.0); PLATELET 115 x1000/uL (130-400); RED BLOOD CELL COUNT 3.35 mill/uL (4.2-5.4)
[2020-02-26 10:15] LABS: INR 1.1
[2020-02-26 12:05] LABS: TOTAL IRON BINDING CAPACITY 164 ug/dL (250-450)
[2020-02-26 12:10] LABS: FERRITIN 912 ng/mL (10-291)
[2020-02-26 12:21] LABS: HEPATITIS B SURFACE ANTIGEN NEGATIVE
[2020-02-26] MEDS ORDERED: CALCIUM ACETATE 667MG CAPSULE PO NR (18:45)
[2020-02-26] MEDS: GUAIFENESIN 600MG ER TABLET PO SCH (20:34)
[2020-02-27] VITALS (7 sets, daily range): BP systolic 120–162; BP diastolic 51–63
[2020-02-27] MEDS: GABAPENTIN 300MG CAPSULE PO SCH ×3 (06:09→21:21)
[2020-02-27] MEDS: HYDRALAZINE HCL 100MG TABLET PO SCH ×3 (06:09→21:22)
[2020-02-27 07:44] LABS: BASOPHILS % 0.8 % (0.0-2.0); EOSINOPHILS % 3.1 % (0.0-5.0); HEMATOCRIT. 30.2 % (36.0-48.0); HEMOGLOBIN. 10.1 g/dL (12.0-16.0); LYMPHOCYTES % 8.9 % (20.0-50.0); MEAN CORPUSCULAR HEMOGLOBIN 29.3 pg (28.0-32.0); MEAN CORPUSCULAR VOLUME 87.4 fL (81.0-99.0); MEAN PLATELET VOLUME 10.2 fl (7.4-10.4); NEUTROPHILS % 75.2 % (40.0-76.0); PLATELET 126 x1000/uL (130-400); RED BLOOD CELL COUNT 3.45 mill/uL (4.2-5.4); RED CELL DISTRIBUTION WIDTH 15.7 % (11.6-14.6)
[2020-02-27 08:27] LABS: PHOSPHORUS 6.8 mg/dL (2.5-4.9)
[2020-02-27] MEDS ORDERED: MORPHINE SULFATE 2 MG/ML CPJ (NOT FOR IM USE) IV SCH (09:15)
[2020-02-27] MEDS: LEVETIRACETAM 500MG/5ML CUP PO SCH ×2 (09:29→21:00)
[2020-02-27] MEDS: LEVOFLOXACIN 500MG PREMIX 100 ML IV SCH (09:29)
[2020-02-27] MEDS: GUAIFENESIN 600MG ER TABLET PO SCH ×2 (09:29→21:21)
[2020-02-27] MEDS: CALCITRIOL 0.25MCG CAPSULE PO SCH (09:30)
[2020-02-27] MEDS: CARVEDILOL 12.5MG TABLET PO SCH ×2 (09:30→21:21)
[2020-02-27] MEDS: AMLODIPINE 10MG TABLET PO SCH (09:30)
[2020-02-27] MEDS: FOLIC ACID/VITAMIN B COMP W-C TABLET PO SCH (09:30)
[2020-02-27 10:52] LABS: T4 FREE 0.77 ng/dL (0.76-1.46)
[2020-02-27] MEDS: EPOETIN ALFA 4000UNITS/ML VIAL SUBCUT SCH (21:00)
[2020-02-28 00:47] LABS: CREATINE KINASE MB FRACTION 1.4 ng/mL (0.5-3.6)
[2020-02-28 04:00] VITALS: BP 122/47
[2020-02-28 04:05] VITALS: BP 134/54
[2020-02-28] MEDS: GABAPENTIN 300MG CAPSULE PO SCH ×3 (05:11→21:24)
[2020-02-28] MEDS: HYDRALAZINE HCL 100MG TABLET PO SCH ×3 (05:11→21:25)
[2020-02-28 08:00] VITALS: BP 138/56
[2020-02-28 08:32] LABS: CREATINE KINASE 93 IU/L (26-192)
[2020-02-28 08:33] LABS: CREATINE KINASE MB FRACTION < 1.0 ng/mL (0.5-3.6)
[2020-02-28] MEDS: CARVEDILOL 12.5MG TABLET PO SCH ×2 (08:41→21:25)
[2020-02-28] MEDS: FOLIC ACID/VITAMIN B COMP W-C TABLET PO SCH (08:41)
[2020-02-28] MEDS: LEVETIRACETAM 500MG TABLET PO SCH ×2 (08:41→21:24)
[2020-02-28] MEDS: GUAIFENESIN 600MG ER TABLET PO SCH ×2 (08:41→21:24)
[2020-02-28] MEDS: CALCITRIOL 0.25MCG CAPSULE PO SCH (08:41)
[2020-02-28] MEDS: AMLODIPINE 10MG TABLET PO SCH (08:42)
[2020-02-28] MEDS: ONDANSETRON HCL 4MG/2ML INJ IV PRN (10:25)
[2020-02-28 12:00] VITALS: BP 115/45
[2020-02-28 16:00] VITALS: BP 138/55
[2020-02-28 20:00] VITALS: BP 150/74
[2020-02-29] VITALS: BP 140/57
[2020-02-29 02:36] LABS: BASOPHILS % 0.9 % (0.0-2.0); EOSINOPHILS % 0.9 % (0.0-5.0); HEMATOCRIT. 33.8 % (36.0-48.0); HEMOGLOBIN. 11.3 g/dL (12.0-16.0); LYMPHOCYTES % 11.2 % (20.0-50.0); MEAN CORPUSCULAR HEMOGLOBIN 29.6 pg (28.0-32.0); MEAN CORPUSCULAR VOLUME 88.2 fL (81.0-99.0); MONOCYTES % 10.7 % (2.0-8.0); NEUTROPHILS % 76.3 % (40.0-76.0); RED BLOOD CELL COUNT 3.83 mill/uL (4.2-5.4); RED CELL DISTRIBUTION WIDTH 15.1 % (11.6-14.6)
[2020-02-29 03:59] VITALS: BP 146/67
[2020-02-29 05:19] LABS: PLATELET 93 x1000/uL (130-400)
[2020-02-29] MEDS ORDERED: MANNITOL 12.5G (25%) VIAL 50ML IV SCH (06:00)
[2020-02-29] MEDS: HYDRALAZINE HCL 100MG TABLET PO SCH ×3 (06:00→21:40)
[2020-02-29 08:00] VITALS: BP 156/59
[2020-02-29] MEDS: FOLIC ACID/VITAMIN B COMP W-C TABLET PO SCH (08:23)
[2020-02-29] MEDS: LEVETIRACETAM 500MG TABLET PO SCH ×2 (08:23→21:40)
[2020-02-29] MEDS: CALCITRIOL 0.25MCG CAPSULE PO SCH (08:23)
[2020-02-29] MEDS: GUAIFENESIN 600MG ER TABLET PO SCH ×2 (08:23→21:40)
[2020-02-29] MEDS: CARVEDILOL 12.5MG TABLET PO SCH ×2 (08:23→21:41)
[2020-02-29] MEDS: AMLODIPINE 10MG TABLET PO SCH (08:24)
[2020-02-29] MEDS: LEVOFLOXACIN 500MG PREMIX 100 ML IV SCH (08:37)
[2020-02-29 11:44] LABS: HEMATOCRIT. 29.7 % (36.0-48.0); HEMOGLOBIN. 9.9 g/dL (12.0-16.0); MEAN CORPUSCULAR HEMOGLOBIN 29.3 pg (28.0-32.0); MEAN CORPUSCULAR VOLUME 88.2 fL (81.0-99.0); PLATELET 110 x1000/uL (130-400); RED BLOOD CELL COUNT 3.37 mill/uL (4.2-5.4); RED CELL DISTRIBUTION WIDTH 14.9 % (11.6-14.6)
[2020-02-29 12:10] VITALS: BP 129/50
[2020-02-29 12:38] LABS: PHOSPHORUS 4.5 mg/dL (2.5-4.9)
[2020-02-29 13:17] LABS: PLATELET ESTIMATE DECREASED
[2020-02-29] MEDS: ONDANSETRON HCL 4MG/2ML INJ IV PRN (13:54)
[2020-02-29 16:00] VITALS: BP 116/51
[2020-02-29 20:00] VITALS: BP 138/76
[2020-02-29] MEDS: ACETYLCYSTEINE 100MG/ML 10% VIAL 4ML INH SCH (20:37)
[2020-02-29] MEDS: IPRATROPIUM/ALBUTEROL 0.5-3(2.5)MG/3ML NEB HHN SCH (20:37)
[2020-02-29] MEDS: EPOETIN ALFA 4000UNITS/ML VIAL SUBCUT SCH (21:39)
[2020-02-29] MEDS: GABAPENTIN 300MG CAPSULE PO SCH (21:40)
[2020-03-01] VITALS: BP 139/52
[2020-03-01] MEDS: IPRATROPIUM/ALBUTEROL 0.5-3(2.5)MG/3ML NEB HHN SCH ×4 (02:15→20:25)
[2020-03-01 04:00] VITALS: BP 148/53
[2020-03-01] MEDS: ACETAMINOPHEN 325MG TABLET PO PRN (04:59)
[2020-03-01] MEDS: HYDRALAZINE HCL 100MG TABLET PO SCH ×3 (05:00→21:52)
[2020-03-01 08:17] VITALS: BP 114/44
[2020-03-01] MEDS: LEVETIRACETAM 500MG TABLET PO SCH ×2 (08:57→21:51)
[2020-03-01] MEDS: FOLIC ACID/VITAMIN B COMP W-C TABLET PO SCH (08:57)
[2020-03-01] MEDS: CALCITRIOL 0.25MCG CAPSULE PO SCH (08:57)
[2020-03-01] MEDS: GUAIFENESIN 600MG ER TABLET PO SCH ×2 (08:57→21:51)
[2020-03-01] MEDS: CARVEDILOL 12.5MG TABLET PO SCH ×2 (09:00→21:52)
[2020-03-01] MEDS: AMLODIPINE 10MG TABLET PO SCH (09:00)
[2020-03-01] MEDS: ACETYLCYSTEINE 100MG/ML 10% VIAL 4ML INH SCH ×2 (09:10→20:25)
[2020-03-01 11:21] LABS: BASOPHILS % 0.7 % (0.0-2.0); EOSINOPHILS % 1.5 % (0.0-5.0); HEMATOCRIT. 28.7 % (36.0-48.0); HEMOGLOBIN. 9.5 g/dL (12.0-16.0); LYMPHOCYTES % 11.4 % (20.0-50.0); MEAN CORPUSCULAR HEMOGLOBIN 29.2 pg (28.0-32.0); MEAN CORPUSCULAR VOLUME 88.8 fL (81.0-99.0); MONOCYTES % 11.7 % (2.0-8.0); NEUTROPHILS % 74.7 % (40.0-76.0); PLATELET 120 x1000/uL (130-400); RED BLOOD CELL COUNT 3.23 mill/uL (4.2-5.4); RED CELL DISTRIBUTION WIDTH 15.3 % (11.6-14.6)
[2020-03-01 12:00] VITALS: BP 136/52
[2020-03-01 16:30] VITALS: BP 182/72
[2020-03-01] MEDS: CLONIDINE 0.3MG TABLET PO PRN (16:39)
[2020-03-01] MEDS: GABAPENTIN 300MG CAPSULE PO SCH (21:51)
[2020-03-01 22:51] VITALS: BP 160/62
[2020-03-02] VITALS: BP 146/58
[2020-03-02] MEDS: IPRATROPIUM/ALBUTEROL 0.5-3(2.5)MG/3ML NEB HHN SCH ×3 (01:25→21:14)
[2020-03-02 04:00] VITALS: BP 146/59
[2020-03-02] MEDS: HYDRALAZINE HCL 100MG TABLET PO SCH ×3 (05:56→21:45)
[2020-03-02] MEDS: ACETAMINOPHEN 325MG TABLET PO PRN (06:01)
[2020-03-02 08:00] VITALS: BP 116/49
[2020-03-02 08:34] LABS: BASOPHILS % 0.6 % (0.0-2.0); EOSINOPHILS % 2.3 % (0.0-5.0); HEMATOCRIT. 25.5 % (36.0-48.0); HEMOGLOBIN. 8.6 g/dL (12.0-16.0); LYMPHOCYTES % 10.2 % (20.0-50.0); MEAN CORPUSCULAR HEMOGLOBIN 29.5 pg (28.0-32.0); MEAN PLATELET VOLUME 9.8 fl (7.4-10.4); MONOCYTES % 12.5 % (2.0-8.0); NEUTROPHILS % 74.4 % (40.0-76.0); PLATELET 113 x1000/uL (130-400); RED CELL DISTRIBUTION WIDTH 14.8 % (11.6-14.6)
[2020-03-02] MEDS: ACETYLCYSTEINE 100MG/ML 10% VIAL 4ML INH SCH (08:51)
[2020-03-02] MEDS: CARVEDILOL 12.5MG TABLET PO SCH ×2 (10:11→20:56)
[2020-03-02] MEDS: GUAIFENESIN 600MG ER TABLET PO SCH ×2 (10:12→20:56)
[2020-03-02] MEDS: LEVETIRACETAM 500MG TABLET PO SCH ×2 (10:12→20:56)
[2020-03-02] MEDS: CALCITRIOL 0.25MCG CAPSULE PO SCH (10:12)
[2020-03-02] MEDS: AMLODIPINE 10MG TABLET PO SCH (10:13)
[2020-03-02] MEDS: FOLIC ACID/VITAMIN B COMP W-C TABLET PO SCH (10:13)
[2020-03-02 12:00] VITALS: BP 116/51
[2020-03-02 16:00] VITALS: BP 129/51
[2020-03-02 20:00] VITALS: BP 135/59
[2020-03-03] VITALS: BP 156/62
[2020-03-03] MEDS: IPRATROPIUM/ALBUTEROL 0.5-3(2.5)MG/3ML NEB HHN SCH ×4 (01:56→21:21)
[2020-03-03 04:00] VITALS: BP 157/62
[2020-03-03] MEDS: ACETAMINOPHEN 325MG TABLET PO PRN (04:27)
[2020-03-03] MEDS: HYDRALAZINE HCL 100MG TABLET PO SCH ×3 (06:15→22:08)
[2020-03-03] MEDS: ACETYLCYSTEINE 100MG/ML 10% VIAL 4ML INH SCH ×2 (07:45→21:21)
[2020-03-03 08:00] VITALS: BP 119/43
[2020-03-03] MEDS: CARVEDILOL 12.5MG TABLET PO SCH ×2 (08:21→21:22)
[2020-03-03] MEDS: AMLODIPINE 10MG TABLET PO SCH (08:23)
[2020-03-03] MEDS: GUAIFENESIN 600MG ER TABLET PO SCH ×2 (08:50→21:22)
[2020-03-03] MEDS: CALCITRIOL 0.25MCG CAPSULE PO SCH (08:50)
[2020-03-03] MEDS: FOLIC ACID/VITAMIN B COMP W-C TABLET PO SCH (08:50)
[2020-03-03] MEDS: LEVETIRACETAM 500MG TABLET PO SCH ×2 (08:50→21:22)
[2020-03-03 12:00] VITALS: BP 143/53
[2020-03-03] MEDS ORDERED: LACTULOSE 20G/30ML UDC PO SCH (14:45)
[2020-03-03 16:00] VITALS: BP 147/65
[2020-03-03 20:00] VITALS: BP 154/62
[2020-03-03] MEDS: EPOETIN ALFA 4000UNITS/ML VIAL SUBCUT SCH (21:22)
[2020-03-04] VITALS: BP 158/64
[2020-03-04] MEDS: IPRATROPIUM/ALBUTEROL 0.5-3(2.5)MG/3ML NEB HHN SCH ×4 (02:35→20:59)
[2020-03-04 04:00] VITALS: BP 149/63
[2020-03-04] MEDS: ACETAMINOPHEN 325MG TABLET PO PRN (05:25)
[2020-03-04] MEDS: HYDRALAZINE HCL 100MG TABLET PO SCH ×3 (06:21→21:04)
[2020-03-04 08:00] VITALS: BP 111/51
[2020-03-04] MEDS: GUAIFENESIN 600MG ER TABLET PO SCH ×2 (09:17→21:04)
[2020-03-04] MEDS: CALCITRIOL 0.25MCG CAPSULE PO SCH (09:17)
[2020-03-04] MEDS: LEVETIRACETAM 500MG TABLET PO SCH ×2 (09:17→21:03)
[2020-03-04] MEDS: CARVEDILOL 12.5MG TABLET PO SCH ×2 (09:17→21:04)
[2020-03-04] MEDS: AMLODIPINE 10MG TABLET PO SCH (09:17)
[2020-03-04] MEDS: FOLIC ACID/VITAMIN B COMP W-C TABLET PO SCH (09:17)
[2020-03-04 12:00] VITALS: BP 168/70
[2020-03-04] MEDS: ACETYLCYSTEINE 100MG/ML 10% VIAL 4ML INH SCH ×2 (13:52→20:59)
[2020-03-04 16:00] VITALS: BP 178/65
[2020-03-04 20:00] VITALS: BP 147/57
[2020-03-05] VITALS: BP 163/60
[2020-03-05] MEDS: IPRATROPIUM/ALBUTEROL 0.5-3(2.5)MG/3ML NEB HHN SCH ×4 (02:23→18:50)
[2020-03-05 04:00] VITALS: BP 153/63
[2020-03-05] MEDS: HYDRALAZINE HCL 100MG TABLET PO SCH ×3 (05:59→21:13)
[2020-03-05 06:17] LABS: HEMOGLOBIN. 9.7 g/dL (12.0-16.0); MEAN CORPUSCULAR HEMOGLOBIN 29.4 pg (28.0-32.0); MEAN CORPUSCULAR VOLUME 88.1 fL (81.0-99.0); MEAN PLATELET VOLUME 9.6 fl (7.4-10.4); PLATELET 153 x1000/uL (130-400); RED BLOOD CELL COUNT 3.29 mill/uL (4.2-5.4); RED CELL DISTRIBUTION WIDTH 14.5 % (11.6-14.6)
[2020-03-05 07:25] LABS: PHOSPHORUS 5.8 mg/dL (2.5-4.9)
[2020-03-05 08:00] VITALS: BP 146/66
[2020-03-05] MEDS: CARVEDILOL 12.5MG TABLET PO SCH ×2 (09:00→21:15)
[2020-03-05] MEDS: AMLODIPINE 10MG TABLET PO SCH (09:00)
[2020-03-05 10:15] LABS: PLATELET ESTIMATE NORMAL
[2020-03-05] MEDS: ACETYLCYSTEINE 100MG/ML 10% VIAL 4ML INH SCH (10:33)
[2020-03-05] MEDS: GUAIFENESIN 600MG ER TABLET PO SCH ×2 (11:55→21:13)
[2020-03-05] MEDS: LEVETIRACETAM 500MG TABLET PO SCH ×2 (11:55→21:13)
[2020-03-05] MEDS: CALCITRIOL 0.25MCG CAPSULE PO SCH (11:55)
[2020-03-05] MEDS: FOLIC ACID/VITAMIN B COMP W-C TABLET PO SCH (11:55)
[2020-03-05 12:00] VITALS: BP 132/56
[2020-03-05 16:00] VITALS: BP 131/66
[2020-03-05 20:00] VITALS: BP 131/65
[2020-03-05] MEDS: EPOETIN ALFA 4000UNITS/ML VIAL SUBCUT SCH (21:12)
[2020-03-06] VITALS (7 sets, daily range): BP systolic 142–169; BP diastolic 52–64
[2020-03-06] MEDS: HYDRALAZINE HCL 100MG TABLET PO SCH ×3 (06:06→21:25)
[2020-03-06 07:12] LABS: BASOPHILS % 0.9 % (0.0-2.0); EOSINOPHILS % 2.5 % (0.0-5.0); HEMATOCRIT. 25.5 % (36.0-48.0); HEMOGLOBIN. 8.5 g/dL (12.0-16.0); LYMPHOCYTES % 12.1 % (20.0-50.0); MEAN CORPUSCULAR HEMOGLOBIN 29.2 pg (28.0-32.0); MEAN CORPUSCULAR VOLUME 87.2 fL (81.0-99.0); MEAN PLATELET VOLUME 9.7 fl (7.4-10.4); MONOCYTES % 13.9 % (2.0-8.0); NEUTROPHILS % 70.6 % (40.0-76.0); PLATELET 152 x1000/uL (130-400); RED BLOOD CELL COUNT 2.92 mill/uL (4.2-5.4); RED CELL DISTRIBUTION WIDTH 14.1 % (11.6-14.6)
[2020-03-06] MEDS: IPRATROPIUM/ALBUTEROL 0.5-3(2.5)MG/3ML NEB HHN SCH ×2 (07:50→10:33)
[2020-03-06] MEDS: FOLIC ACID/VITAMIN B COMP W-C TABLET PO SCH (09:03)
[2020-03-06] MEDS: GUAIFENESIN 600MG ER TABLET PO SCH ×2 (09:03→21:24)
[2020-03-06] MEDS: LEVETIRACETAM 500MG TABLET PO SCH ×2 (09:04→21:25)
[2020-03-06] MEDS: AMLODIPINE 10MG TABLET PO SCH (09:04)
[2020-03-06] MEDS: CARVEDILOL 12.5MG TABLET PO SCH ×2 (09:05→21:24)
[2020-03-06] MEDS: CALCITRIOL 0.25MCG CAPSULE PO SCH (09:16)
[2020-03-07] VITALS: BP 157/60
[2020-03-07] MEDS: IPRATROPIUM/ALBUTEROL 0.5-3(2.5)MG/3ML NEB HHN SCH ×2 (01:38→21:05)
[2020-03-07 04:00] VITALS: BP 148/60
[2020-03-07] MEDS: HYDRALAZINE HCL 100MG TABLET PO SCH ×3 (07:00→21:30)
[2020-03-07 08:00] VITALS: BP 161/62
[2020-03-07 08:21] LABS: BASOPHILS % 0.6 % (0.0-2.0); EOSINOPHILS % 2.5 % (0.0-5.0); HEMATOCRIT. 26.1 % (36.0-48.0); HEMOGLOBIN. 8.8 g/dL (12.0-16.0); LYMPHOCYTES % 9.8 % (20.0-50.0); MEAN CORPUSCULAR HEMOGLOBIN 29.3 pg (28.0-32.0); MEAN CORPUSCULAR VOLUME 86.9 fL (81.0-99.0); MEAN PLATELET VOLUME 9.2 fl (7.4-10.4); NEUTROPHILS % 74.1 % (40.0-76.0); PLATELET 182 x1000/uL (130-400); RED BLOOD CELL COUNT 3.01 mill/uL (4.2-5.4); RED CELL DISTRIBUTION WIDTH 14.3 % (11.6-14.6)
[2020-03-07] MEDS: AMLODIPINE 10MG TABLET PO SCH (09:02)
[2020-03-07] MEDS: GUAIFENESIN 600MG ER TABLET PO SCH ×2 (09:02→21:30)
[2020-03-07] MEDS: CARVEDILOL 12.5MG TABLET PO SCH ×2 (09:02→21:30)
[2020-03-07] MEDS: CALCITRIOL 0.25MCG CAPSULE PO SCH (09:02)
[2020-03-07] MEDS: LEVETIRACETAM 500MG TABLET PO SCH ×2 (09:02→21:29)
[2020-03-07] MEDS: FOLIC ACID/VITAMIN B COMP W-C TABLET PO SCH (09:02)
[2020-03-07 12:00] VITALS: BP 119/41
[2020-03-07 16:00] VITALS: BP 137/32
[2020-03-07 20:00] VITALS: BP 158/56
[2020-03-07] MEDS: ACETAMINOPHEN 325MG TABLET PO PRN (21:31)
[2020-03-07] MEDS: EPOETIN ALFA 4000UNITS/ML VIAL SUBCUT SCH (21:37)
[2020-03-08] VITALS: BP 140/57
[2020-03-08] MEDS: ACETAMINOPHEN 325MG TABLET PO PRN ×2 (03:55→21:41)
[2020-03-08 04:00] VITALS: BP 143/62
[2020-03-08] MEDS: HYDRALAZINE HCL 100MG TABLET PO SCH ×3 (06:43→22:04)
[2020-03-08 08:00] VITALS: BP 151/58
[2020-03-08] MEDS: IPRATROPIUM/ALBUTEROL 0.5-3(2.5)MG/3ML NEB HHN SCH ×4 (08:14→21:45)
[2020-03-08] MEDS: CALCITRIOL 0.25MCG CAPSULE PO SCH (08:40)
[2020-03-08] MEDS: GUAIFENESIN 600MG ER TABLET PO SCH ×2 (08:40→21:41)
[2020-03-08] MEDS: FOLIC ACID/VITAMIN B COMP W-C TABLET PO SCH (08:40)
[2020-03-08] MEDS: LEVETIRACETAM 500MG TABLET PO SCH ×2 (08:40→21:41)
[2020-03-08] MEDS: CARVEDILOL 12.5MG TABLET PO SCH ×2 (08:41→21:41)
[2020-03-08] MEDS: AMLODIPINE 10MG TABLET PO SCH (08:41)
[2020-03-08 12:00] VITALS: BP 121/49
[2020-03-08 16:00] VITALS: BP 148/58
[2020-03-08 20:00] VITALS: BP 146/57
[2020-03-09] VITALS: BP 127/52
[2020-03-09] MEDS: IPRATROPIUM/ALBUTEROL 0.5-3(2.5)MG/3ML NEB HHN SCH ×4 (01:48→21:03)
[2020-03-09 04:00] VITALS: BP 130/59
[2020-03-09] MEDS: HYDRALAZINE HCL 100MG TABLET PO SCH ×3 (06:23→22:43)
[2020-03-09 06:50] LABS: BASOPHILS % 0.7 % (0.0-2.0); EOSINOPHILS % 3.4 % (0.0-5.0); HEMATOCRIT. 25.5 % (36.0-48.0); HEMOGLOBIN. 8.8 g/dL (12.0-16.0); LYMPHOCYTES % 10.2 % (20.0-50.0); MEAN CORPUSCULAR HEMOGLOBIN 30.2 pg (28.0-32.0); MEAN CORPUSCULAR VOLUME 87.9 fL (81.0-99.0); MEAN PLATELET VOLUME 8.7 fl (7.4-10.4); MONOCYTES % 14.2 % (2.0-8.0); NEUTROPHILS % 71.5 % (40.0-76.0); PLATELET 213 x1000/uL (130-400); RED CELL DISTRIBUTION WIDTH 14.6 % (11.6-14.6)
[2020-03-09 08:00] VITALS: BP 145/60
[2020-03-09] MEDS: CARVEDILOL 12.5MG TABLET PO SCH ×2 (08:35→21:00)
[2020-03-09] MEDS: AMLODIPINE 10MG TABLET PO SCH (08:35)
[2020-03-09] MEDS: LEVETIRACETAM 500MG TABLET PO SCH ×2 (09:24→21:09)
[2020-03-09] MEDS: GUAIFENESIN 600MG ER TABLET PO SCH ×2 (09:24→21:09)
[2020-03-09] MEDS: FOLIC ACID/VITAMIN B COMP W-C TABLET PO SCH (09:24)
[2020-03-09] MEDS: CALCITRIOL 0.25MCG CAPSULE PO SCH (09:24)
[2020-03-09 12:00] VITALS: BP 140/50
[2020-03-09 16:00] VITALS: BP 161/61
[2020-03-09] MEDS: CLONIDINE 0.3MG TABLET PO PRN (16:31)
[2020-03-09 20:00] VITALS: BP 118/52
[2020-03-10] VITALS: BP 132/52
[2020-03-10] MEDS: IPRATROPIUM/ALBUTEROL 0.5-3(2.5)MG/3ML NEB HHN SCH ×4 (01:32→20:47)
[2020-03-10 04:00] VITALS: BP 140/57
[2020-03-10] MEDS: HYDRALAZINE HCL 100MG TABLET PO SCH ×3 (05:22→21:44)
[2020-03-10] MEDS: LEVETIRACETAM 500MG TABLET PO SCH ×2 (08:54→21:43)
[2020-03-10] MEDS: FOLIC ACID/VITAMIN B COMP W-C TABLET PO SCH (08:54)
[2020-03-10] MEDS: GUAIFENESIN 600MG ER TABLET PO SCH ×2 (08:54→21:44)
[2020-03-10] MEDS: CALCITRIOL 0.25MCG CAPSULE PO SCH (08:54)
[2020-03-10] MEDS: AMLODIPINE 10MG TABLET PO SCH (09:00)
[2020-03-10] MEDS: CARVEDILOL 12.5MG TABLET PO SCH ×2 (09:00→21:44)
[2020-03-10 12:00] VITALS: BP 124/55
[2020-03-10 16:00] VITALS: BP 142/58
[2020-03-10 20:00] VITALS: BP 147/59
[2020-03-11] VITALS: BP 148/58
[2020-03-11] MEDS: IPRATROPIUM/ALBUTEROL 0.5-3(2.5)MG/3ML NEB HHN SCH ×4 (02:05→20:27)
[2020-03-11 04:00] VITALS: BP 140/55
[2020-03-11] MEDS: HYDRALAZINE HCL 100MG TABLET PO SCH ×3 (05:29→22:33)
[2020-03-11 07:20] LABS: BASOPHILS % 0.6 % (0.0-2.0); EOSINOPHILS % 2.9 % (0.0-5.0); HEMATOCRIT. 25.5 % (36.0-48.0); HEMOGLOBIN. 8.6 g/dL (12.0-16.0); LYMPHOCYTES % 11.3 % (20.0-50.0); MEAN CORPUSCULAR HEMOGLOBIN 29.8 pg (28.0-32.0); MEAN CORPUSCULAR VOLUME 88.2 fL (81.0-99.0); MEAN PLATELET VOLUME 8.5 fl (7.4-10.4); MONOCYTES % 11.8 % (2.0-8.0); NEUTROPHILS % 73.4 % (40.0-76.0); PLATELET 200 x1000/uL (130-400); RED BLOOD CELL COUNT 2.89 mill/uL (4.2-5.4); RED CELL DISTRIBUTION WIDTH 14.8 % (11.6-14.6)
[2020-03-11 08:00] VITALS: BP 150/61
[2020-03-11] MEDS: CALCITRIOL 0.25MCG CAPSULE PO SCH (09:25)
[2020-03-11] MEDS: LEVETIRACETAM 500MG TABLET PO SCH ×2 (09:25→22:31)
[2020-03-11] MEDS: FOLIC ACID/VITAMIN B COMP W-C TABLET PO SCH (09:25)
[2020-03-11] MEDS: AMLODIPINE 10MG TABLET PO SCH (09:25)
[2020-03-11] MEDS: CARVEDILOL 12.5MG TABLET PO SCH ×2 (09:26→22:32)
[2020-03-11] MEDS: GUAIFENESIN 600MG ER TABLET PO SCH ×2 (09:26→22:31)
[2020-03-11 12:00] VITALS: BP 140/65
[2020-03-11 16:00] VITALS: BP 133/57
[2020-03-11 20:00] VITALS: BP 145/52
[2020-03-11] MEDS: EPOETIN ALFA 4000UNITS/ML VIAL SUBCUT SCH (22:32)
[2020-03-11] MEDS: TEMAZEPAM 15MG CAPSULE PO PRN (22:32)
[2020-03-12] VITALS: BP 130/66
[2020-03-12] MEDS: IPRATROPIUM/ALBUTEROL 0.5-3(2.5)MG/3ML NEB HHN SCH ×4 (02:30→20:33)
[2020-03-12 04:00] VITALS: BP 173/75
[2020-03-12] MEDS: HYDRALAZINE HCL 100MG TABLET PO SCH ×3 (06:24→21:01)
[2020-03-12 06:59] LABS: BASOPHILS % 0.7 % (0.0-2.0); EOSINOPHILS % 2.9 % (0.0-5.0); HEMATOCRIT. 28.2 % (36.0-48.0); HEMOGLOBIN. 9.4 g/dL (12.0-16.0); LYMPHOCYTES % 8.7 % (20.0-50.0); MEAN CORPUSCULAR HEMOGLOBIN 29.5 pg (28.0-32.0); MEAN CORPUSCULAR VOLUME 88.1 fL (81.0-99.0); MEAN PLATELET VOLUME 8.7 fl (7.4-10.4); NEUTROPHILS % 75.7 % (40.0-76.0); PLATELET 248 x1000/uL (130-400); RED CELL DISTRIBUTION WIDTH 14.6 % (11.6-14.6)
[2020-03-12 08:00] VITALS: BP 166/66
[2020-03-12] MEDS: LEVETIRACETAM 500MG TABLET PO SCH ×2 (08:50→21:01)
[2020-03-12] MEDS: CARVEDILOL 12.5MG TABLET PO SCH ×2 (08:50→21:01)
[2020-03-12] MEDS: GUAIFENESIN 600MG ER TABLET PO SCH ×2 (08:51→21:00)
[2020-03-12] MEDS: FOLIC ACID/VITAMIN B COMP W-C TABLET PO SCH (08:51)
[2020-03-12] MEDS: CALCITRIOL 0.25MCG CAPSULE PO SCH (08:51)
[2020-03-12] MEDS: AMLODIPINE 10MG TABLET PO SCH (08:51)
[2020-03-12 12:00] VITALS: BP 149/67
[2020-03-12 16:00] VITALS: BP 109/70
[2020-03-12 20:00] VITALS: BP 171/62
[2020-03-12] MEDS: TEMAZEPAM 15MG CAPSULE PO PRN (22:12)
[2020-03-13] VITALS: BP 150/59
[2020-03-13] MEDS: IPRATROPIUM/ALBUTEROL 0.5-3(2.5)MG/3ML NEB HHN SCH ×2 (01:17→20:15)
[2020-03-13] MEDS: ACETAMINOPHEN 325MG TABLET PO PRN (01:59)
[2020-03-13 04:00] VITALS: BP 156/64
[2020-03-13] MEDS: HYDRALAZINE HCL 100MG TABLET PO SCH ×3 (06:55→22:07)
[2020-03-13 08:00] VITALS: BP 169/62
[2020-03-13] MEDS: CARVEDILOL 12.5MG TABLET PO SCH ×2 (08:53→21:17)
[2020-03-13] MEDS: GUAIFENESIN 600MG ER TABLET PO SCH ×2 (08:53→21:00)
[2020-03-13] MEDS: LEVETIRACETAM 500MG TABLET PO SCH ×2 (08:53→21:17)
[2020-03-13] MEDS: CALCITRIOL 0.25MCG CAPSULE PO SCH (08:53)
[2020-03-13] MEDS: FOLIC ACID/VITAMIN B COMP W-C TABLET PO SCH (08:53)
[2020-03-13] MEDS: AMLODIPINE 10MG TABLET PO SCH (08:54)
[2020-03-13 12:00] VITALS: BP 151/58
[2020-03-13 16:00] VITALS: BP 171/73
[2020-03-13] MEDS: CLONIDINE 0.3MG TABLET PO PRN (17:03)
[2020-03-13 20:00] VITALS: BP 125/57
[2020-03-13] MEDS: EPOETIN ALFA 4000UNITS/ML VIAL SUBCUT SCH (21:17)
[2020-03-14] VITALS: BP 131/51
[2020-03-14] MEDS: IPRATROPIUM/ALBUTEROL 0.5-3(2.5)MG/3ML NEB HHN SCH ×5 (01:30→20:54)
[2020-03-14 04:00] VITALS: BP 143/62
[2020-03-14] MEDS: HYDRALAZINE HCL 100MG TABLET PO SCH ×3 (06:35→22:04)
[2020-03-14 08:00] VITALS: BP 133/53
[2020-03-14] MEDS: FOLIC ACID/VITAMIN B COMP W-C TABLET PO SCH (08:56)
[2020-03-14] MEDS: LEVETIRACETAM 500MG TABLET PO SCH ×2 (08:57→22:04)
[2020-03-14] MEDS: GUAIFENESIN 600MG ER TABLET PO SCH ×2 (08:57→22:04)
[2020-03-14] MEDS: AMLODIPINE 10MG TABLET PO SCH (08:57)
[2020-03-14] MEDS: CALCITRIOL 0.25MCG CAPSULE PO SCH (08:57)
[2020-03-14] MEDS: CARVEDILOL 12.5MG TABLET PO SCH ×2 (08:57→22:04)
[2020-03-14 10:57] LABS: BASOPHILS % 0.6 % (0.0-2.0); EOSINOPHILS % 2.1 % (0.0-5.0); HEMATOCRIT. 26.5 % (36.0-48.0); HEMOGLOBIN. 8.8 g/dL (12.0-16.0); LYMPHOCYTES % 8.5 % (20.0-50.0); MEAN CORPUSCULAR HEMOGLOBIN 29.8 pg (28.0-32.0); MEAN CORPUSCULAR VOLUME 89.1 fL (81.0-99.0); MEAN PLATELET VOLUME 8.3 fl (7.4-10.4); MONOCYTES % 11.3 % (2.0-8.0); NEUTROPHILS % 77.5 % (40.0-76.0); PLATELET 242 x1000/uL (130-400); RED BLOOD CELL COUNT 2.97 mill/uL (4.2-5.4); RED CELL DISTRIBUTION WIDTH 14.8 % (11.6-14.6)
[2020-03-14 12:00] VITALS: BP 139/57
[2020-03-14 16:00] VITALS: BP 143/59
[2020-03-14 20:00] VITALS: BP 139/57
[2020-03-15] VITALS: BP 148/56
[2020-03-15] MEDS: IPRATROPIUM/ALBUTEROL 0.5-3(2.5)MG/3ML NEB HHN SCH ×2 (02:22→20:11)
[2020-03-15 04:00] VITALS: BP 142/51
[2020-03-15] MEDS: ACETAMINOPHEN 325MG TABLET PO PRN (04:09)
[2020-03-15] MEDS: HYDRALAZINE HCL 100MG TABLET PO SCH ×3 (05:51→21:37)
[2020-03-15 07:11] LABS: BASOPHILS % 0.6 % (0.0-2.0); EOSINOPHILS % 2.9 % (0.0-5.0); HEMATOCRIT. 26.4 % (36.0-48.0); HEMOGLOBIN. 8.9 g/dL (12.0-16.0); LYMPHOCYTES % 10.1 % (20.0-50.0); MEAN CORPUSCULAR HEMOGLOBIN 29.8 pg (28.0-32.0); MEAN CORPUSCULAR VOLUME 88.2 fL (81.0-99.0); MEAN PLATELET VOLUME 8.6 fl (7.4-10.4); MONOCYTES % 12.7 % (2.0-8.0); NEUTROPHILS % 73.7 % (40.0-76.0); PLATELET 239 x1000/uL (130-400); RED CELL DISTRIBUTION WIDTH 14.9 % (11.6-14.6)
[2020-03-15 08:00] VITALS: BP 160/62
[2020-03-15] MEDS: AMLODIPINE 10MG TABLET PO SCH (08:51)
[2020-03-15] MEDS: LEVETIRACETAM 500MG TABLET PO SCH ×2 (08:51→21:36)
[2020-03-15] MEDS: FOLIC ACID/VITAMIN B COMP W-C TABLET PO SCH (08:52)
[2020-03-15] MEDS: GUAIFENESIN 600MG ER TABLET PO SCH ×2 (08:52→21:36)
[2020-03-15] MEDS: CALCITRIOL 0.25MCG CAPSULE PO SCH (08:52)
[2020-03-15] MEDS: CARVEDILOL 12.5MG TABLET PO SCH ×2 (08:52→21:37)
[2020-03-15 12:00] VITALS: BP 131/53
[2020-03-15 16:00] VITALS: BP 164/62
[2020-03-15 20:00] VITALS: BP 171/68
[2020-03-15] MEDS: CLONIDINE 0.3MG TABLET PO PRN (23:39)
[2020-03-16] VITALS: BP 161/61
[2020-03-16] MEDS: IPRATROPIUM/ALBUTEROL 0.5-3(2.5)MG/3ML NEB HHN SCH ×4 (01:04→20:43)
[2020-03-16 04:00] VITALS: BP 139/57
[2020-03-16] MEDS: HYDRALAZINE HCL 100MG TABLET PO SCH ×3 (06:12→21:03)
[2020-03-16 07:17] LABS: BASOPHILS % 0.7 % (0.0-2.0); HEMATOCRIT. 26.4 % (36.0-48.0); HEMOGLOBIN. 8.9 g/dL (12.0-16.0); LYMPHOCYTES % 8.3 % (20.0-50.0); MEAN CORPUSCULAR VOLUME 88.6 fL (81.0-99.0); MEAN PLATELET VOLUME 8.8 fl (7.4-10.4); MONOCYTES % 10.7 % (2.0-8.0); NEUTROPHILS % 78.3 % (40.0-76.0); PLATELET 231 x1000/uL (130-400); RED BLOOD CELL COUNT 2.98 mill/uL (4.2-5.4); RED CELL DISTRIBUTION WIDTH 14.9 % (11.6-14.6)
[2020-03-16 08:00] VITALS: BP 154/56
[2020-03-16] MEDS: AMLODIPINE 10MG TABLET PO SCH (09:00)
[2020-03-16] MEDS: CARVEDILOL 12.5MG TABLET PO SCH ×2 (09:00→21:03)
[2020-03-16] MEDS: CALCITRIOL 0.25MCG CAPSULE PO SCH (09:06)
[2020-03-16] MEDS: LEVETIRACETAM 500MG TABLET PO SCH ×2 (09:06→21:03)
[2020-03-16] MEDS: GUAIFENESIN 600MG ER TABLET PO SCH ×2 (09:06→21:03)
[2020-03-16] MEDS: FOLIC ACID/VITAMIN B COMP W-C TABLET PO SCH (09:06)
[2020-03-16 16:00] VITALS: BP 159/59
[2020-03-16 20:00] VITALS: BP 174/63
[2020-03-16] MEDS: EPOETIN ALFA 4000UNITS/ML VIAL SUBCUT SCH (21:04)
[2020-03-17] VITALS: BP 166/64
[2020-03-17] MEDS: CLONIDINE 0.3MG TABLET PO PRN (00:49)
[2020-03-17] MEDS: IPRATROPIUM/ALBUTEROL 0.5-3(2.5)MG/3ML NEB HHN SCH ×3 (01:10→14:51)
[2020-03-17 04:00] VITALS: BP 159/61
[2020-03-17 06:04] VITALS: BP 159/61
[2020-03-17] MEDS: HYDRALAZINE HCL 100MG TABLET PO SCH ×2 (06:21→14:49)
[2020-03-17 08:00] VITALS: BP 159/61
[2020-03-17] MEDS: FOLIC ACID/VITAMIN B COMP W-C TABLET PO SCH (08:56)
[2020-03-17] MEDS: LEVETIRACETAM 500MG TABLET PO SCH (08:56)
[2020-03-17] MEDS: AMLODIPINE 10MG TABLET PO SCH (08:57)
[2020-03-17] MEDS: CALCITRIOL 0.25MCG CAPSULE PO SCH (08:57)
[2020-03-17] MEDS: GUAIFENESIN 600MG ER TABLET PO SCH (08:57)
[2020-03-17] MEDS: CARVEDILOL 12.5MG TABLET PO SCH (08:57)
[2020-03-17 12:17] VITALS: BP 128/80
== END 2020-03-17 19:45 | disposition home or self-care (01) | DRG 133 ==
LOC: ER 13:39 → 6WST 17:59 → ENRESERV 19:22 → 6EST 03-05 23:42
PROVIDERS: ADMIT Internal Medicine; ATTEND Internal Medicine
PROC: 30233N1 Transfusion of Nonautologous Red Blood Cells into Peripheral Vein, Percutaneous Approach (ICD-10-PCS; principal; 2020-02-25)
PROC: 5A1D70Z Performance of Urinary Filtration, Intermittent, Less than 6 Hours Per Day (ICD-10-PCS; 2020-02-25)
PROC: 5A1D70Z Performance of Urinary Filtration, Intermittent, Less than 6 Hours Per Day (ICD-10-PCS; 2020-02-26)
PROC: 5A1D70Z Performance of Urinary Filtration, Intermittent, Less than 6 Hours Per Day (ICD-10-PCS; 2020-02-28)
PROC: 5A1D70Z Performance of Urinary Filtration, Intermittent, Less than 6 Hours Per Day (ICD-10-PCS; 2020-02-29)
PROC: 5A1D70Z Performance of Urinary Filtration, Intermittent, Less than 6 Hours Per Day (ICD-10-PCS; 2020-03-02)
PROC: 5A1D70Z Performance of Urinary Filtration, Intermittent, Less than 6 Hours Per Day (ICD-10-PCS; 2020-03-04)
PROC: 5A1D70Z Performance of Urinary Filtration, Intermittent, Less than 6 Hours Per Day (ICD-10-PCS; 2020-03-05)
PROC: 5A1D70Z Performance of Urinary Filtration, Intermittent, Less than 6 Hours Per Day (ICD-10-PCS; 2020-03-06)
PROC: 5A1D70Z Performance of Urinary Filtration, Intermittent, Less than 6 Hours Per Day (ICD-10-PCS; 2020-03-08)
PROC: 5A1D70Z Performance of Urinary Filtration, Intermittent, Less than 6 Hours Per Day (ICD-10-PCS; 2020-03-10)
PROC: 5A1D70Z Performance of Urinary Filtration, Intermittent, Less than 6 Hours Per Day (ICD-10-PCS; 2020-03-12)
PROC: 5A1D70Z Performance of Urinary Filtration, Intermittent, Less than 6 Hours Per Day (ICD-10-PCS; 2020-03-14)
DX: J96.00 Acute respiratory failure, unspecified whether with hypoxia or hypercapnia (principal); I13.2 Hypertensive heart and chronic kidney disease with heart failure and with stage 5 chronic kidney disease, or end stage renal disease; G93.40 Encephalopathy, unspecified; E46 Unspecified protein-calorie malnutrition; E11.22 Type 2 diabetes mellitus with diabetic chronic kidney disease; N18.6 End stage renal disease; G62.9 Polyneuropathy, unspecified; G40.909 Epilepsy, unspecified, not intractable, without status epilepticus; I25.10 Atherosclerotic heart disease of native coronary artery without angina pectoris; I50.32 Chronic diastolic (congestive) heart failure; F32.9 Major depressive disorder, single episode, unspecified; J06.9 Acute upper respiratory infection, unspecified; N25.81 Secondary hyperparathyroidism of renal origin; D63.1 Anemia in chronic kidney disease; E87.70 Fluid overload, unspecified; E03.9 Hypothyroidism, unspecified; E78.5 Hyperlipidemia, unspecified; G89.29 Other chronic pain; N63.0 Unspecified lump in unspecified breast; K59.00 Constipation, unspecified; B35.1 Tinea unguium; L60.2 Onychogryphosis; N17.9 Acute kidney failure, unspecified; Z20.828 Contact with and (suspected) exposure to other viral communicable diseases; Z82.49 Family history of ischemic heart disease and other diseases of the circulatory system; Z99.2 Dependence on renal dialysis; Z91.15 Patient's noncompliance with renal dialysis; Z86.73 Personal history of transient ischemic attack (TIA), and cerebral infarction without residual deficits; Z90.710 Acquired absence of both cervix and uterus; Z91.19 Patient's noncompliance with other medical treatment and regimen; Z88.8 Allergy status to other drugs, medicaments and biological substances; Q07.00 Arnold-Chiari syndrome without spina bifida or hydrocephalus; Z91.041 Radiographic dye allergy status; Z79.891 Long term (current) use of opiate analgesic; Z79.899 Other long term (current) drug therapy; Z68.31 Body mass index [BMI] 31.0-31.9, adult
CPT/HCPCS: 36415; 71045; 80048; 80051; 80053; 80061; 82550; 82553; 82728; 82962; 83036; 83540; 83550; 83735; 83880; 83970; 84100; 84439; 84443; 84484; 85025; 85379; 85384; 86705; 86706; 86803; 86850; 86900; 86920; 87340; 87635; 93005; 93306; 93970; 94640; 95816; 97110; 97162; 97166; 97530; 99291; J0360; J0885; J1956; J2150; J2270; J2405; J7608; P9016